=== PATIENT | male | born 1945 ===

== ENCOUNTER → 2020-07-05 13:24 | Outpatient (REF) | payer MEDICARE, SELFPAY ==
--- NOTE | 2020-07-05 13:37 | CA_ITS ---
Transthoracic Echocardiogram Patient (Last, First, Middle): Kelly Cheney, Gender: Male Date of : 1945 Age: 75 Procedure Date: 07/05/2020 Procedure Type: Transthoracic Echocardiogram Location: OP Height: 165.1 cm Weight: 64.41 kg BSA: 1.71 m2 Heart Rate: bpm BP: 130 / 66 mmHg Floor Cleaner: [facility] ([place], [place]) MD: Alonso Rajan MD Symptoms: s/p avr z95.2 mechanical Study Quality: Good ECG Rhythm: Sinus bradycardia Conclusions: - The left ventricular systolic function is normal. The visually estimated ejection fraction is between 55-60%. - Mildly increased right ventricular cavity size. - A mechanical prosthetic aortic valve is present. The prosthetic aortic valve appears to be functioning normally. - There is moderate tricuspid valve regurgitation. - Mild pulmonary hypertension is present. - There is mild dilatation of the ascending aorta measuring 4.30 cm. Findings Left Ventricle Normal left ventricular cavity size. There is moderately increased left ventricular wall thickness. The left ventricular systolic function is normal. The visually estimated ejection fraction is between 55-60%. There is no evidence of regional wall motion abnormalities. Diastolic function is indeterminate on the basis of available data. Right Ventricle Mildly increased right ventricular cavity size. There is normal right ventricular systolic function. Atria Moderate biatrial enlargement. Aortic Valve A mechanical prosthetic aortic valve is present. The prosthetic aortic valve appears to be functioning normally. The peak aortic velocity is 2.61 m/s with a calculated peak gradient of 27 mmHg. The mean gradient is 16 mmHg. The aortic valve area is 1.24 cm2. There is trace (trivial) aortic valve regurgitation. Trace para-valvular regurgitation. Mitral Valve There is moderate mitral annular calcification. There is trace mitral valve regurgitation. There is no mitral valve stenosis. Pulmonic Valve The pulmonic valve was not well visualized. There is trace pulmonic valve regurgitation. Tricuspid Valve Normal tricuspid valve structure. There is moderate tricuspid valve regurgitation. Mild pulmonary hypertension is present. Great Vessels There is mild dilatation of the ascending aorta measuring 4.30 cm. Venous The inferior vena cava is normal in size and collapses greater than 50% with inspiration. Pericardium/Pleural There is no evidence of pericardial effusion. Prior Study Comparison No significant change compared to prior study dated: 09/29/2019. Measurements 2D Linear Measurements RVIDd: 3.33 RVIDd Index: 1.95 IVSd: 1.34 0.6-0.9/0.6-1.0 cm LVIDd: 4.32 3.9-5.3/4.2-5.9 cm LVIDd Index: 2.53 2.4-3.2/2.2-3.1 cm/m2 LVIDs: 1.83 2.0-3.6 cm LVPWd: 1.37 0.7-1.1 cm Ao Root: 3.60 2.1-3.5 cm LA Diam: 4.60 2.7-3.8/3.0-4.0 cm LAIDs Index: 2.69 1.5-2.3 cm/m2 LV Mass: 277.48 67-162/88-224 g LV Mass Index: 162.27 43-95/49-115 g/m2 LVOT Diam: 1.90 3.0+(-)1.3 cm 2D Systolic Function EF 4C: 52.40 >55% EF 2C: 69.70 >55% EF BiP: 61.60 >55% Mitral Valve MV Pk E: 1.29 MV PK A: 1.24 MV Decel Time: 512.00 E/A: 1.00 E'Lateral: 6.00 E'Medial: 3.67 E/E' Med: 35.10 E/E' Lat: 21.50 PHT: 150.00 MVA PHT: 1.47 Decel Benton: 2.51 Aortic Valve AoV Pk Manny: 2.61 AoV Mn Manny: 1.81 AoV VTI: 0.53 AoV Pk Grad: 27.00 Aov Mn Grad: 16.00 THERESE Cont.VTI: 1.24 LVOT LVOT Pk Manny: 1.05 LVOT Mn Manny: 0.65 LVOT VTI: 0.23 LVOT Pk Grad: 4.00 LVOT Mn Grad: 2.00 LVOT Diam: 1.90 LVOT Area: 2.84 Diastolic Function MV Pk E: 1.29 MV Pk A: 1.24 E/A: 1.00 E'Medial: 3.67 E/E' Med: 35.10 E' Laterial: 6.00 E/E' Lat: 21.50 Tricuspid Valve TR Pk Manny: 3.03 TR Pk Grad: 37.00 RA Press: 8.00 RVSP: 45.00 Great Vessels Aorta Ao Root-2D: 3.60 2.0-3.7 cm Ao Asc: 4.30 2.1-3.4 cm Ao Arch: 3.40 Updated in Other Vendor System with Status of Final Alonso Rajan MD electronically signed on 07/06/2020 5:31:48 PM with status of Final
== END ==
LOC: HO.CARD 13:24
PROVIDERS: Visit Provider Internal Medicine
DX: I77.810 Thoracic aortic ectasia (principal); Z95.2 Presence of prosthetic heart valve
CPT/HCPCS: 93306

== ENCOUNTER → 2020-10-04 08:23 | Outpatient (BNVA) | payer MEDICARE, SELFPAY | PROVIDERS: Visit Provider Internal Medicine | DX: I07.1 Rheumatic tricuspid insufficiency (principal); I77.810 Thoracic aortic ectasia; R00.1 Bradycardia, unspecified; Z95.2 Presence of prosthetic heart valve | CPT/HCPCS: 93005; 99212 ==

== ENCOUNTER → 2021-04-13 12:51 | Outpatient (REF) | payer MEDICARE, SELFPAY ==
--- NOTE | 2021-04-13 12:54 | CA_ITS ---
Transthoracic Echocardiogram Patient (Last, First, Middle): Kelly Cheney, Gender: Male Date of : 1945 Age: 75 Procedure Date: 04/13/2021 Procedure Type: Transthoracic Echocardiogram Location: OP Height: 165.1 cm Weight: 64.41 kg BSA: 1.71 m2 Heart Rate: bpm BP: 160 / 66 mmHg Grinder Dresser: Shilpi MD: Alonso Rajan MD Front Desk Administrator: Jorge Carrillo MD Symptoms: Z95.2 - Presence of prosthetic heart valve Study Quality: Good ECG Rhythm: Sinus Conclusions: - 1. Normal LV systolic function with mild LVH with pseudonormal filling pattern 2. Mechanical aortic valve prosthesis appears to be function normally with mean gradient of 20 mm of mercury 3. Severe mitral calcification with possible mild mitral stenosis 4. Mildly dilated ascending aorta at 4.3 cm 5. Moderately elevated right ventricular systolic pressure 6. No gross pericardial effusion Findings Left Ventricle Normal left ventricular size and systolic function. There is mildly increased left ventricular wall thickness. The visually estimated ejection fraction is between 60-65%. Spectral Doppler is indicative of a pseudonormal filling pattern. Right Ventricle Moderately increased right ventricular cavity size. There is normal right ventricular systolic function. Atria The left atrium is mildly dilated. There is no evidence of interatrial shunt. The right atrium is moderately dilated. Aortic Valve A mechanical prosthetic aortic valve is present. The prosthetic aortic valve appears to be functioning normally. The mean gradient is 20 mmHg. There is trace (trivial) aortic valve regurgitation. Gradient across the mechanical process is slightly elevated at 20 mm of mercury with normal aortic ejection time with effective orifice area calculated at 1.51 centimeters sq. Mitral Valve There is mild anterior and severe posterior mitral leaflet thickening. There is severe mitral annular calcification. There is trace mitral valve regurgitation. There is mild mitral valve stenosis. Pulmonic Valve The pulmonic valve is likely normal. There is trace to mild pulmonic valve regurgitation. Tricuspid Valve Normal tricuspid valve structure. There is moderate tricuspid valve regurgitation. Mildly elevated right atrial pressure. Moderate pulmonary hypertension is present. Great Vessels The pulmonary artery was not well visualized. There is mild dilatation of the ascending aorta measuring 4.30 cm. Venous The inferior vena cava is mildly dilated and collapses greater than 50% with inspiration. Pericardium/Pleural There is no evidence of pericardial effusion. Prior Study Comparison Changes noted compared to prior study dated: 07/05/2020. RV systolic pressure is increased Measurements 2D Linear Measurements RVIDd: 3.24 RVIDd Index: 1.89 IVSd: 1.34 0.6-0.9/0.6-1.0 cm LVIDd: 4.94 3.9-5.3/4.2-5.9 cm LVIDd Index: 2.89 2.4-3.2/2.2-3.1 cm/m2 LVIDs: 2.75 2.0-3.6 cm LVPWd: 1.02 0.7-1.1 cm Ao Root: 3.70 2.1-3.5 cm LA Diam: 4.30 2.7-3.8/3.0-4.0 cm LAIDs Index: 2.51 1.5-2.3 cm/m2 LV Mass: 279.20 67-162/88-224 g LV Mass Index: 163.28 43-95/49-115 g/m2 LVOT Diam: 2.30 3.0+(-)1.3 cm 2D Systolic Function EF 4C: 67.40 >55% EF 2C: 63.30 >55% EF BiP: 63.50 >55% Mitral Valve MV VTI: 0.72 MV Pk Manny: 1.38 MV Mn Manny: 0.68 MV Pk Grad: 8.00 MV Mn Grad: 2.00 MV Pk E: 1.35 MV PK A: 1.26 MV Decel Time: 391.00 E/A: 1.10 E'Lateral: 5.55 E'Medial: 3.37 E/E' Med: 40.10 E/E' Lat: 24.30 PHT: 143.00 MVA PHT: 1.54 MVA Continuity: 1.67 Decel Powell: 2.62 Aortic Valve AoV Pk Manny: 3.04 AoV Mn Manny: 2.07 AoV VTI: 0.79 AoV Pk Grad: 37.00 Aov Mn Grad: 20.00 THERESE Cont.VTI: 1.51 LVOT LVOT Pk Manny: 1.08 LVOT Mn Manny: 0.70 LVOT VTI: 0.29 LVOT Pk Grad: 5.00 LVOT Mn Grad: 2.00 LVOT Diam: 2.30 LVOT Area: 4.15 Diastolic Function MV Pk E: 1.35 MV Pk A: 1.26 E/A: 1.10 E'Medial: 3.37 E/E' Med: 40.10 E' Laterial: 5.55 E/E' Lat: 24.30 Tricuspid Valve TR Pk Manny: 3.38 TR Pk Grad: 46.00 RA Press: 8.00 RVSP: 54.00 Great Vessels Aorta Ao Root-2D: 3.70 2.0-3.7 cm Ao Asc: 4.30 2.1-3.4 cm Updated in Other Vendor System with Status of Final Jorge Carrillo MD electronically signed on 04/14/2021 2:34:16 PM with status of Final
== END ==
LOC: HO.CARD 12:51
PROVIDERS: Visit Provider Internal Medicine
DX: Z95.2 Presence of prosthetic heart valve (principal)
CPT/HCPCS: 93306

== ENCOUNTER → 2021-04-20 13:59 | Outpatient (BNVA) | payer MEDICARE, SELFPAY | PROVIDERS: Visit Provider Internal Medicine | DX: Z95.2 Presence of prosthetic heart valve (principal); I07.1 Rheumatic tricuspid insufficiency; I77.810 Thoracic aortic ectasia; R00.1 Bradycardia, unspecified; R03.0 Elevated blood-pressure reading, without diagnosis of hypertension; Z87.891 Personal history of nicotine dependence; Z79.02 Long term (current) use of antithrombotics/antiplatelets | CPT/HCPCS: 99212 ==

== ENCOUNTER → 2021-08-03 14:51 | Outpatient (BNVA) | payer MEDICARE, SELFPAY | PROVIDERS: Visit Provider Internal Medicine | DX: I07.1 Rheumatic tricuspid insufficiency (principal); I77.810 Thoracic aortic ectasia; I10 Essential (primary) hypertension; R00.1 Bradycardia, unspecified; Z95.2 Presence of prosthetic heart valve | CPT/HCPCS: 99212 ==

== ENCOUNTER 2022-02-24 21:42 | Emergency (ER) | payer MEDICARE, SELFPAY ==
[2022-02-24 22:18] VITALS: BP 151/61; PULSE 40; RESP 20; TEMP 36.1; O2SAT 96; BMI 23.6
--- NOTE | 2022-02-24 23:42 | ED.WOUNDLAC ---
HPI - Wound/Laceration General Chief Complaint: Wound/Laceration Stated Complaint: lac on hand Time Seen by Provider: 02/24/22 23:42 Source: patient and family (Son) Mode of arrival: ambulatory Limitations: no limitations History of Present Illness HPI narrative: 76-year-old male came in for evaluation of left ring finger laceration. Patient had finger laceration while was cutting a potato with a kitchen knife, patient is now on Coumadin for aortic valve replacement, patient also has a history of sinus bradycardia. Related Data Home Medications Medication Instructions Recorded Confirmed warfarin 1 mg tablet See Rx Instructions PO .COMPLEX 10/04/20 08/03/21 warfarin 5 mg tablet 5 mg PO DAILY 10/04/20 08/03/21 Previous Rx's Medication Instructions Recorded amlodipine 2.5 mg tablet 5 mg PO DAILY 90 Days #180 tab 08/03/21 aspirin 81 mg tablet,delayed 81 mg PO DAILY #90 tab 10/20/21 release Allergies Allergy/AdvReac Type Severity Reaction Status Date / Time No Known Allergies Allergy Verified 04/20/21 14:06 Review of Systems Review of Systems: All other systems are reviewed and are negative Constitutional: Reports as per HPI and Reports no additional constitutional complaints Eyes: Reports as per HPI and Reports no additional eye complaints Reports system reviewed and no additional complaints, except as documented Cardiovascular: Reports as per HPI and Reports no additional cardiovascular complaints Respiratory: Reports as per HPI and Reports no additional respiratory complaints Gastrointestinal: Reports as per HPI and Reports no additional gastrointestinal complaints Genitourinary: Reports no additional female genitourinary complaints Musculoskeletal: Reports no additional musculoskeletal complaints Skin/Breast: Reports system reviewed and no additional complaints, except as docu Psychiatric: Reports no additional psychiatric complaints Endocrine: Reports no additional endocrine complaints Hematologic/Lymphatic: Reports no additional hematologic/lymphatic complaints Allergic/Immunologic: Reports no additional allergic/immunologic complaints Reports system reviewed and no additional complaints, except as documented and Reports Abnormal speech present [facility] Past Medical History Medical History Ascending aorta dilatation Rheumatic tricuspid regurgitation Sinus bradycardia Surgical History History of aortic valve replacement (~1990) History of photovaporization of prostate (~11/13/19) Status post mechanical aortic valve replacement Family History Family History Father No problems noted. Mother Cancer Social History Social History Patient Tobacco Use Status: Former Tobacco user Quit Date: 10 yrs Advance Directives: No Advance Directives Information Provided: No Physical Exam Vital Signs: Vital Signs: Last Vital Signs Temp 97 F 02/24/22 22:18 Pulse 36 L 02/25/22 00:01 Resp 18 02/25/22 00:01 BP 143/67 H 02/25/22 00:01 Pulse Ox 97 02/25/22 00:01 BMI result Body Mass Index 23.6 Vital signs have been reviewed as appeared to be correct. Blood pressure normal. Bradycardia (patient with history of sinus bradycardia patient is asymptomatic). Respiration rate normal. Temperature normal. Oxygen saturation normal. Appearance: Alert. Oriented X3. No acute distress. Head: Normal external exam. Normocephalic. Atraumatic. No [place] signs noted. No raccoon eyes noted Eyes: PERRLA. EOMI. Conjunctiva and sclera normal. Eyelids normal. ENT: TM's Normal. Pharynx normal. Uvula midline. Moist mucous membranes. No trismus noted. No drooling noted. No muffled voice noted. Neck: Normal inspection. Neck supple. FROM. No adenopathy. Thyroid Normal. No meningeal signs. No neck mass noted. CVS: Normal heart rate and rhythm. Heart sound normal. No murmurs noted. Pulses normal throughout. Respiratory: No respiratory distress. Painless inspiration. Breath sounds normal. No wheezes/rales/rhonchi noted. Chest nontender. No accessory muscle usage noted or decreased air movement noted. Abdomen: Soft and nontender. Bowel sounds normal in all 4 quadrants. No distention noted. No organomegaly noted. No visible injury noted. Back: No CVA tenderness. Full range of motion noted. Skin: Skin warm and dry. Normal skin color. Normal skin turgor. No rashes/lesions/lacerations noted. Extremities: Left hand exam: 1 cm laceration on the radial aspect of the distal phalanx, slow bleeding from the incision. Neuro: Oriented X 3. Cranial nerve exam: II-XII are grossly intact No motor deficit. No sensory deficit. Reflexes normal. Course Course Course Narrative: 1. patient found to be bradycardic with no symptoms, patient stated that he usually run low heart rate with no symptoms, stated that it runs in the whole family. 2. Patient was observed in the ED with small laceration on left 4th finger no active bleeding at discharge, needed no sutures, dressing was applied. Discharge Plan Discharge Clinical Impression: Finger laceration Patient Disposition: Home, Self-Care Instructions: Finger Laceration (ED) Additional Instructions: Return if any bleeding. Prescriptions: No Action aspirin 81 mg tablet,delayed release (DR/EC) 81 mg PO DAILY Qty: 90 3RF warfarin 1 mg tablet See Rx Instructions PO .COMPLEX 0RF Rx Instructions: as directed PO; warfarin 5 mg tablet 5 mg PO DAILY 0RF amlodipine 2.5 mg tablet 5 mg PO DAILY 90 Days Qty: 180 4RF Referrals: Physician,Darcie J [Primary Care Provider] -
[2022-02-25 00:01] VITALS: BP 143/67; PULSE 36; RESP 18; O2SAT 97
== END 2022-02-25 02:48 | disposition home or self-care (01) ==
PROVIDERS: Emergency Provider Emergency Medicine
DX: S61.215A Laceration without foreign body of left ring finger without damage to nail, initial encounter (principal); R00.1 Bradycardia, unspecified; W26.0XXA Contact with knife, initial encounter; Y93.G3 Activity, cooking and baking; Y92.000 Kitchen of unspecified non-institutional (private) residence as the place of occurrence of the external cause; Y99.9 Unspecified external cause status; Z79.899 Other long term (current) drug therapy; Z87.891 Personal history of nicotine dependence
CPT/HCPCS: 99281; 99283

== ENCOUNTER 2022-02-27 10:36 | Emergency (ER) | payer MEDICARE, SELFPAY ==
[2022-02-27 10:49] VITALS: BP 132/63; PULSE 53; RESP 18; TEMP 36.9; O2SAT 98; BMI 23.6
--- NOTE | 2022-02-27 11:23 | ED.WOUNDLAC ---
HPI - Wound/Laceration General Chief Complaint: Wound/Laceration Stated Complaint: laceration Time Seen by Provider: 02/27/22 11:05 Source: patient Mode of arrival: ambulatory Limitations: no limitations History of Present Illness HPI narrative: 76 y/o male with history of aortic valve replacement on Coumadin presenting back to the ER for wound evaluation. He initially presented on 02/24 with a laceration to his left 4th digit from a butter knife while cutting potatoes. Wound was closed with skin glue. Patient reports he was told to keep the dressing on for 3 days and when he took it down today there was some bleeding coming from one of the edges. He denies hitting it on anything or any new trauma. He denies numbness, weakness or tingling. His INR has been therapeutic. Onset (ago): day(s) (3) Extremity Location: left: hand (4th digit ) Place: home Patient tetanus UTD: Yes Context: accidental Associated symptoms: other (bleeding) Treatments prior to arrival: bandage Related Data Home Medications Medication Instructions Recorded Confirmed warfarin 1 mg tablet See Rx Instructions PO .COMPLEX 10/04/20 08/03/21 warfarin 5 mg tablet 5 mg PO DAILY 10/04/20 08/03/21 Previous Rx's Medication Instructions Recorded amlodipine 2.5 mg tablet 5 mg PO DAILY 90 Days #180 tab 08/03/21 aspirin 81 mg tablet,delayed 81 mg PO DAILY #90 tab 10/20/21 release Allergies Allergy/AdvReac Type Severity Reaction Status Date / Time No Known Allergies Allergy Verified 04/20/21 14:06 Review of Systems Review of Systems: Constitutional: No Fever, No Chills Gastrointestinal: No Nausea, No Vomiting Musculoskeletal: No joint pain, No Myalgias Skin: No Skin Lesions, No rash Neuro: No Weakness, No Numbness, No Dizziness, No Headache Psych: + Anxiety/Panic, No Depression Heme/Lymph: + Bruising, No Lymphadenopathy, +Easy bleeding PMFSH Past Medical History Medical History Ascending aorta dilatation Rheumatic tricuspid regurgitation Sinus bradycardia Surgical History History of aortic valve replacement (~1990) History of photovaporization of prostate (~11/13/19) Status post mechanical aortic valve replacement Family History Family History Father No problems noted. Mother Cancer Social History Social History Patient Tobacco Use Status: Former Tobacco user Quit Date: 10 yrs Advance Directives: Yes Advance Directives Information Provided: Yes Advance Directives on File: No Physical Exam Vital Signs: Vital Signs: Last Vital Signs Temp 98.4 F 02/27/22 10:49 Pulse 53 02/27/22 10:49 Resp 18 02/27/22 10:49 BP 132/63 02/27/22 10:49 Pulse Ox 98 02/27/22 10:49 BMI result Body Mass Index 23.6 Appearance: Alert. Oriented X3. No acute distress. HEENT: normal inspection CVS: Normal heart rate and rhythm. Pulses normal. Respiratory: No respiratory distress. Skin: Skin warm and dry. Normal skin color. Normal skin turgor. No rashes. Extremities: palmar aspect of the left 4th digit with dark dried blood and skin glue present over a prior linear wound, the lateral aspect of the wound with a small amount of red blood under the skin glue, no visible active bleeding. normal ROM. Neuro: Oriented X 3. No motor deficit. No sensory deficit. Course Course Course Narrative: 76-year-old male presents to the ER for evaluation of bleeding from a wound that was closed with skin glue 3 days ago. He is on Coumadin and concerned about the bleeding today. On exam here is no active bleeding but scant amount new red bleed under the glue. Steri streps were used to reinforce with good effect. Patient counseled on wound care and return precautions. Stable for d/c home. Discharge Plan Discharge Clinical Impression: Laceration Patient Disposition: Home, Self-Care Instructions: Laceration Without Closure (ED) Additional Instructions: Leave the Steri-Strips in place, do not peel them off. When they start to for a just trim the edges that have frayed. They will come off on their own in about 1 week. Keep wound clean and covered. Do not get wet. If you develop worsening or new bleeding present back to the ER for further evaluation. Prescriptions: No Action aspirin 81 mg tablet,delayed release (DR/EC) 81 mg PO DAILY Qty: 90 3RF warfarin 1 mg tablet See Rx Instructions PO .COMPLEX 0RF Rx Instructions: as directed PO; warfarin 5 mg tablet 5 mg PO DAILY 0RF amlodipine 2.5 mg tablet 5 mg PO DAILY 90 Days Qty: 180 4RF
--- NOTE | 2022-02-27 11:38 | PC.NURSE ---
PT UNHAPPY WITH CARE FROM THE LAST TIME HE WAS SEEN IN ED. PT ASKING TO FILE COMPLAINT. 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 PT VERY HAPPY WITH CARE HE RECEIVED TODAY.
== END 2022-02-27 11:43 | disposition home or self-care (01) ==
PROVIDERS: Emergency Provider Emergency Medicine; PCP Family Medicine
DX: S61.215D Laceration without foreign body of left ring finger without damage to nail, subsequent encounter (principal); W26.0XXD Contact with knife, subsequent encounter
CPT/HCPCS: 99283

== ENCOUNTER → 2023-02-25 10:22 | Outpatient (BNVA) | payer MEDICARE, SELFPAY | PROVIDERS: PCP Family Medicine; Referring Provider Family Medicine; Visit Provider Internal Medicine | DX: I07.1 Rheumatic tricuspid insufficiency (principal); I77.810 Thoracic aortic ectasia; I10 Essential (primary) hypertension; Z95.2 Presence of prosthetic heart valve | CPT/HCPCS: 93005; 99212 ==

== ENCOUNTER → 2023-12-23 15:19 | Outpatient (REF) | payer MEDICARE, SELFPAY ==
--- NOTE | 2023-12-23 15:22 | CA_ITS ---
Transthoracic Echocardiogram Patient (Last, First, Middle): Kelly Cheney, Gender: Male Date of : 1945 Age: 78 Procedure Date: 12/23/2023 Procedure Type: Transthoracic Echocardiogram Location: OP Height: 165.1 cm Weight: 63.5 kg BSA: 1.70 m2 Heart Rate: bpm BP: 16 / 74 mmHg Associate Professor Of Library Science: SB Referring MD: Alonso Rajan MD Parts Facilitator: Jorge Carrillo MD Symptoms: Z95.2 - Presence of prosthetic heart valve Study Quality: Adequate ECG Rhythm: Atrial Fibrillation Conclusions: - 1. Normal LV ejection fraction of 65-70% with mild LVH with elevated filling pressures 2. At least mildly dilated left atrium 3. Mechanical aortic valve with mean gradient of 11 mm Hg 4. Severe mitral calcification 5. Normal RV systolic pressure on this study 6. Moderately dilated ascending aorta at 4.6 cm 7. No gross pericardial effusion Findings Left Ventricle Normal left ventricular size and systolic function. There is mildly increased left ventricular wall thickness. The visually estimated ejection fraction is between 65-70%. Diastolic function is indeterminate on the basis of available data. Elevated left ventricular end diastolic pressure. There is moderate septal asymmetric hypertrophy. Right Ventricle Normal right ventricular cavity size and systolic function. Atria The left atrium is mildly dilated. There is no evidence of interatrial shunt. The right atrium is moderately dilated. Aortic Valve A mechanical prosthetic aortic valve is present. The prosthetic aortic valve appears to be functioning normally. The mean gradient is 11 mmHg. There is trace (trivial) aortic valve regurgitation. Mitral Valve There is mild anterior and severe posterior mitral leaflet thickening. There is moderate mitral annular calcification. There is mild mitral valve regurgitation. There is no mitral valve stenosis. Pulmonic Valve The pulmonic valve is likely normal. There is trace pulmonic valve regurgitation. Tricuspid Valve Normal tricuspid valve structure. There is moderate tricuspid valve regurgitation. The right ventricular systolic pressure is normal. The right ventricular systolic pressure is 17 mmHg. Normal right atrial pressure. There is no evidence of pulmonary hypertension. Great Vessels There is moderate dilatation of the ascending aorta measuring 4.60 cm. Venous The inferior vena cava is normal in size and collapses greater than 50% with inspiration. Pericardium/Pleural There is no evidence of pericardial effusion. Prior Study Comparison Changes noted compared to prior study dated: 04/13/2021. ascending aorta is moderately dilated at 4.6 cm. RV systolic pressure is measured to be within normal limits Measurements 2D Linear Measurements IVSd: 1.61 0.6-0.9/0.6-1.0 cm LVIDd: 3.37 3.9-5.3/4.2-5.9 cm LVIDd Index: 1.98 2.4-3.2/2.2-3.1 cm/m2 LVIDs: 2.29 2.0-3.6 cm LVPWd: 1.14 0.7-1.1 cm LA Diam: 4.10 2.7-3.8/3.0-4.0 cm LAIDs Index: 2.41 1.5-2.3 cm/m2 LV Mass: 198.59 67-162/88-224 g LV Mass Index: 116.82 43-95/49-115 g/m2 LVOT Diam: 2.20 3.0+(-)1.3 cm 2D Systolic Function EF 4C: 53.70 >55% EF 2C: 75.60 >55% EF BiP: 67.40 >55% Mitral Valve MV VTI: 0.35 MV Pk Manny: 1.55 MV Mn Manny: 0.76 MV Pk Grad: 10.00 MV Mn Grad: 3.00 MV Pk E: 1.39 MV Decel Time: 248.00 E'Lateral: 6.18 E'Medial: 4.28 E/E' Med: 32.50 E/E' Lat: 22.50 MVA Continuity: 1.67 Aortic Valve AoV Pk Manny: 2.08 AoV Mn Manny: 1.53 AoV VTI: 0.34 AoV Pk Grad: 17.00 Aov Mn Grad: 11.00 THERESE Cont.VTI: 1.69 LVOT LVOT Pk Manny: 0.86 LVOT Mn Manny: 0.57 LVOT VTI: 0.15 LVOT Pk Grad: 3.00 LVOT Mn Grad: 1.00 LVOT Diam: 2.20 LVOT Area: 3.80 Diastolic Function MV Pk E: 1.39 E'Medial: 4.28 E/E' Med: 32.50 E' Laterial: 6.18 E/E' Lat: 22.50 Right Ventricle TAPSE (mm): 12.20 TVS' Manny: 9.20 Tricuspid Valve TR Pk Manny: 1.89 TR Pk Grad: 14.00 RA Press: 3.00 RVSP: 17.00 Great Vessels Aorta Sinus of Valsalva: 3.90 2.0-3.5 cm Ao Asc: 4.60 2.1-3.4 cm Pulmonary Valve PV Pk Manny: 0.95 Peak PV Grad: 4.00 Updated in Other Vendor System with Status of Final Jorge Carrillo MD electronically signed on 12/24/2023 1:09:02 PM with status of Final
== END ==
LOC: HO.CARD 15:19
PROVIDERS: Visit Provider Internal Medicine
DX: I77.810 Thoracic aortic ectasia (principal); Z95.2 Presence of prosthetic heart valve
CPT/HCPCS: 93306

== ENCOUNTER → 2023-12-23 15:22 | Outpatient (BNV) | payer MEDICARE, SELFPAY | PROVIDERS: Visit Provider Internal Medicine Cardiovascular Disease | DX: I34.0 Nonrheumatic mitral (valve) insufficiency (principal); I34.81 Nonrheumatic mitral (valve) annulus calcification; Z95.2 Presence of prosthetic heart valve; I71.21 Aneurysm of the ascending aorta, without rupture | CPT/HCPCS: 93306 ==

== ENCOUNTER 2024-01-08 14:24 | Outpatient (AMB) | payer MEDICARE, SELFPAY ==
[2024-01-08 14:28] VITALS: BP 130/62; PULSE 91; BMI 23.0
--- NOTE | 2024-01-08 14:28 | MHC.OFFVIS ---
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 He used to be followed up at [facility] in the past. Per patient, rheumatic fever as a child. This led to aortic regurgitation and then eventually mechanical aortic valve replacement. This was performed in [facility] in 1990. In the EKG last year, he also had atrial fibrillation with controlled rate. Overall, he feels good. Absolutely no cardiac symptoms. He goes to [place] for a few months intermittently. [facility] Medical History (Updated 01/08/24 @ 15:00 by Alonso Rajan MD) Persistent atrial fibrillation Rheumatic tricuspid regurgitation Sinus bradycardia Ascending aorta dilatation Surgical History Status post mechanical aortic valve replacement History of photovaporization of prostate (~11/13/19) History of aortic valve replacement (~1990) Family History Father No problems noted. Mother Cancer Social History Patient Tobacco Use Status: Former Tobacco user Quit Date: 10 yrs Review of Systems Const Denies chills, Denies fatigue, Denies fever(s), Denies frequent falls, Denies weakness, Denies weight gain and Denies weight loss ENT Denies dizziness Card Denies chest pain, Denies leg edema, Denies lightheadedness, Denies palpitations, Denies dyspnea and Denies dyspnea on exertion Resp Denies cough, Denies dyspnea and Denies dyspnea on exertion GI Denies hematochezia Musc Denies abnormal gait, Denies muscle weakness, Denies numbness, Denies radiating pain into limb and Denies tingling Neuro Denies abnormal gait, Denies dizziness, Denies frequent falls, Denies numbness, Denies tingling and Denies weakness Endo Denies fatigue and Denies palpitations Physical Exam Vital Signs: Last Vital Signs Pulse 91 01/08/24 14:28 BP 130/62 01/08/24 14:28 BMI result Body Mass Index 23.0 Const General: cooperative, comfortable and no acute distress Orientation/consciousness: patient oriented x3 HEENT Other: Unremarkable Neck Neck: Yes normal visual inspection Chest Chest palpation & inspection: normal inspection of the chest Resp Auscultation: clear to auscultation bilaterally, no crackles and no wheezes Cardio Jugular venous distension: no JVD Palpation: normal PMI Heart sounds: Other heart sounds present (Normal prosthetic heart sound with 2/6 TEODORA aortic area) GI Palpation (GI): Soft to palpation Back/Spine/Pelvis Other: unremarkable Skin General skin exam: no rashes or lesions noted Neuro General: patient oriented x3 Extrem General: Yes no clubbing, cyanosis or edema Psych Mental Status: mental status grossly normal Office Procedures EKG Details: EKG with atrial fibrillation at a rate of 84/Min; right bundle-branch block with left anterior fascicular block. [id number], Complete Assessment & Plan Assessment & Plan (1) Status post mechanical aortic valve replacement: Code(s): Z95.2 - Presence of prosthetic heart valve Plan: In the most recent echocardiogram, normal function mechanical aortic valve. Mean gradient is 11 mm Hg. Continue aspirin/warfarin as currently on. (2) Rheumatic tricuspid regurgitation: Code(s): I07.1 - Rheumatic tricuspid insufficiency Plan: Moderate tricuspid regurgitation on the echocardiogram. No specific intervention at this time. (3) Persistent atrial fibrillation: Code(s): I48.19 - Other persistent atrial fibrillation Plan: Spontaneously well rate controlled. Already on anticoagulation. He does not really have any symptoms from this. (4) Ascending aorta dilatation: Code(s): I77.810 - Thoracic aortic ectasia Plan: In the most recent echo, ascending aortic size 4.6 cm. Prior to that, 4.3 cm. Will need to be rechecked in about 6 months' time. He is traveling to [place] and he can do this locally. He also has a local evaluation specialist in [place]. Avoid any strenuous physical exertion. We discussed about this today. (5) Essential hypertension: Code(s): I10 - Essential (primary) hypertension Plan: Continue amlodipine. Orders: Orders CA echo transthoracic complete 1 Year Z95.2 - Presence of prosthetic heart valve Coding Level of Care Code Est Pt Level 4 (14692) Diagnoses Status post mechanical aortic valve replacement Z95.2 Rheumatic tricuspid regurgitation I07.1 Persistent atrial fibrillation I48.19 Ascending aorta dilatation I77.810 Essential hypertension I10 CPT Codes EKG - CPT: 25077-[id number], Complete ([id number])
== END 2024-01-08 14:53 | disposition home or self-care (01) ==
PROVIDERS: PCP Family Medicine; Visit Provider Internal Medicine
DX: Z95.2 Presence of prosthetic heart valve (principal); I07.1 Rheumatic tricuspid insufficiency; I48.19 Other persistent atrial fibrillation; I77.810 Thoracic aortic ectasia; I10 Essential (primary) hypertension
CPT/HCPCS: 93010; 99214

== ENCOUNTER → 2024-01-08 14:24 | Outpatient (BNVA) | payer MEDICARE, SELFPAY | PROVIDERS: PCP Family Medicine; Visit Provider Internal Medicine | DX: I10 Essential (primary) hypertension (principal); I48.0 Paroxysmal atrial fibrillation; I07.1 Rheumatic tricuspid insufficiency; I77.810 Thoracic aortic ectasia; Z95.2 Presence of prosthetic heart valve; Z79.01 Long term (current) use of anticoagulants; Z51.81 Encounter for therapeutic drug level monitoring | CPT/HCPCS: 93005; 99212 ==

== ENCOUNTER 2024-06-04 09:02 | Outpatient (AMB) | payer MEDICARE, SELFPAY ==
[2024-06-04 09:16] VITALS: BP 120/70; PULSE 89; BMI 23.6
--- NOTE | 2024-06-04 09:16 | MHC.OFFVIS ---
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 He used to be followed up at [facility] in the past. Per patient, rheumatic fever as a child. This led to aortic regurgitation and then eventually mechanical aortic valve replacement. This was performed in [facility] in 1990. In the EKG last year, he also had atrial fibrillation with controlled rate. He recently went to [place]. At that time, he was not feeling too good. Sometimes he was feeling his heart racing. Other times, he was getting dizzy. He saw a image archivist there who apparently suggested a pacemaker. He did undergo a Holter in [place]-daughter had taken some photographs of the strips that she showed me. Essentially, atrial fibrillation with some rapid rates. No significant pauses based on the images I could review. [facility] Medical History (Updated 06/04/24 @ 09:34 by Alonso Rajan MD) ELBERT (obstructive sleep apnea) Persistent atrial fibrillation Rheumatic tricuspid regurgitation Sinus bradycardia Ascending aorta dilatation Surgical History Status post mechanical aortic valve replacement History of photovaporization of prostate (~11/13/19) History of aortic valve replacement (~1990) Family History Father No problems noted. Mother Cancer Social History Patient Tobacco Use Status: Former Tobacco user Review of Systems Const Denies chills, Denies fatigue, Denies fever(s), Denies frequent falls, Denies weakness, Denies weight gain and Denies weight loss ENT Denies dizziness Card Denies chest pain, Denies leg edema, Denies lightheadedness, Denies palpitations, Denies dyspnea and Denies dyspnea on exertion Resp Denies cough, Denies dyspnea and Denies dyspnea on exertion GI Denies hematochezia Musc Denies abnormal gait, Denies muscle weakness, Denies numbness, Denies radiating pain into limb and Denies tingling Neuro Denies abnormal gait, Denies dizziness, Denies frequent falls, Denies numbness, Denies tingling and Denies weakness Endo Denies fatigue and Denies palpitations Physical Exam Vital Signs: Last Vital Signs Pulse 89 06/04/24 09:16 BP 120/70 06/04/24 09:16 BMI result Body Mass Index 23.6 Const General: cooperative, comfortable and no acute distress Orientation/consciousness: patient oriented x3 HEENT Other: Unremarkable Neck Neck: Yes normal visual inspection Chest Chest palpation & inspection: normal inspection of the chest Resp Auscultation: clear to auscultation bilaterally, no crackles and no wheezes Cardio Jugular venous distension: no JVD Palpation: normal PMI Heart sounds: Other heart sounds present (Normal prosthetic heart sound with 2/6 TEODORA aortic area) GI Palpation (GI): Soft to palpation Back/Spine/Pelvis Other: unremarkable Skin General skin exam: no rashes or lesions noted Neuro General: patient oriented x3 Extrem General: Yes no clubbing, cyanosis or edema Psych Mental Status: mental status grossly normal Office Procedures EKG Details: EKG with atrial fibrillation; 86/Min; right bundle-branch block and left anterior fascicular block; voltage criteria for LVH. [id number], Complete Assessment & Plan Assessment & Plan (1) Status post mechanical aortic valve replacement: Code(s): Z95.2 - Presence of prosthetic heart valve Category: Surgical Plan: In the most recent echocardiogram, normal function mechanical aortic valve. Mean gradient is 11 mm Hg. Continue aspirin/warfarin as currently on. (2) Rheumatic tricuspid regurgitation: Code(s): I07.1 - Rheumatic tricuspid insufficiency Category: Medical Plan: Moderate tricuspid regurgitation on the echocardiogram. No specific intervention at this time. (3) Persistent atrial fibrillation: Code(s): I48.19 - Other persistent atrial fibrillation Category: Medical Plan: Already on anticoagulation. In the past, no symptoms, but currently having some palpitations. While he was in sinus rhythm, he had profound sinus bradycardia. Hence we will need to be cautious with cardioversion. May need to discuss with EP about indication for pacemaker. (4) Ascending aorta dilatation: Code(s): I77.810 - Thoracic aortic ectasia Category: Medical Plan: In the most recent echo, ascending aortic size 4.6 cm. Prior to that, 4.3 cm. Recheck. (5) Essential hypertension: Code(s): I10 - Essential (primary) hypertension Category: Medical Plan: Continue amlodipine. (6) ELBERT (obstructive sleep apnea): Code(s): G47.33 - Obstructive sleep apnea (adult) (pediatric) Category: Medical Plan: Per daughter, patient probably has obstructive sleep apnea but unclear when this was last checked. Can do home sleep study. This will have an impact on the treatment of atrial fibrillation. Additionally, he also has conduction system disease. Plan Discussed with daughter who came for appointment. Orders: Orders ECG 14 day holter monitor Today I48.19 - Other persistent atrial fibrillation RT home sleep study Today G47.33 - Obstructive sleep apnea (adult) (pediatric) Coding Level of Care Code Est Pt Level 4 (85132) Diagnoses Status post mechanical aortic valve replacement Z95.2 Rheumatic tricuspid regurgitation I07.1 Persistent atrial fibrillation I48.19 Ascending aorta dilatation I77.810 Essential hypertension I10 ELBERT (obstructive sleep apnea) G47.33 CPT Codes EKG - CPT: 18453-[id number], Complete ([id number])
== END 2024-06-04 09:57 | disposition home or self-care (01) ==
PROVIDERS: PCP Family Medicine; Visit Provider Internal Medicine
DX: Z95.2 Presence of prosthetic heart valve (principal); I07.1 Rheumatic tricuspid insufficiency; I48.19 Other persistent atrial fibrillation; I77.810 Thoracic aortic ectasia; I10 Essential (primary) hypertension; G47.33 Obstructive sleep apnea (adult) (pediatric)
CPT/HCPCS: 93010; 99214

== ENCOUNTER → 2024-06-04 09:02 | Outpatient (BNVA) | payer MEDICARE, SELFPAY | PROVIDERS: PCP Family Medicine; Visit Provider Internal Medicine | DX: R42 Dizziness and giddiness (principal); R00.2 Palpitations; I45.2 Bifascicular block; I48.19 Other persistent atrial fibrillation; I07.1 Rheumatic tricuspid insufficiency; I77.810 Thoracic aortic ectasia; I10 Essential (primary) hypertension; G47.33 Obstructive sleep apnea (adult) (pediatric); Z79.01 Long term (current) use of anticoagulants; Z95.2 Presence of prosthetic heart valve | CPT/HCPCS: 93005; 99212 ==

== ENCOUNTER → 2024-06-18 13:20 | Outpatient (REF) | payer MEDICARE, SELFPAY ==
--- NOTE | 2024-06-18 13:23 | HM_ITS ---
* Total monitoring time about 2 weeks. * Underlying rhythm is atrial fibrillation. Average ventricular rate 80/Min. * Only about 0.4% of the time, rate < 60/Min. Sleep time pauses noted but do not reach significance. About 10% of the time, rate > 100/Min, with a max of 171/Min. * Occasional ventricular ectopy with a burden of 0.5%. Longest run is 3 beats. * No patient markers or diary events. MTDD
== END ==
LOC: HO.CARD 13:20
PROVIDERS: PCP Family Medicine; Visit Provider Internal Medicine
DX: I48.19 Other persistent atrial fibrillation (principal)
CPT/HCPCS: 93246

== ENCOUNTER → 2024-06-18 13:23 | Outpatient (BNV) | payer MEDICARE, SELFPAY | PROVIDERS: PCP Family Medicine; Visit Provider Internal Medicine | DX: I49.3 Ventricular premature depolarization (principal); R00.0 Tachycardia, unspecified | CPT/HCPCS: 93248 ==

== ENCOUNTER → 2024-07-22 10:48 | Outpatient (REF) | payer MEDICARE, SELFPAY | LOC: HO.SL 10:48 | PROVIDERS: PCP Family Medicine; Visit Provider Internal Medicine | DX: G47.33 Obstructive sleep apnea (adult) (pediatric) (principal) | CPT/HCPCS: 95806 ==

== ENCOUNTER → 2024-07-22 11:00 | Outpatient (BNV) | payer MEDICARE, SELFPAY | PROVIDERS: PCP Family Medicine; Visit Provider Internal Medicine | DX: G47.33 Obstructive sleep apnea (adult) (pediatric) (principal) | CPT/HCPCS: 95806 ==

== ENCOUNTER 2024-07-24 10:52 | Outpatient (AMB) | payer MEDICARE, SELFPAY ==
--- NOTE | 2024-07-24 11:08 | A.OFFVIS_ITS ---
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 Per patient, rheumatic fever as a child. This led to aortic regurgitation and then eventually mechanical aortic valve replacement. This was performed in [facility] in 1990. In the last couple of years, he has also had atrial fibrillation. The last sinus EKGs from 2020 that showed significant sinus bradycardia. He recently went to [place]. At that time, he was not feeling too good. Sometimes he was feeling his heart racing. Other times, he was getting dizzy. He saw a media/instructional designer there who apparently suggested a pacemaker. He did undergo a Holter in [place]-daughter had taken some photographs of the strips that she showed me. Essentially, atrial fibrillation with some rapid rates. No significant pauses based on the images I could review. Any case, he underwent another Holter monitor here and that still shows some atrial fibrillation with rapid rates but no profound pauses. Patient still feels palpitations intermittently. No other concerns. [facility] Medical History (Updated 06/04/24 @ 09:34 by Alonso Rajan MD) ELBERT (obstructive sleep apnea) Persistent atrial fibrillation Rheumatic tricuspid regurgitation Sinus bradycardia Ascending aorta dilatation Surgical History Status post mechanical aortic valve replacement History of photovaporization of prostate (~11/13/19) History of aortic valve replacement (~1990) Family History Father No problems noted. Mother Cancer Social History (Updated 07/24/24 @ 11:10 by Pricness Juarez CMA) Alcohol intake: never Patient Tobacco Use Status: Former Tobacco user Review of Systems Const Denies chills, Denies fatigue, Denies fever(s), Denies weight gain and Denies weight loss ENT Denies dizziness Card Denies chest pain, Denies leg edema, Denies lightheadedness, Denies palpitations, Denies dyspnea on exertion, Denies orthopnea and Denies other Resp Denies cough and Denies dyspnea on exertion GI Denies hematochezia and Denies change in stool character Musc Denies abnormal gait, Denies muscle weakness, Denies numbness, Denies radiating pain into limb and Denies tingling Neuro Denies abnormal gait, Denies dizziness, Denies numbness and Denies tingling Endo Denies fatigue and Denies palpitations Physical Exam Vital Signs: Last Vital Signs Pulse 91 07/24/24 11:09 BP 122/64 07/24/24 11:09 BMI result Body Mass Index 23.3 Const General: cooperative, comfortable and no acute distress Orientation/consciousness: patient oriented x3 HEENT Other: Unremarkable Neck Neck: Yes normal visual inspection Chest Chest palpation & inspection: normal inspection of the chest Resp Auscultation: clear to auscultation bilaterally, no crackles and no wheezes Cardio Jugular venous distension: no JVD Palpation: normal PMI Heart sounds: Other heart sounds present (Normal prosthetic heart sound with 2/6 TEODORA aortic area) GI Palpation (GI): Soft to palpation Back/Spine/Pelvis Other: unremarkable Skin General skin exam: no rashes or lesions noted Neuro General: patient oriented x3 Extrem General: Yes no clubbing, cyanosis or edema Psych Mental Status: mental status grossly normal Assessment & Plan Assessment & Plan (1) Status post mechanical aortic valve replacement: Code(s): Z95.2 - Presence of prosthetic heart valve Category: Surgical Plan: In the most recent echocardiogram, normal function mechanical aortic valve. Mean gradient is 11 mm Hg. Continue aspirin/warfarin as currently on. (2) Rheumatic tricuspid regurgitation: Code(s): I07.1 - Rheumatic tricuspid insufficiency Category: Medical Plan: Moderate tricuspid regurgitation on the echocardiogram. No specific intervention at this time. (3) Persistent atrial fibrillation: Code(s): I48.19 - Other persistent atrial fibrillation Category: Medical Plan: Last EKG in sinus rhythm is from 2020. At that time, EKG showed sinus bradycardia at 38/Min. [place] interval was 240 milliseconds. Hence it is clearly there is sinus as well as AV node dysfunction-not on any rate slowing agents at that time. Currently, in the Holter monitor, there is evidence of atrial fibrillation with rapid rates, about 10% of the time, going up to as much as 171/Min. Probably while doing some physical activity. No profound bradycardia/pauses. Findings discussed with patient. Also discussed with EP. Overall, plan of either pacemaker placement/cardioversion versus ablation; will need to see EP and then decide. Continue warfarin but will need to plan the appropriate INR before any procedures. (4) Ascending aorta dilatation: Code(s): I77.810 - Thoracic aortic ectasia Category: Medical Plan: In the most recent echo, ascending aortic size 4.6 cm. Prior to that, 4.3 cm. To be rechecked. (5) Essential hypertension: Code(s): I10 - Essential (primary) hypertension Category: Medical Plan: Continue amlodipine. (6) ELBERT (obstructive sleep apnea): Code(s): G47.33 - Obstructive sleep apnea (adult) (pediatric) Category: Medical Plan: Sleep study completed. We will await results. Plan Called and discussed with daughter over the phone. She agrees with plan. Orders: Referrals Cardiac Electrophysiology Referral I48.19 - Other persistent atrial fibrillation Coding Level of Care Code Est Pt Level 4 (45346) Diagnoses Status post mechanical aortic valve replacement Z95.2 Rheumatic tricuspid regurgitation I07.1 Persistent atrial fibrillation I48.19 Ascending aorta dilatation I77.810 Essential hypertension I10 ELBERT (obstructive sleep apnea) G47.33
[2024-07-24 11:09] VITALS: BP 122/64; PULSE 91; BMI 23.3
== END 2024-07-24 11:26 | disposition home or self-care (01) ==
LOC: HO.HCS 10:53
PROVIDERS: PCP Family Medicine; Visit Provider Internal Medicine
DX: Z95.2 Presence of prosthetic heart valve (principal); I07.1 Rheumatic tricuspid insufficiency; I48.19 Other persistent atrial fibrillation; I77.810 Thoracic aortic ectasia; I10 Essential (primary) hypertension; G47.33 Obstructive sleep apnea (adult) (pediatric)
CPT/HCPCS: 99214

== ENCOUNTER → 2024-07-24 10:52 | Outpatient (BNVA) | payer MEDICARE, SELFPAY | PROVIDERS: PCP Family Medicine; Visit Provider Internal Medicine | DX: I07.1 Rheumatic tricuspid insufficiency (principal); I48.19 Other persistent atrial fibrillation; I77.810 Thoracic aortic ectasia; I10 Essential (primary) hypertension; G47.33 Obstructive sleep apnea (adult) (pediatric); Z95.2 Presence of prosthetic heart valve | CPT/HCPCS: 99212 ==

== ENCOUNTER → 2024-07-28 09:10 | Outpatient (REF) | payer MEDICARE, SELFPAY ==
--- NOTE | 2024-07-28 09:14 | CA_ITS ---
Transthoracic Echocardiogram Patient (Last, First, Middle): Kelly Cheney, Gender: Male Date of : 1945 Age: 79 Procedure Date: 07/28/2024 Procedure Type: Transthoracic Echocardiogram Location: OP Height: 167.64 cm Weight: 64.41 kg BSA: 1.73 m2 Heart Rate: bpm BP: 101 / 68 mmHg Painter Assistant: TIMOTHY Referring MD: Alonso Rajan MD Magnetizer: Jorge Carrillo MD Symptoms: Z95.2 - Presence of prosthetic heart valve Study Quality: Adequate ECG Rhythm: Sinus with extra beats Conclusions: - 1. Normal LV ejection fraction of 65-70% with grade 2 diastolic dysfunction with mild LVH 2. Moderately dilated left atrium 3. Normally functioning mechanical prosthetic aortic valve with mean gradient of 11 mm Hg 4. Fhzn-[id number] elevation right ventricular systolic pressure with significantly elevated right atrial pressures 5. Moderately dilated ascending aorta at 4.6 cm 6. No gross pericardial effusion Findings Left Ventricle Normal left ventricular size and systolic function. There is mildly increased left ventricular wall thickness. The visually estimated ejection fraction is between 65-70%. Spectral Doppler is indicative of a restrictive filling pattern. E/E prime ratio is >15, consistent with elevated filling pressures. Evidence suggests grade III (severe) diastolic dysfunction. There is moderate septal asymmetric hypertrophy. Right Ventricle Mildly increased right ventricular cavity size. There is mildly decreased right ventricular systolic function. Atria The left atrium is moderately dilated. Interatrial shunt cannot be excluded. The right atrium is normal in size. Aortic Valve A mechanical prosthetic aortic valve is present. The prosthetic aortic valve appears to be functioning normally. The mean gradient is 10 mmHg. Mitral Valve There is mild anterior and moderate posterior mitral leaflet thickening. There is mild mitral annular calcification. There is mild mitral valve regurgitation. There is no mitral valve stenosis. Pulmonic Valve The pulmonic valve was not well visualized. Tricuspid Valve Normal tricuspid valve structure. There is moderate tricuspid valve regurgitation. Significantly elevated right atrial pressure. Mild to moderate pulmonary hypertension is present. Great Vessels The pulmonary artery was not well visualized. There is moderate dilatation of the ascending aorta measuring 4.60 cm. Venous The inferior vena cava is severely dilated and collapses less than 50% with inspiration. Pericardium/Pleural There is no evidence of pericardial effusion. Prior Study Comparison Changes noted compared to prior study dated: 12/23/2023. RVSP and RA pressures are increased. Measurements 2D Linear Measurements IVSd: 1.60 0.6-0.9/0.6-1.0 cm LVIDd: 3.22 3.9-5.3/4.2-5.9 cm LVIDd Index: 1.86 2.4-3.2/2.2-3.1 cm/m2 LVIDs: 2.31 2.0-3.6 cm LVPWd: 1.32 0.7-1.1 cm LA Diam: 4.40 2.7-3.8/3.0-4.0 cm LAIDs Index: 2.54 1.5-2.3 cm/m2 LV Mass: 206.01 67-162/88-224 g LV Mass Index: 119.08 43-95/49-115 g/m2 LVOT Diam: 2.00 3.0+(-)1.3 cm 2D Systolic Function EF 4C: 59.10 >55% EF 2C: 74.80 >55% EF BiP: 67.70 >55% Mitral Valve MV VTI: 0.36 MV Pk Manny: 1.48 MV Mn Manny: 0.86 MV Pk Grad: 9.00 MV Mn Grad: 4.00 MV Pk E: 1.48 MV PK A: 0.63 MV Decel Time: 273.00 E/A: 2.30 E'Lateral: 7.59 E'Medial: 4.36 E/E' Med: 33.90 E/E' Lat: 19.50 PHT: 80.00 MVA PHT: 2.75 MVA Continuity: 1.32 Decel [place]: 5.53 Aortic Valve AoV Pk Manny: 2.05 AoV Mn Manny: 1.51 AoV VTI: 0.44 AoV Pk Grad: 17.00 Aov Mn Grad: 10.00 THERESE Cont.VTI: 1.08 LVOT LVOT Pk Manny: 0.72 LVOT Mn Manny: 0.53 LVOT VTI: 0.15 LVOT Pk Grad: 2.00 LVOT Mn Grad: 1.00 LVOT Diam: 2.00 LVOT Area: 3.14 Diastolic Function MV Pk E: 1.48 MV Pk A: 0.63 E/A: 2.30 E'Medial: 4.36 E/E' Med: 33.90 E' Laterial: 7.59 E/E' Lat: 19.50 Right Ventricle TAPSE (mm): 18.00 TVS' Manny: 8.56 Tricuspid Valve TR Pk Manny: 2.85 TR Pk Grad: 32.00 RA Press: 15.00 RVSP: 47.00 Great Vessels Aorta Ao Asc: 4.60 2.1-3.4 cm Updated in Other Vendor System with Status of Final Jorge Carrillo MD electronically signed on 07/29/2024 11:39:37 AM with status of Final
== END ==
LOC: HO.CARD 09:10
PROVIDERS: PCP Family Medicine; Visit Provider Internal Medicine
DX: Z95.2 Presence of prosthetic heart valve (principal)
CPT/HCPCS: 93306

== ENCOUNTER → 2024-07-28 09:14 | Outpatient (BNV) | payer MEDICARE, SELFPAY | PROVIDERS: PCP Family Medicine; Visit Provider Internal Medicine Cardiovascular Disease | DX: I34.0 Nonrheumatic mitral (valve) insufficiency (principal); I36.1 Nonrheumatic tricuspid (valve) insufficiency; Z95.2 Presence of prosthetic heart valve; I42.2 Other hypertrophic cardiomyopathy | CPT/HCPCS: 93306 ==

== ENCOUNTER → 2024-11-03 09:48 | Outpatient (BNVA) | payer MEDICARE, SELFPAY | PROVIDERS: PCP Family Medicine; Referring Provider Internal Medicine; Visit Provider Internal Medicine | DX: G47.33 Obstructive sleep apnea (adult) (pediatric) (principal); I48.19 Other persistent atrial fibrillation; Z95.2 Presence of prosthetic heart valve | CPT/HCPCS: 99212 ==

== ENCOUNTER → 2024-11-03 10:41 | Outpatient (AMB) | payer MEDICARE, SELFPAY ==
--- NOTE | 2024-11-03 09:51 | MHC.OFFVIS ---
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 AFTER HIS CUSTODIAL HE SPENDS MORE TIME IN [place], [place], BUT AT LEAST 6 MONTHS HERE IN [place]. HE HAS A LONGSTANDING HISTORY OF CARDIAC ISSUES. 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 HE HAD MECHANICAL AORTIC VALVE REPLACEMENT IN 1990 IN [facility]. FOR THE LAST FEW YEARS HE HAS HAD FREQUENT BOUTS OF SHORT-LIVED PALPITATIONS. HE IS DIAGNOSED TO HAVE PAROXYSMAL ATRIAL FIBRILLATION AND IS ON ANTICOAGULATION THERAPY, WITH ELIQUIS. HE IS ALSO ON AMLODIPINE 5 MG DAILY WHICH HE STATES THAT HE IS TAKING ONLY 2.5 MG A DAY. HIS DAUGHTER WHO IS A NURSE CAME WITH HIM, AND TOLD THAT FAMILY MEMBERS HAVE NOTICED THAT WHEN HE SLEEPS AT NIGHT HE IS MOSTLY SLEEPING IN SUPINE POSITION. HE SNORES VERY HEAVY AND HAS FREQUENT RESPIRATORY PAUSES TO THE EXTENT THAT THE FAMILY MEMBERS GET KIND OF WORRIED. HE HIMSELF IS NOT AWARE OF THIS BUT DOES WAKE UP ONCE OR TWICE DURING THE NIGHT TO GO TO THE BATHROOM. HE FEELS UN- REFRESHED WHEN HE WAKES UP IN THE MORNING, AND HAS TENDENCY TO DOZE OF WHENEVER HE IS JUST SITTING AND NOT DOING ANY PHYSICAL WORK( EXCESSIVE DAYTIME SLEEPINESS ) HE HAS NOT BEEN OVERWEIGHT, THROUGHOUT HIS ADULT LIFE. HE DOES NOT HAVE ANY CHRONIC RESPIRATORY PROBLEMS. [facility] Medical History ELBERT (obstructive sleep apnea) Persistent atrial fibrillation Rheumatic tricuspid regurgitation Sinus bradycardia Ascending aorta dilatation Surgical History Status post mechanical aortic valve replacement History of photovaporization of prostate (~11/13/19) History of aortic valve replacement (~1990) Family History Father No problems noted. Mother Cancer Social History Alcohol intake: never Patient Tobacco Use Status: Former Tobacco user Review of Systems Const All systems reviewed & are unremarkable except as noted in HPI and below Eyes Reports no additional complaints ENT Reports no additional complaints, Denies nasal congestion and Denies nasal discharge Card Denies chest pain at rest, Reports irregular heart rhythm, Denies leg ulcers and Denies leg edema Resp Reports as per HPI GI Reports no additional complaints Reports no additional complaints Musc Reports no additional complaints Skin/Breast Reports system reviewed and no additional complaints, except as documented Neuro Reports no additional complaints Psych Reports no additional complaints Endo Reports no additional complaints Isaias/Lymph Reports no additional complaints Physical Exam Const Other: He is of normal weight, healthy looking, had a good conversation. General: healthy appearing, comfortable, no acute distress, alert and awake Orientation/consciousness: patient oriented x3 HEENT Head: Yes normal to inspection General nose exam: No nasal polyps present and No nasal discharge present Face and sinus: Yes sinuses nontender Mouth: oropharynx normal Teeth and gingiva: other (He does have mild RETROGNATHIA of the lower jaw) Throat: Yes posterior oropharynx normal Eyes General: appearance normal, both eyes and all related structures Neck Neck: Yes normal visual inspection, Yes no lymphadenopathy, Yes trachea midline and Yes no JVD Thyroid: Thyroid normal Chest Chest palpation & inspection: abnormal inspection of the chest (There is a midline/mid sternal surgical scar well healed), normal palpation of entire chest wall and no tenderness Resp Effort & Inspection: normal respiratory effort and able to speak in complete sentences Auscultation: no crackles and no wheezes Cardio Palpation: normal PMI Rate: regular rate Rhythm: regular rhythm Heart sounds: no gallops and Murmur heart sound present (Metallic valve sounds at the aortic area radiating along lt. sternal border) Peripheral pulses: Peripheral pulses 2+ throughout GI Palpation (GI): Soft to palpation, nontender, No hepatosplenomegaly present and no masses Auscultation: normal bowel sounds Back/Spine/Pelvis Thoracic/Lumbar Spine: thoracic and lumbar spine normal to inspection Skin General skin exam: no rashes or lesions noted Neuro General: patient oriented x3 and no focal motor deficits Cranial nerves: Yes CN's II-XII intact bilaterally Extrem General: Yes normal to inspection, Yes no clubbing, cyanosis or edema and Yes no calf tenderness Psych Appearance: grossly normal and well kempt Speech and movement: Normal speech and movement present Results Reviewed Results Reviewed: Home-based sleep study on 07/23/2024 is reviewed. Total sleep time AHI 19.7 most of the sleep in supine position supine AHI 21 and lateral position AHI 2.2 Assessment & Plan Assessment & Plan (1) ELBERT (obstructive sleep apnea): Comment: The sleep apnea in his case is predominantly positional, mostly in supine position. He does have history of loud snoring and also excessive daytime sleepiness. Code(s): G47.33 - Obstructive sleep apnea (adult) (pediatric) Category: Medical Plan: Ordinarily we could try position therapy however, he may not be able to adapt to the position therapy, and also in view of his underlying cardiac disease with history of arrhythmias, it is best to treat him with CPAP therapy. I have discussed with the patient and his daughter who is a RN, and they both understand well. He is willing to start the CPAP therapy. I would ordered CPAP with auto Pap mode pressure setting 6-20 cm using fullface mask. All the needed instructions are given to the patient. Will recheck him in 6 weeks to go over compliance and benefits. (2) Status post mechanical aortic valve replacement: Comment: Patient had aortic valve replacement back in 1989 s . He has done very well except for the onset of atrial fibrillation recently. Code(s): Z95.2 - Presence of prosthetic heart valve Category: Surgical Plan: Continue regular follow-up with cardiology service. (3) Persistent atrial fibrillation: Comment: Patient has paroxysmal or persistent atrial fibrillation. It is relatively controlled at this time. Patient is scheduled for abolition procedure in the near future. Code(s): I48.19 - Other persistent atrial fibrillation Category: Medical Plan: Continue to follow-up with cardiology service, for close monitoring and treatment of atrial fibrillation Coding Level of Care Code New Pt Level 4 (70057) Diagnoses ELBERT (obstructive sleep apnea) G47.33 Status post mechanical aortic valve replacement Z95.2 Persistent atrial fibrillation I48.19
[2024-11-03 10:03] VITALS: BP 122/72; PULSE 77; O2SAT 97; BMI 22.9
== END | disposition home or self-care (01) ==
PROVIDERS: PCP Family Medicine; Referring Provider Internal Medicine; Visit Provider Internal Medicine
DX: G47.33 Obstructive sleep apnea (adult) (pediatric) (principal); I48.19 Other persistent atrial fibrillation; Z95.2 Presence of prosthetic heart valve
CPT/HCPCS: 99214

== ENCOUNTER 2024-12-04 15:02 | Emergency (ER) | payer MEDICARE, SELFPAY ==
--- NOTE | 2024-12-04 | ECG_ITS ---
Test Reason : cp Blood Pressure : */* mmHG Vent. Rate : 44 BPM Atrial Rate : 44 BPM P-R Int : 240 ms QRS Dur : 140 ms QT Int : 514 ms P-R-T Axes : 50 -47 -9 degrees QTcB Int : 439 ms Marked sinus bradycardia with marked sinus arrhythmia with 1st degree A-V block Right bundle branch block Left anterior fascicular block Bifascicular block Minimal voltage criteria for LVH, may be normal variant ( R in aVL ) Abnormal ECG No previous ECGs available Referred By: Generic ED Physician Electronically Signed By: PAWEL REDMOND
--- NOTE | 2024-12-04 08:08 | ECG_ITS ---
Test Reason : repeat Blood Pressure : */* mmHG Vent. Rate : 43 BPM Atrial Rate : 43 BPM P-R Int : 226 ms QRS Dur : 142 ms QT Int : 526 ms P-R-T Axes : 60 -43 -13 degrees QTcB Int : 444 ms Marked sinus bradycardia with 1st degree A-V block with Premature atrial complexes Left axis deviation Right bundle branch block Minimal voltage criteria for LVH, may be normal variant ( R in aVL ) Abnormal ECG When compared with ECG of 04-Dec-2024 15:15, Premature atrial complexes are now Present Referred By: Brittney Chiang Electronically Signed By: Floyd Vanegas
[2024-12-04 15:24] VITALS: BP 141/61; PULSE 40; RESP 18; TEMP 36.8; O2SAT 97; BMI 27.6
--- NOTE | 2024-12-04 15:25 | ED_ITS ---
HPI - General Adult General Chief complaint: Arrhythmia/Palpitations Stated complaint: cp Time Seen by Provider: 12/04/24 16:40 Source: patient Mode of arrival: ambulatory Limitations: no limitations History of Present Illness ED Provider: Brittney Chiang PA-C HPI narrative: Patient is an 79 year old assigned male at with a history of rheumatic fever as a child, aortic regurg s/p mechanical aortic valve replacement that was done in [place] 1990, atrial fib s/p ablation 11/17/2024, presenting to the emergency department today with lightheadedness, dizziness, and lip lesions. Patient states that he went to the urgent care today for lip lesions and was found to have a low pulse so they sent him here. Patient states that he has been having episodes of dizziness / lightheadedness. Patient denies any abdominal pain, nausea, vomiting, fever, chills, blurry vision, double vision, loss of vision, chest pain, difficulty breathing, shortness of breath, back pain, night sweats, pain with urination, increased urinary frequency, increased urinary urgency, blood in his urine or stool, syncope or a near syncopal episode, recent trauma or falls, bowel incontinence, bladder incontinence, or any other complaints at this time. Relieving factors: none Exacerbating factors: none Associated symptoms: denies other symptoms Treatments prior to arrival: none Related Data Home Medications ?Medication ?Instructions ?Recorded ?Confirmed warfarin 5 mg tablet 5 mg PO DAILY 10/04/20 11/03/24 Previous Rx's ?Medication ?Instructions ?Recorded amlodipine 5 mg tablet 5 mg PO DAILY #90 tabs 04/13/22 aspirin 81 mg tablet,delayed 81 mg PO DAILY #90 tabs 12/07/22 release Allergies Allergy/AdvReac Type Severity Reaction Status Date / Time No Known Allergies Allergy Verified 12/04/24 15:29 Review of Systems 2 Constitutional: Constitutional: Reports no additional constitutional complaints, Denies chills, Denies fever(s) and Denies night sweats Eyes: Eyes: Reports no additional eye complaints, Denies blurry vision, Denies change in vision, Denies diplopia, Denies eye discharge, Denies loss of vision and Denies eye pain ENT: Reports dizziness Cardiovascular: Cardiovascular: Reports no additional cardiovascular complaints, Denies chest pain, Reports lightheadedness, Denies Loss of Consciousness and Denies dyspnea Respiratory: Respiratory: Reports no additional respiratory complaints and Denies dyspnea Gastrointestinal: Gastrointestinal: Reports no additional gastrointestinal complaints, Denies abdominal pain, Denies melena, Denies hematochezia, Denies change in bowel habits and Denies change in stool character Genitourinary: Genitourinary: Reports no additional male genitourinary complaints, Denies hematuria, Denies oliguria, Denies difficulty urinating, Denies dysuria, Denies urinary frequency, Denies urinary hesitancy, Denies urinary incontinence and Denies urinary urgency Musculoskeletal: Musculoskeletal: Reports no additional musculoskeletal complaints, Denies numbness and Denies tingling Neurologic: Reports dizziness, Denies loss of vision, Denies numbness and Denies tingling Psychiatric: Psychiatric: Reports no additional psychiatric complaints Endocrine: Endocrine: Reports no additional endocrine complaints Hematologic/Lymphatic: Hematologic/Lymphatic: Reports no additional hematologic/lymphatic complaints Allergic/Immunologic: Allergic/Immunologic: Reports no additional allergic/immunologic complaints PMFSH Past Medical History Attestation statement: The following information was validated with the patient. Source: old records reviewed and nursing notes reviewed Medical History ELBERT (obstructive sleep apnea) Persistent atrial fibrillation Rheumatic tricuspid regurgitation Sinus bradycardia Ascending aorta dilatation Surgical History Status post mechanical aortic valve replacement History of photovaporization of prostate (~11/13/19) History of aortic valve replacement (~1990) Family History Family History Father No problems noted. Mother Cancer Social History Social History Alcohol intake: never Patient Tobacco Use Status: Former Tobacco user Smoked in Last 30 Days: No Use of substances other than those prescribed or required for medical reasons: No Advance Directives: No Advance Directives Information Provided: Yes Do you have a plan to hurt others: No Plan Physical Exam ED Vital Signs: Vital Signs - 24 hr 12/04/24 15:24 12/04/24 16:57 12/04/24 16:57 Temperature 98.3 F Pulse Rate 40 L 42 L Pulse Rate [Automated] 42 L Respiratory Rate 18 16 Blood Pressure 141/61 H 133/70 Pulse Oximetry 97 98 Oxygen Delivery Method Room Air Room Air BMI result Body Mass Index 27.6 Const General: cooperative, no acute distress, alert and awake Nutritional Appearance: well nourished Orientation/consciousness: patient oriented x3 Limitations: no limitations HENMT Head: Yes normal to inspection and Yes atraumatic Ears: hearing grossly normal bilaterally and external ears normal General nose exam: Normal external nose present, no nasal discharge noted and no epistaxis Face and sinus: Yes normal facial exam, No abrasion and No laceration Mouth: Normal oral and palatal mucosa present, no drooling and no muffled voice Eyes General: appearance normal, both eyes and all related structures Periorbital: periorbital findings normal Eyelids: Yes eyelids normal Conjunctivae: conjunctivae normal Pupils: Equal, round and reactive pupils present EOM: EOMs intact bilaterally Neck Neck: Yes normal visual inspection, Yes full ROM and Yes no lymphadenopathy Chest Chest palpation & inspection: normal inspection of the chest Resp Effort & Inspection: normal respiratory effort and able to speak in complete sentences Cardio Rate: bradycardic Rhythm: abnormal rhythm irregularly irregular GI Inspection: Yes normal to inspection Neuro General: patient oriented x3, moves all extremities and CN's II-XI intact bilaterally Cranial nerves: Yes Equal, round and reactive pupils present Cognition (Neuro): normal cognition Extrem General: Yes normal to inspection, Yes full ROM and Yes capillary refill normal Psych Appearance: grossly normal Mental Status: mental status grossly normal Affect: normal affect Attitude: cooperative Thought process: Normal thought process present Thought content: Normal thought content present Insight: Good insight present (Psych) Course Course Course Narrative: This is a rapid medical exam performed by Laith Ellington NP: Additional HPI, ROS, PE not included below will be deferred to primary provider. Patient is an 79-year-old male with history of afib on warfarin, HTN, rheumatic tricuspid regurgitation, sinus bradycardia, ascending aortic dilatation, s/p mechanical aortic valve replacement presenting from [facility] urgent care in [place] for low HR. Patient was there for soreness to inside of lower lip, HR was noted to be 37 so he was advised to come here. He denies chest pain, palpitations, dyspnea, dizziness. Reports known hx of bradycardia. States lip discomfort has improved. Plan: EKG, labs Medical Decision Making Medical Decision Making MDM Narrative: Patient is an 79 year old assigned male at with a history of rheumatic fever as a child, aortic regurg s/p mechanical aortic valve replacement that was done in [place] 1990, atrial fib s/p ablation 11/17/2024, presenting to the emergency department today with lightheadedness, dizziness, and lip lesions. Patient's physical exam showed bradycardia in the setting of atrial fib but was otherwise unremarkable. Patient's blood work showed a mildly supratherapeutic INR for which I recommend he follows up with the coagulation clinic. Patient's EKG showed maida atrial fib. I spoke to the patient's roll coating machine operator, Dr. Rajan, who stated this is consistent with the patient's baseline and he is OK for discharge. I explained my physical exam findings as well as all test results to the patient. I answered all questions asked by the patient. I stressed the importance of the patient taking his medication as directed (either prescribed or as the over the counter packaging recommends). I stressed the importance of the patient following up with his primary care provider and roll coating machine operator. I stressed the importance of the patient returning to the emergency department immediately if his symptoms were to worsen or if he were to develop any dizziness, shortness of breath, difficulty breathing, chest pain, blurry vision, loss of vision, nausea, vomiting, abdominal pain, fever, chills, back pain, or any other complaints. Patient verbalized agreement and understanding with this treatment plan and discharge. Differential Diagnosis Differential Diagnoses: The differential diagnosis associated with the presentation includes Bradycardia Bradycardic atrial fib Admission/Observation Consideration of admission/observation: Escalation of care including admission/observation considered Patient would have been admitted to the hospital had his work up had any findings where hospital admission was appropriate and his clinical presentation warranted hospital admission. Consult Healthcare Provider Management of the patient was discussed with: Lifestyle Consultant (spoke to Dr. Rajan as noted in the MDM Rationale portion of this note. ) Lab Data [facility] Lab Attestation statement: I reviewed the patient's lab results. My interpretation of these results are in the MDM Rationale portion of this note. 12/04/24 15:37 12/04/24 15:37 Labs: Lab Results 12/04/24 12/04/24 Range/Units 15:37 17:12 WBC 5.7 (4.8-10.8) X10*3/uL RBC 4.38 L (4.60-5.80) X10*6/uL Hgb 13.9 L (14.0-18.0) g/dl Hct 40.0 L (42.0-52.0) % MCV 91.3 (80.0-98.0) fL MCH 31.7 (27.0-33.0) pg MCHC 34.8 (31.0-36.0) g/dl RDW 13.6 (11.0-16.0) % Plt Count 195 (160-400) X10*3/uL MPV 11.2 (9.4-12.4) fL Immature Gran % (Auto) 0.2 (0.0-0.4) % Neut % (Auto) 57.1 (45-73) % Lymph % (Auto) 28.9 (20-40) % [place] % (Auto) 10.4 (2-11) % Eos % (Auto) 2.3 (0-4) % Baso % (Auto) 1.1 (0-2) % Lymph # (Auto) 1.6 (1.2-4.9) X10*3/uL [place] # (Auto) 0.6 (0.1-1.2) X10*3/uL Eos # (Auto) 0.1 (0.0-0.4) X10*3/uL Baso # (Auto) 0.1 (0.0-0.2) X10*3/uL Abs Immat Gran (auto) 0.01 (0.00-0.03) X10*3/uL Absolute Neuts (auto) 3.3 (2.0-8.3) x10*3/uL Absolute Nucleated RBC 0.000 (0.0-0.012) X10*3/uL Nucleated RBC % (auto) 0.0 (0.0-0.2) /100WBC PT 47.8 H (10.9-12.4) SEC INR 4.1 H (0.9-1.1) Sodium 142 (135-145) mmol/L Potassium 4.1 (3.3-5.1) mmol/L Chloride 110 H (96-108) mmol/L Carbon Dioxide 27 (22-29) mmol/L Anion Gap 9 L (12-20) BUN 8 L (9-16) mg/dL Creatinine 1.16 (0.5-1.4) mg/dL Estim Creat Clear Calc 39.9 Estimated GFR > 60 Random Glucose 79 (60-115) mg/dL Calcium 8.8 (8.4-10.2) mg/dL Magnesium 2.1 (1.6-2.6) mg/dL Total Bilirubin 1.6 H (0.0-1.0) mg/dL AST 53 H (5-37) U/L ALT 48 H (0-40) U/L Alkaline Phosphatase 71 (39-117) U/L Troponin I High Sens 17.1 15.6 (<3.5-35.0) ng/L Total Protein 7.1 (6.5-8.0) g/dL Albumin 3.8 (3.5-5.0) g/dL Independent Interpretation I performed an independent interpretation of an: EKG Interpretation: I independently interpreted this EKG and am in agreement with the below findings: Vent. Rate: 44 BPM Atrial Rate: 44 BPM P-R Int: 240 ms QRS Dur: 140 ms QT Int: 514 ms P-R-T Axes: 50 -47 -9 degrees QTcB Int: 439 ms Marked sinus bradycardia with marked sinus arrhythmia with 1st degree A-V block Right bundle branch block Left anterior fascicular block Bifascicular block Minimal voltage criteria for LVH, may be normal variant (R in aVL) No previous ECGs available DD/ 1515 Discharge Plan Discharge Clinical Impression: Bradycardia Patient Disposition: Home, Self-Care Instructions: Bradycardia (ED) Additional Instructions: Your INR today was slightly elevated at 4.1 - I would not suggest any medication adjustments at this time but you should follow up with the coagulation clinic about this. Your heart rate was low today however, this is chronic for you and your roll coating machine operator is comfortable with me discharging you home with this. Follow up with your primary care provider and your roll coating machine operator. Return to the emergency department immediately if your symptoms worsen or if you develop any numbness, tingling, dizziness, shortness of breath, difficulty breathing, chest pain, blurry vision, loss of vision, nausea, vomiting, abdominal pain, fever, chills, back pain, or any other complaints. Please see the information below about our Patient Portal. If you are not yet enrolled in the [facility] Patient Portal, you will receive an enrollment email invitation following your visit to any [facility] setting. You may also self-enroll in the Patient Portal by visiting our website: [email or web address] The following information is required to access the Patient Portal: - Your [facility] Medical Record Number - Your personal home email address (must match what is in your electronic medical record, Registration staff can assist with this) - Name - Date of Capabilities of the Patient Portal: - Message some providers - View upcoming appointments - Access your health summary, medical history, and visit history - View current conditions and allergies - View procedure and lab results - View your medications, including guidelines, side effects, and precautions - Complete pre-appointment questionnaires requested by your provider - Ready summary reports of your office visits and procedures To access the Patient Portal Mobile Puma, follow these directions: - Search [employer] in the Puma Store or [employer] Store - Download the Puma - Search for [facility] - Enter your login/password Prescriptions: No Action amlodipine 5 mg tablet 5 mg PO DAILY Qty: 90 3RF aspirin 81 mg tablet,delayed release (DR/EC) 81 mg PO DAILY Qty: 90 0RF warfarin 5 mg tablet 5 mg PO DAILY Referrals: [facility] [Provider Group] Francisca Juarez DO [Primary Care Provider] - Print Language: Arabic
[2024-12-04 15:41] LABS: MANUAL DIFF FLAG NO
[2024-12-04 15:46] LABS: Basophils Absolute Auto 0.1 X10*3/uL (0.0-0.2); Basophils Percent Auto 1.1 % (0-2); Eosinophils Absolute Auto 0.1 X10*3/uL (0.0-0.4); Eosinophils Percent Auto 2.3 % (0-4); Hemoglobin 13.9 g/dl (14.0-18.0); Imm Gran Abs Auto 0.01 X10*3/uL (0.00-0.03); Imm Gran Pct Auto 0.2 % (0.0-0.4); Lymphocytes Absolute Auto 1.6 X10*3/uL (1.2-4.9); Lymphocytes Percent Auto 28.9 % (20-40); Mean Corpuscular HGB Conc 34.8 g/dl (31.0-36.0); Mean Corpuscular Hemoglobin 31.7 pg (27.0-33.0); Mean Corpuscular Volume 91.3 fL (80.0-98.0); Mean Platelet Volume 11.2 fL (9.4-12.4); Monocytes Absolute Auto 0.6 X10*3/uL (0.1-1.2); Monocytes Percent Auto 10.4 % (2-11); Neutrophils Absolute Auto 3.3 x10*3/uL (2.0-8.3); Neutrophils Percent Auto 57.1 % (45-73); Platelet Count 195 X10*3/uL (160-400); Red Blood Count 4.38 X10*6/uL (4.60-5.80); Red Cell Distribution Width 13.6 % (11.0-16.0); White Blood Count 5.7 X10*3/uL (4.8-10.8)
[2024-12-04 16:07] LABS: Alanine Aminotransferase 48 U/L (0-40); Albumin Level 3.8 g/dL (3.5-5.0); Anion Gap 9 (12-20); Aspartate Amino Transferase 53 U/L (5-37); Bilirubin Total 1.6 mg/dL (0.0-1.0); Blood Urea Nitrogen 8 mg/dL (9-16); Calcium 8.8 mg/dL (8.4-10.2); Carbon Dioxide 27 mmol/L (22-29); Chloride 110 mmol/L (96-108); Creatinine Clr Calc Pharmacy 39.9; Estimated Glomerular Filt Rate > 60; Glucose Random 79 mg/dL (60-115); Magnesium 2.1 mg/dL (1.6-2.6); Potassium 4.1 mmol/L (3.3-5.1); Sodium 142 mmol/L (135-145); Total Protein 7.1 g/dL (6.5-8.0); Troponin-I High Sensitivity 17.1 ng/L (<3.5-35.0)
[2024-12-04 16:15] LABS: Alkaline Phosphatase 71 U/L (39-117)
--- NOTE | 2024-12-04 16:49 | PC.NURSE ---
PACER PADS IN PLACE, HR IN THE 30-40'S
[2024-12-04 16:57] VITALS: BP 133/70; PULSE 42; RESP 16; O2SAT 98
[2024-12-04 17:27] LABS: INTERNATIONAL NORM RATIO 4.1 (0.9-1.1); Prothrombin Time 47.8 SEC (10.9-12.4)
[2024-12-04 17:41] LABS: Troponin-I High Sensitivity 15.6 ng/L (<3.5-35.0)
[2024-12-04 18:14] VITALS: BP 131/57; PULSE 46; RESP 14; TEMP 36.8; O2SAT 96
[2024-12-04 18:34] VITALS: BP 131/57; PULSE 46; RESP 14; TEMP 36.8; O2SAT 96
== END 2024-12-04 19:14 | disposition home or self-care (01) ==
PROVIDERS: Physician Assistant Medical; Registered Nurse Emergency; Emergency Provider Emergency Medicine; PCP Family Medicine
DX: R07.89 Other chest pain (principal); I49.9 Cardiac arrhythmia, unspecified; R00.1 Bradycardia, unspecified; Z79.899 Other long term (current) drug therapy
CPT/HCPCS: 36415; 80053; 83735; 84484; 85025; 85610; 93005; 99284; 99285

== ENCOUNTER → 2024-12-04 15:15 | Outpatient (BNV) | payer MEDICARE, SELFPAY | PROVIDERS: Emergency Provider Emergency Medicine; PCP Family Medicine; Visit Provider Internal Medicine | DX: R00.1 Bradycardia, unspecified (principal); R94.31 Abnormal electrocardiogram [ECG] [EKG]; I45.10 Unspecified right bundle-branch block | CPT/HCPCS: 93010 ==

== ENCOUNTER 2025-07-26 09:45 | Outpatient (AMB) | payer MEDICARE, SELFPAY ==
[2025-07-26 09:54] VITALS: BP 160/68; PULSE 41; O2SAT 98; BMI 27.6
--- NOTE | 2025-07-26 09:54 | MHC.OFFVIS ---
Vital Signs 07/26/25 09:54 Height 5 ft Weight 141 lb 1.533 oz BMI 27.6 BP 160/68 H Blood Pressure Location Lt brachial Position Sitting Pulse 41 L Pulse Source Pulse Oximeter Pulse Oximetry (%) 98 Oxygen Delivery Method Room Air Intake Visit Reasons: elbert Intake Note: pt is here for follow up and states he is feeling good., not using cpap right now. Cleaner And Presser Required: No Cleaner And Presser Services: Cleaner And Presser Offered & Declined Allergies No Known Allergies Allergy (Verified 07/26/25 10:44) Medication List - Last Reconciled 07/26/25 by Lyric Silverio MD amlodipine 5 mg PO DAILY aspirin 81 mg PO DAILY warfarin 5 mg PO DAILY Do you need a note to return to daycare/school/sports/work: No HPI HPI elbert: Details: STEVEN EVERETT , 80 YEARS OLD GENTLEMAN, VERY PLEASANT, OF NORMAL WEIGHT, WAS DIAGNOSED TO HAVE OBSTRUCTIVE SLEEP APNEA BACK IN JULY 2024. HE HAD MODERATELY SEVERE OBSTRUCTIVE SLEEP APNEA, AND BECAUSE HE ALSO HAS PERSISTENT ATRIAL FIBRILLATION, HE WAS ORDERED IS CPAP DEVICE, WHICH HE TRIED FOR A FEW NIGHTS AND GAVE UP AND SAID HE JUST CAN NOT USE THE CPAP. HE WAS NOT ABLE TO SLEEP WITH THE CPAP AT ALL. SO HE REALLY DID NOT USE IT. HE WENT TO HIS [place], WHERE HE SPENT MOST OF THE TIME UP UNTIL RECENTLY THAT HE HAS RETURNED BACK. HE IS NOW LIVING INDEPENDENTLY IN HIS OWN APARTMENT., VISITED BY HIS FAMILY MEMBERS MAINLY BY HIS DAUGHTER WHO IS AN RN. HE CLAIMS THAT HE SLEEPS GOOD WITHOUT FREQUENT AWAKENINGS. BECAUSE HE SLEEPS BY HIMSELF HE IS NOT AWARE OF ANY SNORING. HE REMAINS AWAKE ALERT AND REFRESHED DURING THE DAYTIME. HE HAS NO CHRONIC PULMONARY ISSUES. NEED LESS TO SAY THAT HE IS SOMEWHAT FORGETFUL BUT VERY PLEASANT DURING CONVERSATION. HIS ATRIAL FIBRILLATION REMAINS WELL CONTROLLED AND HE IS ON ANTICOAGULATION WITH WARFARIN. [facility] Medical History ELBERT (obstructive sleep apnea) Persistent atrial fibrillation Rheumatic tricuspid regurgitation Sinus bradycardia Ascending aorta dilatation Surgical History Status post mechanical aortic valve replacement History of photovaporization of prostate (~11/13/19) History of aortic valve replacement (~1990) Family History Father No problems noted. Mother Cancer Social History Alcohol intake: never Patient Tobacco Use Status: Former Tobacco user Review of Systems Const All systems reviewed & are unremarkable except as noted in HPI and below Eyes Reports no additional complaints ENT Reports no additional complaints, Denies nasal congestion and Denies nasal discharge Card Denies chest pain at rest, Reports irregular heart rhythm, Denies leg ulcers and Denies leg edema Resp Reports as per HPI GI Reports no additional complaints Reports no additional complaints Musc Reports no additional complaints Skin/Breast Reports system reviewed and no additional complaints, except as documented Neuro Reports no additional complaints Psych Reports no additional complaints Endo Reports no additional complaints Isaias/Lymph Reports no additional complaints Physical Exam Vital Signs: Last Vital Signs Pulse 41 L 07/26/25 09:54 BP 160/68 H 07/26/25 09:54 Pulse Ox 98 07/26/25 09:54 Oxygen Delivery Method Room Air 07/26/25 09:54 BMI result Body Mass Index 27.6 Const Other: He is of normal weight, healthy looking, had a good conversation. General: healthy appearing, comfortable, no acute distress, alert and awake Orientation/consciousness: patient oriented x3 HEENT Head: Yes normal to inspection General nose exam: No nasal polyps present and No nasal discharge present Face and sinus: Yes sinuses nontender Mouth: oropharynx normal Teeth and gingiva: other (He does have mild RETROGNATHIA of the lower jaw) Throat: Yes posterior oropharynx normal Eyes General: appearance normal, both eyes and all related structures Neck Neck: Yes normal visual inspection, Yes no lymphadenopathy, Yes trachea midline and Yes no JVD Thyroid: Thyroid normal Chest Chest palpation & inspection: abnormal inspection of the chest (There is a midline/mid sternal surgical scar well healed), normal palpation of entire chest wall and no tenderness Resp Effort & Inspection: normal respiratory effort and able to speak in complete sentences Auscultation: no crackles and no wheezes Cardio Palpation: normal PMI Rate: regular rate Rhythm: regular rhythm Heart sounds: no gallops and Murmur heart sound present (Metallic valve sounds at the aortic area radiating along lt. sternal border) Peripheral pulses: Peripheral pulses 2+ throughout GI Palpation (GI): Soft to palpation, nontender, No hepatosplenomegaly present and no masses Auscultation: normal bowel sounds Back/Spine/Pelvis Thoracic/Lumbar Spine: thoracic and lumbar spine normal to inspection Skin General skin exam: no rashes or lesions noted Neuro General: patient oriented x3 and no focal motor deficits Cranial nerves: Yes CN's II-XII intact bilaterally Extrem General: Yes normal to inspection, Yes no clubbing, cyanosis or edema and Yes no calf tenderness Psych Appearance: grossly normal and well kempt Speech and movement: Normal speech and movement present Assessment & Plan Assessment & Plan (1) ELBERT (obstructive sleep apnea): Comment: The sleep apnea in his case is predominantly positional, mostly in supine position. He does have history of loud snoring and also excessive daytime sleepiness. * HE WAS PRESCRIBED CPAP THERAPY BUT HE JUST COULD NOT TOLERATE, HE GAVE UP ON USING IT AND THE MACHINE WAS RETURNED. He say is he sleeps well, he gets about 6-7 hours of sleep every night .He tries to sleep in lateral position. Again he categorically say is that he is not going to use CPAP. His weight is fine, BMI 27.6. Code(s): G47.33 - Obstructive sleep apnea (adult) (pediatric) Category: Medical Plan: I stressed that he should make sure to sleep in lateral position, and avoid sleeping in supine position. In his case I do not think any other alternative mode of treatment is going to be practical. (2) Status post mechanical aortic valve replacement: Comment: Patient had aortic valve replacement back in 1989 s . He has done very well except for the onset of atrial fibrillation recently. Code(s): Z95.2 - Presence of prosthetic heart valve Category: Surgical Plan: He is being followed by cardiology service. (3) Persistent atrial fibrillation: Comment: Patient has paroxysmal or persistent atrial fibrillation. It is relatively controlled at this time. He remains on warfarin for anticoagulation Code(s): I48.19 - Other persistent atrial fibrillation Category: Medical Plan: Continue to follow-up with cardiology service . Coding Level of Care Code Est Pt Level 3 (27418) Diagnoses ELBERT (obstructive sleep apnea) G47.33 Status post mechanical aortic valve replacement Z95.2 Persistent atrial fibrillation I48.19
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
== END 2025-07-26 10:27 | disposition home or self-care (01) ==
LOC: HO.HPS 09:45
PROVIDERS: PCP Family Medicine; Visit Provider Internal Medicine
DX: G47.33 Obstructive sleep apnea (adult) (pediatric) (principal); Z95.2 Presence of prosthetic heart valve; I48.19 Other persistent atrial fibrillation
CPT/HCPCS: 99213

== ENCOUNTER → 2025-07-26 09:45 | Outpatient (BNVA) | payer MEDICARE, SELFPAY | PROVIDERS: PCP Family Medicine; Visit Provider Internal Medicine | DX: G47.33 Obstructive sleep apnea (adult) (pediatric) (principal); I48.91 Unspecified atrial fibrillation; Z95.2 Presence of prosthetic heart valve; Z78.9 Other specified health status | CPT/HCPCS: 99212 ==

== ENCOUNTER 2025-09-08 14:15 | Outpatient (AMB) | payer MEDICARE, SELFPAY ==
[2025-09-08 14:26] VITALS: BP 130/60; PULSE 47; O2SAT 97; BMI 26.7
--- NOTE | 2025-09-08 14:26 | MHC.OFFVIS ---
Vital Signs 09/08/25 14:26 Height 5 ft Weight 136 lb 10.986 oz BMI 26.7 BP 130/60 Blood Pressure Location Lt brachial Position Sitting Pulse 47 L Pulse Source Pulse Oximeter Pulse Oximetry (%) 97 Oxygen Delivery Method Room Air Intake Visit Reasons: Obstructive sleep apnea Intake Note: pt is here for follow up to discuss elbert [employer] Analysis Director Required: No Director Dental Services: Director Dental Services offered & declined Allergies No Known Allergies Allergy (Verified 09/08/25 15:57) Medication List - Last Reconciled 09/08/25 by Lyric Silverio MD amlodipine 5 mg PO DAILY aspirin 81 mg PO DAILY warfarin 5 mg PO DAILY Do you need a note to return to daycare/school/sports/work: No HPI HPI Obstructive sleep apnea: Details: THIS 80 YEARS OLD VERY PLEASANT GENTLEMAN, FROM [place], WHO HAS LIVED IN [facility] FOR MANY YEARS. AFTER HIS SNF HE SPENDS MORE TIME IN [place], BUT AT LEAST 6 MONTHS HERE IN [place]. HE HAS A LONGSTANDING HISTORY OF CARDIAC ISSUES. 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 HE HAD MECHANICAL AORTIC VALVE REPLACEMENT IN 1990 IN [facility]. FOR THE LAST FEW YEARS HE HAS HAD FREQUENT BOUTS OF SHORT-LIVED PALPITATIONS. HE IS DIAGNOSED TO HAVE PAROXYSMAL ATRIAL FIBRILLATION AND IS ON ANTICOAGULATION THERAPY, WITH ELIQUIS. HE IS ALSO ON AMLODIPINE 5 MG DAILY . HE DID HAVE HOME-BASED SLEEP STUDY ON 07/23/2024, SHOWING MODERATELY SEVERE OBSTRUCTIVE SLEEP APNEA. 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 HE WAS PROVIDED WITH A CPAP, BUT HE REMAINED TOTALLY NONCOMPLIANT. HE TRY TO USE THE CPAP DEVICE BUT SAT THE MASK WAS SUFFOCATING HIM. [place]CAUSE OF HIS NONCOMPLIANCE [place] [facility] [place] DEVICE. HE GOES FOR A FEW MONTHS AT A TIME TO [place] THE FAMILY MEMBERS OVER THERE HAVE NOTIFIED HIS FAMILY MEMBERS HERE IN [place] STATES THAT HE DOES SNORE A LOT AT NIGHT. HIS BROTHER AND HIS SON WHO HAVE LIVED WITH HIM OFF AND ON ALSO NOTE THAT HE DOES SNORE A LOT. THE PROBLEM IS THAT HE SLEEPS MOSTLY IN SUPINE POSITION AT NIGHT. HE ALSO CLAIMS THAT HIS CPAP MACHINE WAS TOO BULKY AND HE WANTS TO HAVE A SMALL COMPACT TYPE OF MACHINE. IT IS HARD TO UNDERSTAND WHAT HE MEANS BY THAT. I THINK HE JUST DOES NOT UNDERSTAND THE PROPER USE OF CPAP. HE COMES TODAY TO DISCUSS ABOUT THE NEXT UP. I TOLD HIM THAT IF HE CONTINUES TO HAVE THE SYMPTOMS THEN HE WILL HAVE TO GO BACK TO USING CPAP, BUT PER INSURANCE GUIDANCE HE NEED TO HAVE IN-LAB SLEEP STUDY BEFORE HE CAN GET A NEW CPAP DEVICE. HIS DAUGHTER IS AN RN AND UNDERSTAND ABOUT THIS ISSUE VERY WELL . [facility] Medical History (Updated 09/08/25 @ 16:49 by Lyric Silverio MD) Retrognathia ELBERT (obstructive sleep apnea) Persistent atrial fibrillation Rheumatic tricuspid regurgitation Sinus bradycardia Ascending aorta dilatation Surgical History Status post mechanical aortic valve replacement History of photovaporization of prostate (~11/13/19) History of aortic valve replacement (~1990) Family History Father No problems noted. Mother Cancer Social History Alcohol intake: never Patient Tobacco Use Status: Former Tobacco user Review of Systems Const All systems reviewed & are unremarkable except as noted in HPI and below Eyes Reports no additional complaints ENT Reports no additional complaints, Denies nasal congestion and Denies nasal discharge Card Denies chest pain at rest, Reports irregular heart rhythm, Denies leg ulcers and Denies leg edema Resp Reports as per HPI GI Reports no additional complaints Reports no additional complaints Musc Reports no additional complaints Skin/Breast Reports system reviewed and no additional complaints, except as documented Neuro Reports no additional complaints Psych Reports no additional complaints Endo Reports no additional complaints Isaias/Lymph Reports no additional complaints Physical Exam Vital Signs: Last Vital Signs Pulse 47 L 09/08/25 14:26 BP 130/60 09/08/25 14:26 Pulse Ox 97 09/08/25 14:26 Oxygen Delivery Method Room Air 09/08/25 14:26 BMI result Body Mass Index 26.7 Const Other: He is of normal weight, healthy looking, had a good conversation. General: healthy appearing, comfortable, no acute distress, alert and awake Orientation/consciousness: patient oriented x3 HEENT Head: Yes normal to inspection General nose exam: No nasal polyps present and No nasal discharge present Face and sinus: Yes sinuses nontender Mouth: oropharynx normal Teeth and gingiva: other (He does have mild RETROGNATHIA of the lower jaw) Throat: Yes posterior oropharynx normal Eyes General: appearance normal, both eyes and all related structures Neck Neck: Yes normal visual inspection, Yes no lymphadenopathy, Yes trachea midline and Yes no JVD Thyroid: Thyroid normal Chest Chest palpation & inspection: abnormal inspection of the chest (There is a midline/mid sternal surgical scar well healed), normal palpation of entire chest wall and no tenderness Resp Effort & Inspection: normal respiratory effort and able to speak in complete sentences Auscultation: no crackles and no wheezes Cardio Palpation: normal PMI Rate: regular rate Rhythm: regular rhythm Heart sounds: no gallops and Murmur heart sound present (Metallic valve sounds at the aortic area radiating along lt. sternal border) Peripheral pulses: Peripheral pulses 2+ throughout GI Palpation (GI): Soft to palpation, nontender, No hepatosplenomegaly present and no masses Auscultation: normal bowel sounds Back/Spine/Pelvis Thoracic/Lumbar Spine: thoracic and lumbar spine normal to inspection Skin General skin exam: no rashes or lesions noted Neuro General: patient oriented x3 and no focal motor deficits Cranial nerves: Yes CN's II-XII intact bilaterally Extrem General: Yes normal to inspection, Yes no clubbing, cyanosis or edema and Yes no calf tenderness Psych Appearance: grossly normal and well kempt Speech and movement: Normal speech and movement present Assessment & Plan Assessment & Plan (1) ELBERT (obstructive sleep apnea): Comment: The sleep apnea in his case is predominantly positional, mostly in supine position and also contributed by mild retrognathia of the lower jaw. He does have history of loud snoring and also excessive daytime sleepiness. * HE WAS PRESCRIBED CPAP THERAPY BUT HE JUST COULD NOT TOLERATE, HE GAVE UP USING IT AND THE MACHINE WAS FINALLY RETURNED. Today he comes back and say is that he does need to use the CPAP, has without using CPAP he does not sleep good. The family members do report that he has heavy snoring. He also tends to sleep in supine position. Code(s): G47.33 - Obstructive sleep apnea (adult) (pediatric) Category: Medical Plan: To request a new CPAP device for him, we need to repeat sleep study. And because of history of noncompliance this time we have to do polysomnogram study in the sleep lab, for possible SPLIT NIGHT STUDY. Patient is agreeable to have the sleep study in the sleep lab. I have requested for the study. He say is that he plans to go to [place] in mid September, and hopefully we can get this study done before that. (2) Retrognathia: Comment: He is of a thin build and the reason he has obstructive sleep apnea is partly due to retrognathia of the lower jaw and partly because he sleeps in supine position. Code(s): M26.19 - Other specified anomalies of jaw-cranial base relationship Category: Medical Plan: I talked to him about avoiding sleeping in supine position but he say is he just can not help . (3) Persistent atrial fibrillation: Comment: Patient has paroxysmal or persistent atrial fibrillation. It is relatively controlled at this time. He remains on warfarin for anticoagulation Code(s): I48.19 - Other persistent atrial fibrillation Category: Medical Plan: This is the main reason why he should be on CPAP therapy to overcome the sleep apnea. (4) Status post mechanical aortic valve replacement: Comment: Patient had aortic valve replacement back in 1989 s . He has done very well except for the onset of atrial fibrillation recently. Code(s): Z95.2 - Presence of prosthetic heart valve Category: Surgical Plan: I explained to him that this is another reason that he should be on CPAP therapy Orders: Orders RT PSG in-lab sleep study Today G47.33 - Obstructive sleep apnea (adult) (pediatric), I48.19 - Other persistent atrial fibrillation, Z95.2 - Presence of prosthetic heart valve Coding Level of Care Code Est Pt Level 3 (34828) Diagnoses ELBERT (obstructive sleep apnea) G47.33 Retrognathia M26.19 Persistent atrial fibrillation I48.19 Status post mechanical aortic valve replacement Z95.2
--- OUTSIDE RECORDS SUMMARY | 2025-09-08 19:05 | XMS_ITS | Data Portability ---
Author Organization [facility] Address [address] [place] [address] Care Team Providers Care Staff Veterinarian Name Role Phone HERB WALLACE Referring Provider HERB WALLACE Referring Provider HERB WALLACE Primary Care Provider Assessment Encounter Date Assessment Date Assessment LastModified [...] future. He would like to move toward group home, an assisted living facility with experience with individuals with cognitive dysfunction. He has only in the last few days began investigating that direction by using [facility]. I suggest that the Elder [facility] in his community [facility] will have information about places that provide [...] classification on that testing of cognitive impairment. Palestinian is his second language so results on [...] help for people with memory problems. The [facility] has a senior center, funded by [employer], where there are experienced people that will be able to give you the names of places in the area that have these services. Then, you can go and investigate those organizations to see if they are right for you. Here is address and phone number of the [facility]. If this is the central phone number, just ask to speak to someone at the senior center. [facility] Address: [address] [place] [id number] Hours: Open Closes 5PM Follow-up in 2 [...] record ed. [email or web address] [facility] [address], [place], [address], 05/09/2021 12:13:51 Result Notes None recorded. Procedures Surgical History Date Name Laterality Status Provider Name and Address Organization Details Recorded Time 05/15/2021 DATA REVIEW completed Jose Daniel Garber MD [address] [place] [address], [id number], Formerly [facility] 05/15/2021 12:55:35 Imaging Results None recorded. [...] Code Diagnosis IMO Codes Diagnosis Note [id number] Jose Daniel Garber MD [facility] [address] [place] [address] [place] [phone] 05/15/2021 12:39:38 05/15/2021 14:01:44 Alzheimer's disease [id number] G30.1 Mild neuro cognitive disorder [id number] G31.84 Health Concerns Section Related Observation LastModified by Organization Detai ls LastModified Time None Recorded Concern Status LastModified by Organization Details LastModified Time None Recorded Advance Directives Directive None Recorded Payers Insurance Date Sequence Insurance Name Policy Number Policy Hurd Covered Member ID Hurd Member ID Guarantor Name 05/23/2021 2 [place] [id number] Kelly Carter [id number] Kelly Cheney 05/08/2021 1 [place] [employer] Kelly Carter [id number] Kelly Cheney Notes Date Note Type [...] lost m ostly. 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 In addition, in the context of his [...] not never when he talks in his [place] language, colloquial Syrian Romanian. 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 He sometimes [...] daughter has mentioned. Jose Daniel Garber MD [address] [place] [address] [place], [phone], [facility] 05/15/2021 13:30:51
== END 2025-09-08 14:54 | disposition home or self-care (01) ==
PROVIDERS: PCP Family Medicine; Visit Provider Internal Medicine
DX: G47.33 Obstructive sleep apnea (adult) (pediatric) (principal); M26.19 Other specified anomalies of jaw-cranial base relationship; I48.19 Other persistent atrial fibrillation; Z95.2 Presence of prosthetic heart valve
CPT/HCPCS: 99213

== ENCOUNTER → 2025-09-08 14:15 | Outpatient (BNVA) | payer MEDICARE, SELFPAY | PROVIDERS: PCP Family Medicine; Visit Provider Internal Medicine | DX: G47.33 Obstructive sleep apnea (adult) (pediatric) (principal); M26.19 Other specified anomalies of jaw-cranial base relationship; I48.19 Other persistent atrial fibrillation; Z95.2 Presence of prosthetic heart valve | CPT/HCPCS: 99212 ==

== ENCOUNTER 2025-09-15 10:09 | Outpatient (AMB) | payer MEDICARE, SELFPAY ==
--- OUTSIDE RECORDS SUMMARY | 2025-09-11 18:36 | XMS_ITS | Encounter Summary ---
Author Organization [facility] Address [address] [place] [phone] Phone Care Team Providers Care Lead Instructor/Flight Attendant Name Role Phone Nehemias Ordoñez MD Unavailable [phone] Francisca Juarez DO Primary Care Provider Reason for Visit * Reason Comments Dizziness Fatigue Encounter Details Date Type Department Care Team (Late st Contact Info) Description 09/11/2025 6:36 PM EST - 09/11/2025 10:29 PM EST Emergency [facility] [address] [place] [address] Rigoberto Craft MD [address] [place] [address] [email or web address] Discharge Disposition: Home or Self Care Social History Tobacco Use Types Packs/Day Years Used Date Smoking Tobacco: Former Cigarettes 1 9 0 11/13/1971 - 11/13/1979 Smokeless Tobacco: Never Alcohol Use Standard Drinks/Week Comments Yes 1 (1 standard drink = 0.6 oz pur e alcohol) Education Answer Date Recorded Are you interested in more education? Not on nelson e 01/18/2023 Are you concerned about learning? Not on file 01/18/2023 No 01/18/2023 No 01/18/2023 Digital Access Answer Date Recorded No 02/18/2023 No 02/18/2023 Reliable internet access at home? Not on file 02/18/2023 Device with a working camera? Not on file Intimate Partner Violence Answer Date R ecorded Are you denied basic needs s uch as food, clothing, or medical care? No 09/11/2025 In the past 12 months have y ou been in a relationship with a person who hurts, threatens, or tries to control you? No 09/11/2025 Are you denied basic needs s uch as food, clothing, or medical care? No 09/11/2025 In the past 12 months have y ou been in a relationship with a person who hurts, threatens, or tries to control you? No 09/11/2025 Sex and Gender Information Value Date Recorded Sex Assigned at Male 07/16/2020 2:17 AM EDT Legal Sex Male 10:09 PM EDT Gender Identity Male 07/16/2020 2:17 AM EDT Sexual Orientation Not on file documented as of this encounter Last Filed Vital Signs Vital Sign Reading Time Taken Comments Blood Pressure 157/61 09/11/2025 10:00 PM EST Pulse 41 09/11/2025 10:00 PM EST Temperature 36.7 C (98.1 F) 09/11/2025 10:00 PM EST Respiratory Rate 15 09/11/2025 10:00 PM EST Oxygen Saturation 100% 09/11/2025 10:00 PM EST Inhaled Oxygen Concentration - - Weight 59.9 kg (132 lb) 09/11/2025 5:48 PM EST Height 165.1 cm (5' 5 ) 09/11/2025 5:48 PM EST Body Mass Index 21.97 09/11/2025 5:48 PM EST documented in this encounter Functional Status * Mendoza Fall Risk Score Descriptions Question Answer Date of Assessment Author Select based on above score Moderate risk: 25 - 45 09/11/2025 5:50 PM EST Jignesh Reyes RN * Mendoza Fall Risk Question Answer Date of Assessment Author History of Falling 0 09/11/2025 5:50 PM EST Jignesh Reyes RN Secondary Diagnosis 15 09/11/2025 5:50 PM ES T Jignesh Reyes RN Ambulatory Aids 0 09/11/2025 5:50 PM EST We Jignesh akins RN Intravenous Therapy/Heparin/ Saline Lock 0 09/11/2025 5:50 PM Jignesh Rodgers RN Gait/Transferring 10 09/11/2025 5:50 PM Jignesh Rodgers RN Mental Status 0 09/11/2025 5:50 PM Jignesh Alaniz RN Mendoza Fall Risk Score 25 09/11/2025 5:50 PM Jignesh Rodgers RN * Calculated C-SSRS Risk Score (Lifetime/Recent) Answer Date of Assessment Author No Risk Indicated 09/11/2025 5:49 PM Jignesh Rodgers RN * [place] Suicide Severity Rating Scale (Screener/Recent Self-Report) Question Answer Date of Assessment Author 1. Wish to be (Past 1 Month) No 025 5:49 PM Jignesh Rodgers RN 2. Non-Specific Active Suici mignon Thoughts (Past 1 Month) No 09/11/2025 5:49 PM Jignesh Rodgers RN 6. Suicidal Behavior (Lifetime) No 5:49 PM Jignesh Rodgers RN documented as of this encounter Discharge Instructions * Attachments The following attachments cannot be sent through Care Everywhere. * Lightheadedness or Faintness (Macanese) documented in this encounter Medications at Time of Discharge acetaminophen (TYLENOL) 325 mg tablet Take 2 tablets (650 mg total) by mouth every 6 (six) hours as needed for mild pain or fever. 0 11/14/2019 amLODIPine (NORVASC) 2.5 MG tablet amlodipine 2.5 mg tablet TAKE 1 TABLET BY MOUTH EVERY DAY amLODIPine (NORVASC) 5 MG tablet amlodipine 5 mg tablet TAKE 1 TABLET BY MOUTH EVERY DAY aspirin 81 MG EC tablet aspirin 81 mg tablet,delayed release TAKE 1 TABLET BY MOUTH EVERY DAY blood sugar diagnostic (FREESTYLE LITE) Strp strips FreeStyle Lite Strips USE 1 STRIP ONCE A DAY (E11.9, KS) blood-glucose meter (FREESTYLE LITE METER) kit FreeStyle Lite Meter kit USE DIRECTED TO CHECK BLOOD SUGARS ONCE A DAY (E11.9) docusate sodium (COLACE) 100 MG capsule Take 1 capsule (100 mg total) by mouth 2 (two) times a day. 11/14/2019 escitalopram oxalate (LEXAPRO) 5 MG tablet escitalopram 5 mg tablet gabapentin (NEURONTIN) 300 MG capsule gabapentin 300 mg capsule TAKE 1 CAPSULE BY MOUTH THREE TIMES A DAY FOR 28 DAYS hydrocortisone 2.5 % cream hydrocortisone 2.5 % topical cream with perineal applicator APPLY THIN COAT TO AFFECTED AREA TWICE A DAY ketorolac (ACULAR) 0.5 % ophthalmic solution ketorolac 0.5 % eye drops INSTILL 1 DROP INTO BOTH EYES 4 TIMES A DAY FOR 2 WEEKS THEN STOP oxybutynin (DITROPAN XL) 10 MG 24 hr tablet Take 1 tablet (10 mg total) by mouth daily. 30 tablet 3 12/21/2019 oxyCODONE 5 MG immediate release tablet Take 1 tablet (5 mg total) by mouth every 4 (four) hours as needed for moderate pain. Can partial fill 16 tablet 07/16/2020 polyethylene glycol (MIRALAX) 17 gram packet Take 17 g by mouth daily. Take daily as needed if you have not had a bowel movement 11/14/2019 prednisoLONE acetate (PRED FORTE) 1 % ophthalmic suspension prednisolone acetate 1 % eye drops,suspension PUT 1 DROP TO BOTH EYES 4 TIMES DAILY FOR 2 WEEKS senna (SENOKOT) 8.6 mg tablet Take 2 tablets by mouth nightly at bedtime. 11/14/2019 sildenafil (VIAGRA) 100 mg tablet Take 100 mg by mouth daily as needed for erectile dysfunction. tadalafiL (CIALIS) 5 MG tablet Take 1 tablet (5 mg total) by mouth daily. 30 tablet 11 06/30/2020 tamsulosin (FLOMAX) 0.4 mg Cap Take 0.4 mg by mouth daily. tobramycin-dexa methasone (TOBRADEX) ophthalmic suspension tobramycin 0.3 %-dexamethasone 0.1 % eye drops,suspension INSTILL ONE DROP INTO BOTH EYES FOUR TIMES DAILY FOR ONE WEEK valACYclovir (VALTREX) 1000 MG tablet valacyclovir 1 gram tablet TAKE 1 TABLET BY MOUTH 3 TIMES A DAY FOR 7 DAYS warfarin (COUMADIN) 5 MG tablet Take 5 mg by mouth daily. warfarin (JANTOVEN) 1 MG tablet Jantoven 1 mg tablet documented as of this encounter Procedure Notes * Rigoberto Craft MD - 09/11/2025 10:12 PM ESTAssociated Order(s): Show. Procedure Show. Date/Time: 09/11/2025 10:12 PM Performed by: Rigoberto Craft MD Authorized by: Rigoberto Craft MD Exam Type: Cardiac Transthoracic Echocardiogram and Thoracic Cardiac Transthoracic Echocardiogram Exam Findings & Impression: Indications: patient with syncope Views: parasternal long and parasternal short Pericardial Effusion: the pericardial space was visualized and was negative for a pericardial effusion LV Function: the LV was not well visualized RV Size: the heart was visualized with a normal R ventricle size Other findings: No pericardial effusion, possibly mildly depressed EF Overall Impression: indeterminate Thoracic Exam Findings & Impression: Other Indications: Lightheadedness Right Lung B-Lines: the R chest was visualized and no or few B lines were seen Left Lung B-Lines: the L chest was visualized and no or few B lines were seen Overall Impression: negative Images: Images Saved: Yes Accession Number: [id number] documented in this encounter ED Notes * Jignesh Reyes RN - 09/11/2025 5:47 PM EST Patient reports over last week has had multiple episodes of acute dizziness and near syncope. Patient also reports feeling unusually weak today. * Rigoberto Craft MD - 09/11/2025 5:31 PM EST Images from the original note were not included. History of Present Illness The patient, Kelly Cheney,is a 80 y.o. male with past medical history signficant for A fib, AAA, status post metal aortic valve on Coumadin with target 2.5-3.5 who presents to the emergency department for episodes of lightheadedness over the past couple months. Reports that all the episodes have occurred while he is standing. Episodes never happen at rest or while sitting. No change in shortness of breath, chest pain. No leg swelling. Today he was talking with his daughter who is a nurse and describing his episodes of lightheadedness and near syncope. She reported that his voice sounded weak and she took his blood pressure which was high. She was concerned about his perfusion and encouraged him to go to the hospital for evaluation. History is provided by the patient. ROS Pertinent ROS documented in HPI. Past Medical History Past Medical History: Diagnosis Date A-fib Abdominal aortic aneurysm Acid reflux food triggered Anticoagulated on Coumadin Arthritis BPH (benign prostatic hyperplasia) H/O urinary retention 1984 after general anesthesia [place] (hard of hearing) Impotence Mitral valve disorder Goal INR 2.5-3.5 Past Surgical History Past Surgical History: Procedure Laterality Date ACHILLES TENDON REPAIR Left 2003 AORTIC VALVE REPLACEMENT [address] [facility] CATARACT EXTRACTION Left 2019 COLONOSCOPY COLONOSCOPY N/A 06/15/2019 Performed by Davis Ny MD at [facility] ENDOSCOPY EAR SURGERY x4; bilateral tympanic membrane and ossicle repair ESOPHAGOGASTRODUODENOSCOPY N/A 11/19/2019 Performed by Christian Louie MD at [facility] INDIO 4 ENDOSCOPY EXTENSOR TENDON OF FOREARM / WRIST REPAIR Left PHOTO SELECTIVE VAPORIZATION PROSTATE WITH MORCELLATOR N/A 11/13/2019 Performed by Kalpesh Licona MD at [facility] OR Home Medications Prior to Admission medications Medication Sig acetaminophen (TYLENOL) 325 mg tablet 650 mg, Oral, Every 6 hours PRN amLODIPine (NORVASC) 2.5 MG tablet amlodipine 2.5 mg tablet TAKE 1 TABLET BY MOUTH EVERY DAY amLODIPine (NORVASC) 5 MG tablet amlodipine 5 mg tablet TAKE 1 TABLET BY MOUTH EVERY DAY aspirin 81 MG EC tablet aspirin 81 mg tablet,delayed release TAKE 1 TABLET BY MOUTH EVERY DAY blood sugar diagnostic (FREESTYLE LITE) Strp strips FreeStyle Lite Strips USE 1 STRIP ONCE A DAY (E11.9, [place]) blood-glucose meter (FREESTYLE LITE METER) kit FreeStyle Lite Meter kit USE DIRECTED TO CHECK BLOOD SUGARS ONCE A DAY (E11.9) docusate sodium (COLACE) 100 MG capsule 100 mg, Oral, 2 times daily Patient not taking: Reported on 07/26/2021 escitalopram oxalate (LEXAPRO) 5 MG tablet escitalopram 5 mg tablet gabapentin (NEURONTIN) 300 MG capsule gabapentin 300 mg capsule TAKE 1 CAPSULE BY MOUTH THREE TIMES A DAY FOR 28 DAYS hydrocortisone 2.5 % cream hydrocortisone 2.5 % topical cream with perineal applicator APPLY THIN COAT TO AFFECTED AREA TWICE A DAY ketorolac (ACULAR) 0.5 % ophthalmic solution ketorolac 0.5 % eye drops INSTILL 1 DROP INTO BOTH EYES 4 TIMES A DAY FOR 2 WEEKS THEN STOP oxybutynin (DITROPAN XL) 10 MG 24 hr tablet 10 mg, Oral, Daily Patient not taking: Reported on 07/26/2021 oxyCODONE 5 MG immediate release tablet 5 mg, Oral, Every 4 hours PRN, Can partial fill Patient not taking: Reported on 07/26/2021 polyethylene glycol (MIRALAX) 17 gram packet 17 g, Oral, Daily, Take daily as needed if you have not had a bowel movement Patient not taking: Reported on 07/26/2021 prednisoLONE acetate (PRED FORTE) 1 % ophthalmic suspension prednisolone acetate 1 % eye drops,suspension PUT 1 DROP TO BOTH EYES 4 TIMES DAILY FOR 2 WEEKS senna (SENOKOT) 8.6 mg tablet 2 tablets, Oral, Nightly Patient not taking: Reported on 07/26/2021 sildenafil (VIAGRA) 100 mg tablet 100 mg, Daily as needed Patient not taking: Reported on 07/26/2021 tadalafiL (CIALIS) 5 MG tablet 5 mg, Oral, Daily Patient not taking: Reported on 07/26/2021 tamsulosin (FLOMAX) 0.4 mg Cap 0.4 mg, Oral, Daily tobramycin-dexamethasone (TOBRADEX) ophthalmic suspension tobramycin 0.3 %- dexamethasone 0.1 % eye drops,suspension INSTILL ONE DROP INTO BOTH EYES FOUR TIMES DAILY FOR ONE WEEK valACYclovir (VALTREX) 1000 MG tablet valacyclovir 1 gram tablet TAKE 1 TABLET BY MOUTH 3 TIMES A DAY FOR 7 DAYS warfarin (COUMADIN) 5 MG tablet 5 mg, Oral, Daily warfarin (JANTOVEN) 1 MG tablet Jantoven 1 mg tablet Allergies No Known Allergies Social and Family History Social History Tobacco Use Smoking status: Former Current packs/day: 0.00 Average packs/day: 1 pack/day for 9.0 years (9.0 ttl pk-yrs) Types: Cigarettes Start date: 11/13/1971 Quit date: 11/13/1979 Years since quittin.8 Smokeless tobacco: Never Substance Use Topics Alcohol use: Yes Alcohol/week: 1.0 standard drink of alcohol Types: 1 Cans of beer per week Social History Substance and Sexual Activity Drug Use Never No family history on file. Physical Exam Vital Signs: BP (!) 158/67 Pulse (!) 40 Temp 36.5 ??C (97.7 ??F) (Temporal) Resp 17 Ht 165.1 cm (5' 5 ) Wt 59.9 kg (132 lb) SpO2 100% BMI 21.97 kg/m?? Physical Exam CONSTITUTIONAL: vitals reviewed, well-nourished & well developed, no acute distress EYES: normal lids, no conjunctival injection, no conjunctival pallor HEENT: atraumatic nose, mucosa moist, no exudates or erythema PULMONARY: normal effort, Speaking in full sentences, clear to auscultation bilaterally CARDIOVASCULAR: Regular bradycardia, symmetrical peripheral pulses in upper and lower extremities, no lower extremity edema, no calf asymmetry ABDOMEN: soft, nondistended, nontender MUSCULOSKELETAL: deferred NEUROLOGIC: Alert and oriented; fluent speech; normal concentration and comprehension, Pupils symmetrical and reactive to light; extra ocular movements intact; facial sensation intact; symmetrical facial movements; symmetrical hearing to finger rub; palate elevates symmetrical; normal phonation; normal shoulder shrug; tongue is midline, Normal sensation to light touch throughout, Full symmetricalstrength to proximal and distal muscle groups in upper and lower extremities, No pronator drift, Noataxia observed on [id number] and heel- yu/toe touch maneuvers SKIN: warm , dry PSYCHIATRIC: alert and oriented, normal mood and affect MDM & ED Course Briefly, 80 y.o. male who presents with a few episodes of lightheadedness and near syncope over thepast couple of months, always while standing. No recent medication changes. He has a standing knownsinus bradycardia in the range of 30s to 40s. [facility]. EKG @ 1754: Sinus rhythm at a rate of 37, left axis, wide TN and QRS interval(s), no ST elevations or depressions Impression: No acute ischemic changes noted; first degree av block, RBBB; similar to prior EKG 04/22/21 ASSESSMENT & PLAN Probable and/or high risk diagnostic considerations based on initial impression from the patient's history and exam: Lightheadedness; unlikely be related to his sinus bradycardia which is a chronic condition, no evidence of decompensated heart failure. He appears euvolemic without evidence of volume contraction. All the symptoms are triggered with orthostatic challenge but are intermittent. Orthostatic vital signs here are reassuring. External record review performed and is summarized as follows: Prior EKG I independently interpreted the labs -- Unremarkable CBC, chemistry, TSH. Serial troponins are flat. INR is below his target range of 2.5-3.5. I performed bedside ultrasound which showed no evidence of pericardial effusion, no B-lines to suggest volume overload, adequate EF. 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 No clear source for symptoms was found on detailed evaluation. I reviewed his medication list which has multiple medications he is not taking. Specifically, he is not taking tamsulosin or sildenafil. We discussed his INR level being subtherapeutic and he has a plan to increase his Coumadin dose from next couple of days. He has a INR machine at home to check his progress and will follow-up with his Coumadin clinic. 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 The patient was instructed to follow up primary care provider/cardiology . All questions were answered. CRITICAL CARE TIME: 0 (exclusive of procedures) Clinical Impressions as of 09/11/252200 Lightheadedness Disposition: Home Rigoberto Craft MD Portions of this note were dictated utilizing speech recognition software. Rigoberto Craft MD 09/11/252204 documented in this encounter Plan of Treatment Upcoming Encounters Date Type Department Care Team (Late st Contact Info) Description 02/07/2026 1:00 PM EDT Office Visit [facility] [address] [place] [address] Yadira Alegre, SHARON [address] [place] [phone] [email or web address] documented as of this encounter Procedures Procedure Name Priority Date/Time Associated Diagnosis Comments US BEDSIDE Routine 09/11/2025 8:56 PM EST TROPONIN STAT 09/11/2025 8:23 PM EST TSH WITH REFLEX STAT 09/11/2025 7:11 PM EST LFTS (HEPATIC PANEL) STAT 09/11/2025 7:11 PM EST PT-INR STAT 09/11/2025 7:11 PM EST MAGNESIUM STAT 09/11/2025 7:11 PM EST CBC AND DIFFERENTIAL STAT 09/11/2025 7:06 PM EST CBC AND DIFFERENTIAL STAT 09/11/2025 7:06 PM EST TROPONIN STAT 09/11/2025 7:06 PM EST BASIC METABOLIC PANEL (BMP) STAT 09/11/2025 7:06 PM EST ECG 12-LEAD STAT 09/11/2025 5:54 PM EST documented in this encounter Results * US BEDSIDE (09/11/2025 8:56 PM EST) Anatomical Region Laterality Modality Ultrasound Narrative 09/11/2025 8:56 PM EST Rigoberto Craft MD 09/11/2025 10:14 PM Show. Date/Time: 09/11/2025 10:12 PM Performed by: Rigoberto Craft MD Authorized by: Rigoberto Craft MD Exam Type: Cardiac Transthoracic Echocardiogram and Thoracic Cardiac Transthoracic Echocardiogram Exam Findings & Impression: Indications: patient with syncope Views: parasternal long and parasternal short Pericardial Effusion: the pericardial space was visualized and was negative for a pericardial effusion LV Function: the LV was not well visualized RV Size: the heart was visualized with a normal R ventricle size Other findings: No pericardial effusion, possibly mildly depressed EF Overall Impression: indeterminate Thoracic Exam Findings & Impression: Other Indications: Lightheadedness Right Lung B-Lines: the R chest was visualized and no or few B lines were seen Left Lung B-Lines: the L chest was visualized and no or few B lines were seen Overall Impression: negative Images: Images Saved: Yes Accession Number: [id number] Rigoberto Craft MD IMG POINT OF CARE EXAMS Edited Result - Final * (ABNORMAL) Troponin (09/11/2025 8:23 PM EST) Pathologist [facility] Troponin-T HS Gen5 23(H) 0 - 14 ng/L 09/11/2025 8:45 PM EST [facility] Blood (Blood) Venipuncture / Unknown 09/11/2025 8:23 PM EST 09/11/2025 8:26 PM EST Rigoberto Craft MD LAB BLOOD BKR ORDERABLES Final Result Performing Organization Address City/[facility]/ZIP Co de Phone Number [address] [address] * Thyroid Stimulating Hormone (TSH), with Reflex (09/11/2025 7:11 PM EST) Pathologist [facility] TSH 3.40 0.40 - 7.50 uIU/mL 09/11/2025 7:51 PM EST [facility] Blood (Blood) Venipuncture / Unknown 09/11/2025 7:11 PM EST 09/11/2025 7:18 PM EST us Rigoberto Craft MD LAB BLOOD BKR ORDERABLES Final Result [address] [address] * (ABNORMAL) Hepatic Panel (LFTs) (09/11/2025 7:11 PM EST) Pathologist [facility] AST 25 <40 U/L 09/11/2025 7:51 PM EST [facility] ALT 17 <50 U/L 09/11/2025 7:51 PM [facility] Alkaline Phosphatase 76 40 - 130 U/L 09/11/2025 7:51 PM [facility] Bilirubin, Total 1.3(H) 0.0 - 1.2 mg/dL 09/11/2025 7:51 PM [facility] Bilirubin, Direct 0.3 0.0 - 0.3 mg/dL 09/11/2025 7:51 PM EST [facility] Total Protein 7.4 6.4 - 8.3 g/dL 09/11/2025 7:51 PM [facility] Albumin 4.3 3.5 - 5.2 g/dL 09/11/2025 7:51 PM [facility] Globulin 3.1 1.9 - 4.1 g/dL 09/11/2025 7:51 PM [facility] Blood (Blood) Venipuncture / Unknown 09/11/2025 7:11 PM EST 09/11/2025 7:18 PM EST us Rigoberto Craft MD LAB BLOOD BKR ORDERABLES Final Result Performing Organization Address City/[facility]/ZIP Co de Phone Number [address] [address] * Magnesium (09/11/2025 7:11 PM EST) Magnesium 2.2 1.7 - 2.6 mg/dL 09/11/2025 7:51 PM [facility] Blood (Blood) Venipuncture / Unknown 09/11/2025 7:11 PM EST 09/11/2025 7:18 PM EST us Rigoberto Craft MD LAB BLOOD BKR ORDERABLES Final Result Performing Organization Address City/[facility]/ZIP Co de Phone Number [address] [address] * (ABNORMAL) PT-INR (09/11/2025 7:11 PM EST) PT 23.0(H) 10.0 - 13.0 sec 09/11/2025 7:27 PM [facility] INR 1.8(H) 0.9 - 1.1 09/11/2025 7:27 PM [facility] Comment:Therapeutic Range 2. 0 - 3.5 Blood (Blood) Venipuncture / Unknown 09/11/2025 7:11 PM EST 09/11/2025 7:18 PM EST us Rigoberto Craft MD LAB BLOOD BKR ORDERABLES Final Result [address] [address] * (ABNORMAL) CBC and Differential (09/11/2025 7:06 PM EST) WBC 6.90 4.00 - 11.00 K/uL 09/11/2025 8:00 PM [facility] RBC 4.46(L) 4.50 - 5.90 M/uL 09/11/2025 8:00 PM [facility] Hemoglobin 14.1 13.5 - 17.5 g/dL 09/11/2025 8:00 PM [facility] Hematocrit 40.8(L) 41.0 - 53.0 % 09/11/2025 8:00 PM [facility] MCV 91.5 80.0 - 100.0 fL 09/11/2025 8:00 PM [facility] MCH 31.6(H) 27.0 - 31.0 pg 09/11/2025 8:00 PM [facility] MCHC 34.6 32.0 - 36.0 g/dL 09/11/2025 8:00 PM [facility] MPV 10.9 8.4 - 12.0 fL 09/11/2025 8:00 PM [facility] RDW-CV 12.4 11.5 - 14.5 % 09/11/2025 8:00 PM [facility] PLT 181 150 - 450 K/uL 09/11/2025 8:00 PM [facility] Neutrophils 51.2 % 09/11/2025 8:00 PM [facility] Lymphocytes 33.3 % 09/11/2025 8:00 PM [facility] Monocytes 9.7 % 09/11/2025 8:00 PM [facility] Eosinophils 4.8 % 09/11/2025 8:00 PM [facility] Basophils 0.9 % 09/11/2025 8:00 PM [facility] Imm Grans 0.1 % 09/11/2025 8:00 PM [facility] NRBC 0.0 <=0.0 /100 WBCs 09/11/2025 8:00 PM [facility] Absolute Neutrophils 3.53 1.92 - 7.60 K/uL 09/11/2025 8:00 PM [facility] Absolute Lymphocytes 2.30 0.72 - 4.10 K/uL 09/11/2025 8:00 PM [facility] Absolute Monocytes 0.67 0.16 - 1.10 K/uL 09/11/2025 8:00 PM [facility] Absolute Eosinophils 0.33 0.00 - 0.50 K/uL 09/11/2025 8:00 PM [facility] Absolute Basophils 0.06 0.00 - 0.15 K/uL 09/11/2025 8:00 PM [facility] Absolute Imm Grans 0.01 0.00 - 0.09 K/uL 09/11/2025 8:00 PM [facility] Absolute NRBC 0.00 <=0.00 K cells/uL 09/11/2025 8:00 PM [facility] Absolute Neutrophils 3.53 1.92 - 7.60 K/uL 09/11/2025 8:00 PM [facility] Comment:Automated cell count . Manual ANC may differ if performed. Diff Type Auto 09/11/2025 8:00 PM [facility] Blood (Blood) Venipuncture / Unknown 09/11/2025 7:06 PM EST 09/11/2025 7:18 PM EST us Mendoza Aguilar MD LAB BLOOD BKR ORDERABLES Final Result [facility] [address], [place] [id number] * (ABNORMAL) Troponin (09/11/2025 7:06 PM EST) Troponin-T HS Gen5 26(H) 0 - 14 ng/L 09/11/2025 7:37 PM [facility] Blood (Blood) Venipuncture / Unknown 09/11/2025 7:06 PM EST 09/11/2025 7:18 PM EST us Mendoza Aguilar MD LAB BLOOD BKR ORDERABLES Final Result [address] [address] * Basic Metabolic Panel (BMP) (09/11/2025 7:06 PM EST) Sodium 139 136 - 145 mmol/L 09/11/2025 7:41 PM [facility] Potassium 3.7 3.4 - 5.1 mmol/L 09/11/2025 7:41 PM [facility] Chloride 105 98 - 107 mmol/L 09/11/2025 7:41 PM [facility] CO2 23 20 - 31 mmol/L 09/11/2025 7:41 PM [facility] BUN 20 6 - 23 mg/dL 09/11/2025 7:41 PM [facility] Creatinine 1.00 0.60 - 1.30 mg/dL 09/11/2025 7:41 PM [facility] Glucose 95 70 - 99 mg/dL 09/11/2025 7:41 PM [facility] Calcium 9.4 8.5 - 10.5 mg/dL 09/11/2025 7:41 PM [facility] eGFR 76 >59 mL/min/1.7 3m2 09/11/2025 7:41 PM [facility] Comment:Estimated glomerular filtration rate calculated using the CKD-EPI refit equation. Anion Gap 11 3 - 17 mmol/L 09/11/2025 7:41 PM [facility] Blood (Blood) Venipuncture / Unknown 09/11/2025 7:06 PM EST 09/11/2025 7:18 PM EST us Mendoza Aguilar MD LAB BLOOD BKR ORDERABLES Final Result Performing Organization Address City/[facility]/ZIP Co de Phone Number [address] [address] * ECG 12-LEAD (09/11/2025 5:54 PM EST) Ventricular Rate EKG/MIN 37 BPM [facility] Atrial Rate 37 BPM [facility] TN Interval 256 ms [facility] QRS Duration 164 ms [facility] QT Interval 500 ms [facility] QTC Interval 392 ms [facility] P [place] 55 degrees [facility] R Wave [place] -44 degrees [facility] T Wave [place] 16 degrees [facility] 09/11/2025 5:54 PM EST 09/12/2025 11:48 AM EST Narrative [facility] - 09/12/2025 11:48 AM EST Critical Test Result: Low HR Marked sinus bradycardia with 1st degree A-V block Left axis deviation Right bundle branch block Voltage criteria for left ventricular hypertrophy Abnormal ECG When compared with ECG of 22-Apr-2021 15:49, No significant change was found Confirmed by Devin PRICE ([id number]) on 09/12/2025 11:48:51 AM us Mendoza Aguilar MD ECG ORDERABLES Final Re sult [facility] documented in this encounter Visit Diagnoses Diagnosis Lightheadedness- Primary Dizziness and giddiness documented in this encounter Administered Medications Inactive Administered Medications - up to 3 most recent administrations Medication Order MAR Action Action Date Dose Rate Site sodium chloride (NS) 0.9 % syringe flush 3 mL 3 mL, Intravenous, As needed, line care, Starting on 09/11/25 at 1757, Per Institutional IV Line Care Policy. warfarin (COUMADIN) tablet 5 mg 5 mg, Oral, Once, On 09/11/25 at 2130, For 1 dose, Warfarin dosing based on daily lab results. If INR above 4 contact RC before administering. THIS IS A LOW RISK HAZARDOUS AGENT. Must use appropriate precautions when handling and disposing of this agent., INR Goal: 2.5-3.5 Given 09/11/2025 9:42 PM EST 5 mg documented in this encounter Active and Recently Administered Medications Times are shown in EST. Scheduled Medication Order 09/09/2025 09/10/2025 09/11/2025 warfarin (COUMADIN) tablet 5 mg (COMPLETED) 5 mg, Oral, Once, On 09/11/25 at 2130, For 1 dose, Warfarin dosing based on daily lab results. If INR above 4 contact RC before administering. THIS IS A LOW RISK HAZARDOUS AGENT. Must use appropriate precautions when handling and disposing of this agent., INR Goal: 2.5-3.5 6282 (Given - Provid er: Jose Daniel Sutherland RN) PRN Medication Order 09/09/2025 09/10/2025 09/11/2025 sodium chloride (NS) 0.9 % syringe flush 3 mL 3 mL, Intravenous, As needed, line care, Starting on 09/11/25 at 1757, Per Institutional IV Line Care Policy. documented in this encounter Care Teams Lead Instructor/Flight Attendant Relationship Specialty Start Date End Date Francisca Juarez DO [address] [place] [address] [place] [address] PCP - General Family Medicine 09/11/25 Nehemias Ordoñez MD [address] [place] [address] [email or web address] Cad Designer Drafter Cardiology 10/20/19 documented as of this encounter Additional Source Comments The information contained in this document represents components of the legal health record. It is not the complete legal health record.[facility]
--- OUTSIDE RECORDS SUMMARY | 2025-09-11 21:00 | XMS_ITS | Encounter Summary ---
Author Organization [facility] Address [address] [place] [address] Phone Care Team Providers Care Contract Post Office Clerk Name Role Phone Nehemias Ordoñez MD Unavailable [phone] Francisca Juarez DO Primary Care Provider [phone] Encounter Details Date Type Department Care Team (Late st Contact Info) Description 09/11/2025 9:00 PM EST Ancillary Procedure [address] [address] Rigoberto Craft MD [address] [place] [address] [email or web address] Arrived Social History Tobacco Use Types Packs/Day Years [...] on file documented as of this encounter Plan of Treatment Upcoming Encounters Date Type Department Care Team (Late st Contact Info) Description 02/07/2026 1:00 PM EDT Office Visit [facility] [address] [place] [address] Yadira Alegre, SHARON [address] [address] [email or web address] documented as of this encounter Procedures Procedure Name Priority Date/Time Associated Diagnosis Comments US BEDSIDE Routine 09/11/2025 8:56 PM EST documented in this encounter Results [...] negative Images: Images Saved: Yes Accession Number: [id number] Rigoberto Craft MD IMG POINT OF CARE EXAMS Edited Result - Final documented in this encounter Visit Diagnoses Not on filedocumented in this encounter Care Teams Contract Post Office Clerk Relationship Specialty Start Date End Date Francisca Juarez DO [address] [place] [address] [place] [address] PCP - General Family Medicine 09/11/25 Nehemias Ordoñez MD [address] [place] [phone] [email or web address] Collateral Specialist Cardiology 10/20/19 documented as of this encounter Additional Source Comments The information contained in this document represents components of the legal health record. It is not the complete legal health record.[facility]
[2025-09-15 10:12] VITALS: BP 120/60; PULSE 52; BMI 26.3
--- NOTE | 2025-09-15 10:12 | MHC.OFFVIS ---
Vital Signs 09/15/25 10:12 Height 5 ft Weight 134 lb 7.712 oz BMI 26.3 BP 120/60 Blood Pressure Location Lt brachial Position Sitting Pulse 52 Intake Visit Reasons: f/up dr arriaza Allergies No Known Allergies Allergy (Verified 09/08/25 15:57) Medication List - Last Reconciled 09/15/25 by Alonso Rajan MD amlodipine 5 mg PO DAILY aspirin 81 mg PO DAILY warfarin 5 mg PO DAILY HPI Comments Details: Kelly returns for follow-up regarding aortic valve replacement, atrial fibrillation and hypertension. Per patient, rheumatic fever as a child. This led to aortic regurgitation and then eventually mechanical aortic valve replacement. This was performed in [facility] in 1990. In the last couple of years, he has also had atrial fibrillation. The last sinus EKGs from 2020 that showed significant sinus bradycardia. He was referred to EP and has undergone atrial fibrillation ablation. Overall, he states he is feeling good. Still travels back and forth [place] and [facility] and he states he feels well. One ER visit at [facility] but unclear reason. We need to get that report. [facility] Medical History (Updated 09/15/25 @ 12:34 by Alonso Rajan MD) Retrognathia ELBERT (obstructive sleep apnea) Persistent atrial fibrillation Rheumatic tricuspid regurgitation Sinus bradycardia Ascending aorta dilatation Surgical History (Updated 09/15/25 @ 12:31 by Alonso Rajan MD) Status post mechanical aortic valve replacement History of photovaporization of prostate (~11/13/19) History of aortic valve replacement (~1990) Family History Father No problems noted. Mother Cancer Social History Alcohol intake: never Patient Tobacco Use Status: Former Tobacco user Review of Systems Const Denies weakness ENT Denies dizziness Card Denies chest pain, Denies chest pain with activity, Denies syncope, Denies rapid heart rate, Denies pedal edema, Denies edema, Denies leg edema, Denies lightheadedness, Denies palpitations, Denies dyspnea, Denies dyspnea on exertion and Denies orthopnea Resp Denies cough, Denies dyspnea and Denies dyspnea on exertion GI Denies hematochezia and Denies change in stool character Musc Denies abnormal gait, Denies muscle cramps, Denies muscle weakness, Denies numbness, Denies radiating pain into limb and Denies tingling Neuro Denies abnormal gait, Denies dizziness, Denies syncope, Denies numbness, Denies tingling and Denies weakness Endo Denies palpitations Physical Exam Vital Signs: Last Vital Signs Pulse 52 09/15/25 10:12 BP 120/60 09/15/25 10:12 BMI result Body Mass Index 26.3 Const General: cooperative, comfortable and no acute distress Orientation/consciousness: patient oriented x3 HEENT Other: Unremarkable Neck Neck: Yes normal visual inspection Chest Chest palpation & inspection: normal inspection of the chest Resp Auscultation: clear to auscultation bilaterally, no crackles and no wheezes Cardio Jugular venous distension: no JVD Palpation: normal PMI Heart sounds: Other heart sounds present (Normal prosthetic heart sound with 2/6 TEODORA aortic area) GI Palpation (GI): Soft to palpation Back/Spine/Pelvis Other: unremarkable Skin General skin exam: no rashes or lesions noted Neuro General: patient oriented x3 Extrem General: Yes no clubbing, cyanosis or edema Psych Mental Status: mental status grossly normal Assessment & Plan Assessment & Plan (1) Status post mechanical aortic valve replacement: Code(s): Z95.2 - Presence of prosthetic heart valve Category: Surgical Plan: In the last echocardiogram, normal function mechanical aortic valve. Mean gradient is 11 mm Hg. Continue aspirin/warfarin as currently on. (2) Rheumatic tricuspid regurgitation: Code(s): I07.1 - Rheumatic tricuspid insufficiency Category: Medical Plan: Moderate tricuspid regurgitation on the echocardiogram. No specific intervention at this time. (3) Persistent atrial fibrillation: Code(s): I48.19 - Other persistent atrial fibrillation Category: Medical Plan: Status post atrial fibrillation ablation. Remains in sinus rhythm. Continue anticoagulation. (4) Ascending aorta dilatation: Code(s): I77.810 - Thoracic aortic ectasia Category: Medical Plan: In the last echo, ascending aortic size 4.6 cm. Prior to that, 4.3 cm. In the CTA chest from 10/2024, ascending aortic size 4.4 cm. We will follow up on the repeat echocardiogram. (5) Essential hypertension: Code(s): I10 - Essential (primary) hypertension Category: Medical Plan: Continue amlodipine. (6) ELBERT (obstructive sleep apnea): Code(s): G47.33 - Obstructive sleep apnea (adult) (pediatric) Category: Medical Plan: Follow up with sleep medicine. Orders: Orders CA echo transthoracic complete 6 Months I77.810 - Thoracic aortic ectasia, Z95.2 - Presence of prosthetic heart valve ECG 3 day holter monitor 6 Months I48.19 - Other persistent atrial fibrillation Medications: Refilled amlodipine 5 mg PO DAILY 90 tabs 3RF amlodipine 5 mg PO DAILY 90 tabs 3RF Coding Level of Care Code Est Pt Level 4 (19239) Add On Problem Visit Only Diagnoses Status post mechanical aortic valve replacement Z95.2 Rheumatic tricuspid regurgitation I07.1 Persistent atrial fibrillation I48.19 Ascending aorta dilatation I77.810 Essential hypertension I10 ELBERT (obstructive sleep apnea) G47.33
--- OUTSIDE RECORDS SUMMARY | 2025-09-15 10:17 | XMS_ITS | Encounter Summary ---
Author Organization [facility] Address [address] [place] [address] [place] [address] Phone Care Team Providers Care Faceter Name Role Phone Francisca Juarez DO Primary Care Provider Nehemias Ordoñez MD Unavailable [phone] Francisca Juarez DO Primary Care Provider Encounter Details Date Type Department Care Team (Latest Contact Info) Description 04/15/2020 Transcribe Orders [facility] Phleb Main 30 [place] [address] Luis Horan MD [address] [place] [address], [address] [address] [email or web address] Enlarged prostate with urinary obstruction (Primary Dx) Social History Tobacco Use Types Packs/Day Years Used Date Smoking Tobacco: Former Cigarettes 1 9 0 11/13/1971 - 11/13/1979 Smokeless Tobacco: Never Alcohol Use Standard Drinks/Week Comments Yes 1 (1 standard drink = 0.6 oz pur e alcohol) Sex and Gender Information Value Date Recorded Sex Assigned at Male 07/16/2020 2:17 AM EDT Legal Sex Male 10:09 PM EDT Gender Identity Male 07/16/2020 2:17 AM EDT Sexual Orientation Not on file documented as of this encounter Plan of Treatment Upcoming Encounters Date Type Department Care Team (Late st Contact Info) Description 02/07/2026 1:00 PM EDT Office Visit [facility] G[facility] [address] [place] [address] Yadira Alegre, SHARON 10 [facility] 2 [place] [address] [email or web address] documented as of this encounter Results * PSA (screening) (04/15/2020 4:00 PM EDT) PSA 0.47 0 - 4.00 ng/mL [facility] Blood 04/15/2020 4:00 PM EDT 04/15/2020 4:02 PM EDT us Luis Horan MD LAB BLOOD BKR ORDERABLES Final Result [facility] [address] [place] [address] documented in this encounter Visit Diagnoses Diagnosis Enlarged prostate with urinary obstruction- Primary Hypertrophy of prostate with urinary obstruction and other lower urinary tract symptoms (LUTS) documented in this encounter Additional Health Concerns Infection Onset Date Last Indicated Resolved Time CoV-Exposed Comment:Recent close contact 08/31/2020 08/31/2020 09/14/2020 1:25 AM EST documented as of this encounter Care Teams Faceter Relationship Specialty Start Date End Date Francisca Juarez DO PCP - General Family Medicine 10/06/19 09/10/25 Francisca Juarez DO [address] [place] [address] PCP - General Family Medicine 09/11/25 Nehemias Ordoñez MD [address] [address] [email or web address] Office Support Clerk Cardiology 10/20/19 documented as of this encounter Additional Source Comments The information contained in this document represents components of the legal health record. It is not the complete legal health record.[facility]
--- OUTSIDE RECORDS SUMMARY | 2025-09-15 10:17 | XMS_ITS | Encounter Summary ---
Author Organization [facility] Address [address] [employer] [facility] [address] [place] [address] Phone Care Team Providers Care Dust Brush Assembler Name Role Phone Francisca Juarez DO Primary Care Provider Nehemias Ordoñez MD Unavailable [phone] Francisca Juarez DO Primary Care Provider Encounter Details Date Type Department Care Team (Late st Contact Info) Description 12/04/2019 Transcribe Orders [facility] Specimen Processing 30 [place] [address] Mckenzie Car, RADIO DIVISION OFFICER 38 [facility] [address] [place] [address] [email or web address] Atrial fibrillation, unspecified type (Primary Dx) Social History Tobacco Use Types [...] Description 02/07/2026 1:00 PM EDT Office Visit [facility] 10 [place] [address] Yadira Alegre, SHARON [address] [address] [email or web address] documented as of this encounter Results * (ABNORMAL) PT-INR (12/04/2019 4:10 AM EDT) PT 30.6(H) 10.2 - 12.9 sec [facility] INR 2.7(H) 0.9 - 1.1 [facility] Comment:Therapeutic range fo r oral Vitamin K antagonists: 2.0-3.5 Blood 12/04/2019 4:10 AM EDT 12/04/2019 8:13 AM EDT us Mckenzie Car RADIO DIVISION OFFICER LAB BLOOD BKR ORDERABLES Final Result [facility] 30 [place] [address] documented in this encounter Visit Diagnoses Diagnosis Atrial fibrillation, unspecified type- Primary documented in this encounter Additional Health Concerns Infection Onset Date Last Indicated Resolved Time CoV-Risk 01/31/2020 01/31/2020 02/14/2020 1:23 AM EDT CoV-Exposed Comment:Recent close contact 08/31/2020 08/31/2020 09/14/2020 1:25 AM EST documented as of this encounter Care Teams Dust Brush Assembler Relationship Specialty Start Date End Date Francisca Juarez DO PCP - General Family Medicine 10/06/19 09/10/25 [place] [address] PCP - General Family Medicine 09/11/25 Nehemias Ordoñez MD [address] [place] [address] [email or web address] Oliver Filter Operator Cardiology 10/20/19 documented as of this encounter Additional Source Comments The information contained in this document represents components of the legal health record. It is not the complete legal health record.[facility]
--- OUTSIDE RECORDS SUMMARY | 2025-09-15 10:17 | XMS_ITS | Encounter Summary ---
Author Organization [facility] Address [address] [employer] [facility] [address] [place] [address] Phone Care Team Providers Care Outreach Clinician Name Role Phone Francisca Juarez DO Primary Care Provider [phone] Nehemias Ordoñez MD Unavailable [phone] Francisca Juarez DO Primary Care Provider Encounter Details Date Type Department Care Team (Late st Contact Info) Description 03/20/2024 Procedure Pass [facility] Endoscopy Admitting Dept Virtual Department 30 [place] [address] Social History Tobacco Use Types Packs/Day Years [...] with a working camera? Not on file Sex and Gender Information Value Date Recorded Sex Assigned at Male 07/16/2020 2:17 AM EDT Legal Sex Male 10:09 PM EDT Gender Identity Male 07/16/2020 2:17 AM EDT Sexual Orientation Not on file documented as of this encounter Plan of Treatment Upcoming Encounters Date Type Department Care Team (Late st Contact Info) Description 02/07/2026 1:00 PM EDT Office Visit [facility] Gastroenterology Clinic 10 [place] [address] Yadira Alegre, SHARON [address] [address] [email or web address] documented as of this encounter Visit Diagnoses Not on filedocumented in this encounter Care Teams Outreach Clinician Relationship Specialty Start Date End Date Francisca Juarez DO PCP - General Family Medicine 10/06/19 09/10/25 Francisca Juarez DO [address] [place] [address] [place] [address] PCP - General Family Medicine 09/11/25 Nehemias Ordoñez MD [address] [place] [address] [email or web address] Vamp Maker Cardiology 10/20/19 documented as of this encounter Additional Source Comments The information contained in this document represents components of the legal health record. It is not the complete legal health record.[facility]
--- OUTSIDE RECORDS SUMMARY | 2025-09-15 10:17 | XMS_ITS | Encounter Summary ---
Author Organization [facility] Address [address] [employer] [facility] [address] [place] [address] Phone Care Team Providers Care Teller Supervisor Name Role Phone Francisca Juarze DO Primary Care Provider [phone] Nehemias Ordoñez MD Unavailable [phone] Francisca Juarez DO Primary Care Provider [phone] Reason for Referral * MRI/CAT Scan - Closed Specialty Diagnoses / Procedures Referred By Isela vela Referred To Contact Radiology Diagnoses Dementia without behavioral disturbance, unspecified dementia type Procedures CT Head Jose Daniel Garber MD, PhD Phone: tel: fax: [email or web address] Referral ID Status Reason Start Date Expiration Date Visits Re quested Visits Authorized [id number] Closed 07/06/2020 07/06/2021 1 1 Encounter Details Date Type Department Care Team (Latest Contact Info) Description 07/06/2020 Transcribe Orders Virtual Department 30 [place] [address] Jose Daniel Garber MD, PhD [address] [facility] [place] [address] Dementia without behavioral disturbance, unspecified dementia type (Primary Dx) Social History Tobacco Use [...] Description 02/07/2026 1:00 PM EDT Office Visit [facility]astro[facility] 10 [place] [address] Yadira Alegre, MILK PICKUP DRIVER [address] [address] [email or web address] documented as of this encounter Results * CT HEAD WITHOUT CONTRAST (07/07/2020 2:09 PM EDT) Anatomical Region Laterality Modality Head Computed Tomogra phy 07/07/2020 4:18 PM EDT Impressions 07/07/2020 4:23 PM EDT 1. Mild progression of moderate generalized atrophy since 2006. 2. No acute intracranial pathology or mass. 3. Postop changes in the left middle ear and mastoids. POS - [id number] Narrative 07/07/2020 4:23 PM EDT Nonenhanced exam. Compare 04/15/2007. FINDINGS: Moderate generalized atrophy minimally progressed since 2006. Commensurate ventricular dilatation. No intracranial hemorrhage. No infarct, mass or mass effect. Basilar cisterns widely patent. No signs of elevated intracranial pressure. No inflammatory changes in the upper paranasal sinuses. Left ossicle chain is absent and there appears to been a large mastoidectomy. Right ossicle chain is grossly intact. There are coalescent mastoid air cells on the right consistent with chronic mastoiditis but no soft tissue within them at this time. No evidence of calvarial trauma or metastatic disease Procedure Note Devin Ashley MD - 07/07/2020 Nonenhanced exam. Compare 04/15/2007. FINDINGS: Moderate generalized atrophy minimally progressed since 2006. Commensurateventricular dilatation. No intracranial hemorrhage. No infarct, mass or mass effect. Basilar cisterns widely patent. No signs of elevated intracranialpressure. No inflammatory changes in the upper paranasal sinuses. Left ossicle chain is absent and there appears to been a largemastoidectomy. Right ossicle chain is grossly intact. There are coalescent mastoid aircells on the right consistent with chronic mastoiditis but no soft tissuewithin them at this time. No evidence of calvarial trauma or metastatic disease IMPRESSION: 1. Mild progression of moderate generalized atrophy since 2006. 2. No acute intracranial pathology or mass. 3. Postop changes in the left middle ear and mastoids. POS - [id number] Jose Daniel Garber MD, PhD IMG CT HEAD/NECK Final Result documented in this encounter Visit Diagnoses Diagnosis Dementia without behavioral disturbance, unspecified dementia type- Primary Dementia without behavioral disturbance, unspecified dementia type documented in this encounter Additional Health Concerns Infection Onset Date Last Indicated Resolved Time CoV-Exposed Comment:Recent close contact 08/31/2020 08/31/2020 09/14/2020 1:25 AM EST documented as of this encounter Care Teams Teller Supervisor Relationship Specialty Start Date End Date Francisca Juarez DO PCP - General Family Medicine 10/06/19 09/10/25 Francisca Juarez DO [address] [place] [address] [place] [address] PCP - General Family Medicine 09/11/25 Nehemias Ordoñez MD [address] [place] [address] [email or web address] Tester Cardiology 10/20/19 documented as of this encounter Additional Source Comments The information contained in this document represents components of the legal health record. It is not the complete legal health record.[facility]
--- OUTSIDE RECORDS SUMMARY | 2025-09-15 10:17 | XMS_ITS | Data Portability ---
Author Organization [facility] [employer] Address [address] [place] [address] Care Team Providers Care Software Reliability Engineer Name Role Phone HERB WALLACE Referring Provider [phone] HERB WALLACE Referring Provider HERB WALLACE Primary Care Provider [phone] Assessment Encounter Date Assessment Date Assessment LastModified [...] future. He would like to move toward custodial, an assisted living facility with experience with individuals with cognitive dysfunction. He has only in the last few days began investigating that direction by using [employer]. I suggest that the [facility] in his community [facility] will have information about places that provide [...] classification on that testing of cognitive impairment. Norwegian is his second language so results on [...] help for people with memory problems. The [facility] has a senior center, funded by [employer], where there are experienced people that will be able to give you the names of places in the area that have these services. Then, you can go and investigate those organizations to see if they are right for you. Here is address and phone number of the [facility]. If this is the central phone number, just ask to speak to someone at the senior center. [facility] Address: [address] [place] [address] Hours: Open Closes 5PM Follow-up in 2 [...] record ed. [email or web address] [facility] [address], [place], [address], 05/09/2021 12:13:51 Result Notes None recorded. Procedures Surgical History Date Name Laterality Status Provider Name and Address Organization Details Recorded Time 05/15/2021 DATA REVIEW completed Jose Daniel Garber MD [address] [place] [address], [phone], [facility] Neurology [facility] 05/15/2021 12:55:35 Imaging Results None recorded. Procedure [...] Diagnosis Note 1623 Jose Daniel Garber MD [facility] [address] [place] [address] [place] [address] 05/15/2021 12:39:38 05/15/2021 14:01:44 Alzheimer's disease 43850883 G30.1 Mild neuro cognitive disorder [id number] G31.84 Health Concerns Section Related Observation LastModified by Organization Detai ls LastModified Time None Recorded Concern Status LastModified by Organization Details LastModified Time None Recorded Advance Directives Directive None Recorded Payers Insurance Date Sequence Insurance Name Policy Number Policy Hurd Covered Member ID Hurd Member ID Guarantor Name 05/23/2021 2 [place] [id number] Kelly Carter [id number] Kelly Cheney 05/08/2021 1 [place]MENT [place] Kelly Carter [id number] Kelly Cheney Notes Date Note Type [...] lost m ostly. Occasionally he has to char puller to the side of the road [...] not have such problems but lives in [place]. In addition, in the context of his [...] not never when he talks in his quileute language, colloquial Icelandic Armenian. 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 He [...] daughter has mentioned. Jose Daniel Garber MD [address] [place] [address] [place], [address], [facility] Neurology [facility] 05/15/2021 13:30:51
--- OUTSIDE RECORDS SUMMARY | 2025-09-15 10:17 | XMS_ITS | Encounter Summary ---
Author Organization [facility] Address [address] [facility] [address] [place] [address] Phone Care Team Providers Care Production Assistant Name Role Phone Francisca Juarez DO Primary Care Provider Nehemias Ordoñez MD Unavailable [phone] Francisca Juarez DO Primary Care Provider Encounter Details Date Type Department Care Team (Late st Contact Info) Description 12/02/2019 Transcribe Orders [facility] Specimen Processing 30 [place] [address] Jay Harkins MD 38 [facility] [address], [address] [place] [address] [email or web address] Atrial fibrillation, unspecified type (Primary Dx) Social [...] Description 02/07/2026 1:00 PM EDT Office Visit [facility]ology [facility] [address] [place] [address] Yadira Alegre, SHARON 10 [facility] 2 [place] [address] [email or web address] documented as of this encounter Results * (ABNORMAL) PT-INR (12/02/2019 5:15 AM EDT) PT 20.5(H) 10.2 - 12.9 sec [facility] INR 1.8(H) 0.9 - 1.1 [facility] Comment:Therapeutic range fo r oral Vitamin K antagonists: 2.0-3.5 Blood 12/02/2019 5:15 AM EDT 12/02/2019 8:32 AM EDT us Jay Harkins MD LAB BLOOD BKR ORDERABLES Final R esult [address] [address] * (ABNORMAL) CBC (12/02/2019 5:15 AM EDT) WBC 7.03 4.00 - 11.00 K/uL [facility] Comment:Note Reference Range updates to all CBC and Differential results. RBC 2.55(L) 3.90 - 5.69 M/uL [facility] HGB 8.0(L) 12.4 - 17.3 g/dL [facility] Comment:Note updated Referen ce Ranges for all CBC and Differential results. HCT 25.5(L) 37.0 - 51.0 % [facility] PLT 399 140 - 430 K/uL [facility] MCV 100.0(H) 78.0 - 97.0 fL [facility] MCH 31.4 25.0 - 33.0 pg [facility] MCHC 31.4(L) 32.0 - 36.0 g/dL [facility] RDW 17.7(H) 11.0 - 15.0 % [facility] MPV 10.4 8.4 - 12.8 fl [facility] NRBC 0.00 0 /100 WBCs [facility] ABSOLUTE NRBC 0.00 0 K/uL [facility] Blood 12/02/2019 5:15 AM EDT 12/02/2019 8:32 AM EDT us Jay Harkins MD LAB BLOOD BKR ORDERABLES Final R esult [facility] [address] [place] [address] documented in this encounter Visit Diagnoses Diagnosis Atrial fibrillation, unspecified type- Primary documented in this encounter Additional Health Concerns Infection Onset Date Last Indicated Resolved Time CoV-Risk 01/31/2020 01/31/2020 02/14/2020 1:23 AM EDT CoV-Exposed Comment:Recent close contact 08/31/2020 08/31/2020 09/14/2020 1:25 AM EST documented as of this encounter Care Teams Production Assistant Relationship Specialty Start Date End Date Francisca Juarez DO [email or web address] PCP - General Family Medicine 10/06/19 09/10/25 Francisca Juarez DO [address] [place] [address] [place] [address] PCP - General Family Medicine 09/11/25 Nehemias Ordoñez MD [address] [place] [address] [email or web address] Silver Wrapper Cardiology 10/20/19 documented as of this encounter Additional Source Comments The information contained in this document represents components of the legal health record. It is not the complete legal health record.[facility]
--- OUTSIDE RECORDS SUMMARY | 2025-09-15 10:18 | XMS_ITS | Encounter Summary ---
Author Organization [facility] Address [address] [place] [address] Phone Care Team Providers Care Claims Adjuster Name Role Phone Francisca Juarez DO Primary Care Provider Nehemias Ordoñez MD Unavailable [phone] Francisca Juarez DO Primary Care Provider Encounter Details Date Type Department Care Team (Late st Contact Info) Description 11/19/2019 Procedure Pass [facility] 4 ENDO DEPT 55 [facility], 4th [place] [address] Social History Tobacco Use Types Packs/Day Years [...] Description 02/07/2026 1:00 PM EDT Office Visit [facility] Gastroenterology Clinic 10 [place] [address] Yadira Alegre LABEL PINKER [address] [address] [email or web address] documented as of this encounter Visit Diagnoses Not on filedocumented in this encounter Additional Health Concerns Infection Onset Date Last Indicated Resolved Time CoV-Risk 01/31/2020 01/31/2020 02/14/2020 1:23 AM EDT CoV-Exposed Comment:Recent close contact 08/31/2020 08/31/2020 09/14/2020 1:25 AM EST documented as of this encounter Care Teams Claims Adjuster Relationship Specialty Start Date End Date Francisca Juarez DO PCP - General Family Medicine 10/06/19 09/10/25 Francisca Juarez DO [address] [place] [address] [place] [address] PCP - General Family Medicine 09/11/25 Nehemias Ordoñez MD [address] [place] [address] [email or web address] Neuropsychology Service Director Cardiology 10/20/19 documented as of this encounter Additional Source Comments The information contained in this document represents components of the legal health record. It is not the complete legal health record.[facility]
--- OUTSIDE RECORDS SUMMARY | 2025-09-15 10:18 | XMS_ITS | Encounter Summary ---
Author Organization [facility] Address [address] [place] [address] Phone Care Team Providers Care Monitoring Analyst Name Role Phone Francisca Juarez DO Primary Care Provider [phone] Nehemias Ordoñez MD Unavailable [phone] Francisca Juarez DO Primary Care Provider Encounter Details Date Type Department Care Team (Late st Contact Info) Description 07/06/2020 Procedure Pass [facility] Ct Scan - [address] [address] Social History Tobacco Use Types Packs/Day Years [...] Description 02/07/2026 1:00 PM EDT Office Visit [facility] Gastroenterology Clinic [address] [place] [address] Yadira Alegre, LAN MANAGER [address] [address] [email or web address] documented as of this encounter Visit Diagnoses Not on filedocumented in this encounter Additional Health Concerns Infection Onset Date Last Indicated Resolved Time CoV-Exposed Comment:Recent close contact 08/31/2020 08/31/2020 09/14/2020 1:25 AM EST documented as of this encounter Care Teams Monitoring Analyst Relationship Specialty Start Date End Date Francisca Juarez DO PCP - General Family Medicine 10/06/19 09/10/25 Francisca Juarez DO [address] [place] [address] [place] [address] PCP - General Family Medicine 09/11/25 Nehemias Ordoñez MD [address] [place] [address] [email or web address] Sander And Polisher Cardiology 10/20/19 documented as of this encounter Additional Source Comments The information contained in this document represents components of the legal health record. It is not the complete legal health record.[facility]
--- OUTSIDE RECORDS SUMMARY | 2025-09-15 10:18 | XMS_ITS | Encounter Summary ---
Author Organization [facility] Address [address] [place] [address] Phone Care Team Providers Care Pole Setter Name Role Phone Francisca Juarez DO Primary Care Provider Nehemias Ordoñez MD Unavailable [phone] Francisca Juarez DO Primary Care Provider Encounter Details Date Type Department Care Team (Late Contact Info) Description 11/13/2019 Procedure Pass [facility] PERI[facility]IVE DEPT [address] [place] [id number] Social History Tobacco Use Types Packs/Day Years [...] Encounters Date Type Department Care Team (Late Contact Info) Description 02/07/2026 1:00 PM EDT Office Visit [facility] Gastroenterology Clinic 10 [place] [address] Yadira Alegre, TACK MAKER [address] [address] [email or web address] documented as of this encounter Visit Diagnoses Not on filedocumented in this encounter Additional Health Concerns Infection Onset Date Last Indicated Resolved Time CoV-Risk 01/31/2020 01/31/2020 02/14/2020 1:23 AM EDT CoV-Exposed Comment:Recent close contact 08/31/2020 08/31/2020 09/14/2020 1:25 AM EST documented as of this encounter Care Teams Pole Setter Relationship Specialty Start Date End Date Francisca Juarez DO PCP - General Family Medicine 10/06/19 09/10/25 Francisca Juarez DO [address] [place] [address] [place] [address] PCP - General Family Medicine 09/11/25 Nehemias Ordoñez MD [address] [place] [address] [email or web address] Driver Medic Cardiology 10/20/19 documented as of this encounter Additional Source Comments The information contained in this document represents components of the legal health record. It is not the complete legal health record.[facility]
--- OUTSIDE RECORDS SUMMARY | 2025-09-15 10:18 | XMS_ITS | Encounter Summary ---
Author Organization [facility] Address [address] [facility] [address] [place] [address] Phone Care Team Providers Care Research Attorney Name Role Phone Francisca Juarez DO Primary Care Provider Nehemias Ordoñez MD Unavailable Francisca Juarez DO Primary Care Provider Encounter Details Date Type Department Care Team (Late st Contact Info) Description 11/27/2019 Transcribe Orders [facility] Specimen Processing 30 [place] [address] Jay Harkins MD [address] [facility] [address], [address] [place] [address] [email or web address] Atrial fibrillation, unspecified type (Primary Dx) Social [...] Description 02/07/2026 1:00 PM EDT Office Visit [facility] Gastroenterology Clinic [address] [facility] [address] Yadira Alegre, ELECTRICIAN UNDERGROUND [address] [facility] 2 [place] [address] [email or web address] documented as of this encounter Results * (ABNORMAL) PT-INR (11/27/2019 4:10 AM EST) PT 29.4(H) 10.2 - 12.9 sec [facility] INR 2.6(H) 0.9 - 1.1 [facility] Comment:Therapeutic range fo r oral Vitamin K antagonists: 2.0-3.5 Blood 11/27/2019 4:10 AM EST 11/27/2019 7:56 AM EST us Jay Harkins MD LAB BLOOD BKR ORDERABLES Final R esult [facility] 30 [place] [address] documented in this encounter Visit Diagnoses Diagnosis Atrial fibrillation, unspecified type- Primary documented in this encounter Additional Health Concerns Infection Onset Date Last Indicated Resolved Time CoV-Risk 01/31/2020 01/31/2020 02/14/2020 1:23 AM EDT CoV-Exposed Comment:Recent close contact 08/31/2020 08/31/2020 09/14/2020 1:25 AM EST documented as of this encounter Care Teams Research Attorney Relationship Specialty Start Date End Date Francisca Juarez DO PCP - General Family Medicine 10/06/19 09/10/25 Francisca Juarez DO [address] [place] [address] [place] [address] PCP - General Family Medicine 09/11/25 Nehemias Ordoñez MD [address] [place] [address] [email or web address] Magnetic Prospector Cardiology 10/20/19 documented as of this encounter Additional Source Comments The information contained in this document represents components of the legal health record. It is not the complete legal health record.[facility]
--- OUTSIDE RECORDS SUMMARY | 2025-09-15 10:18 | XMS_ITS | Encounter Summary ---
Author Organization [facility] Address [address] [place] [address] Phone Care Team Providers Care Pathology Lab Technician Name Role Phone Trent Dailey MD Primary Care Provider Francisca Juarez DO Primary Care Provider Nehemias Ordoñez MD Unavailable [phone] Francisca Juarez DO Primary Care Provider [phone] Encounter Details Date Type Department Care Team (Late st Contact Info) Description 07/14/2019 Procedure Pass [facility], [address] [address] Social History Tobacco Use Types Packs/Day Years Used Date Smoking Tobacco: Former Alcohol Use Standard Drinks/Week Comments Yes 1 [...] Description 02/07/2026 1:00 PM EDT Office Visit [facility] 10 [place] [address] Yadira Alegre, WEB SITE MANAGER [address] [address] [email or web address] documented as of this encounter Visit Diagnoses Not on filedocumented in this encounter Additional Health Concerns Infection Onset Date Last Indicated Resolved Time CoV-Risk 01/31/2020 01/31/2020 02/14/2020 1:23 AM EDT CoV-Exposed Comment:Recent close contact 08/31/2020 08/31/2020 09/14/2020 1:25 AM EST documented as of this encounter Care Teams Pathology Lab Technician Relationship Specialty Start Date End Date Trent Dailey MD [email or web address] PCP - General Internal Medicine 04/09/18 10/05/19 Francisca Juarez DO [email or web address] PCP - General Family Medicine 10/06/19 09/10/25 Francisca Juarez DO [address] [place] [address] [place] [address] PCP - General Family Medicine 09/11/25 Nehemias Ordoñez MD [address] [place] [address] [email or web address] Photographic Press Screwmaker Cardiology 10/20/19 documented as of this encounter Additional Source Comments The information contained in this document represents components of the legal health record. It is not the complete legal health record.[facility]
--- OUTSIDE RECORDS SUMMARY | 2025-09-15 10:18 | XMS_ITS | Encounter Summary ---
Author Organization [facility] Address [address] [place] [address] Phone Care Team Providers Care Machine Welt Butter Name Role Phone Trent Dailey MD Primary Care Provider [phone] Francisca Juarez DO Primary Care Provider Nehemias Ordoñez MD Unavailable [phone] Francisca Juarez DO Primary Care Provider Encounter Details Date Type Department Care Team (Late st Contact Info) Description 06/15/2019 Procedure Pass [facility] Endoscopy Admitting Dept Virtual Department 30 [place] [address] Social History Tobacco Use Types Packs/Day Years [...] Description 02/07/2026 1:00 PM EDT Office Visit [facility] Gastroenterology Clinic 10 [place] [address] Yadira Alegre, DIRECTOR CHILD ABUSE THERAPY [address] [address] [email or web address] documented as of this encounter Visit Diagnoses Not on filedocumented in this encounter Additional Health Concerns Infection Onset Date Last Indicated Resolved Time CoV-Risk 01/31/2020 01/31/2020 02/14/2020 1:23 AM EDT CoV-Exposed Comment:Recent close contact 08/31/2020 08/31/2020 09/14/2020 1:25 AM EST documented as of this encounter Care Teams Machine Welt Butter Relationship Specialty Start Date End Date Trent Dailey MD [email or web address] PCP - General Internal Medicine 04/09/18 10/05/19 Francisca Juarez DO [email or web address] PCP - General Family Medicine 10/06/19 09/10/25 Francisca Juarez DO [address] [place] [address] [place] [address] PCP - General Family Medicine 09/11/25 Nehemias Ordoñez MD [address] [place] [address] [email or web address] Medical Billing And Coding Specialist Cardiology 10/20/19 documented as of this encounter Additional Source Comments The information contained in this document represents components of the legal health record. It is not the complete legal health record.[facility]
--- OUTSIDE RECORDS SUMMARY | 2025-09-15 10:18 | XMS_ITS | Clinical Summary ---
Author Organization [facility] Address [address] [employer] [facility] [address] [place] [address] Phone Care Team Providers Care Manager Managed Care Name Role Phone Nehemias Ordoñez MD Unavailable [phone] Francisca Juarez DO Primary Care Provider [phone] Allergies No known active allergies Medications warfarin (COUMADIN) 5 MG tablet Take 5 mg by mouth daily. Active sildenafil (VIAGRA) 100 mg tablet Take 100 mg by mouth daily as needed for erectile dysfunction. Active polyethylene glycol (MIRALAX) 17 gram packet Take 17 g by mouth daily. Take daily as needed if you have not had a bowel movement 0 Active Additional Information Patient not taking.Reported on 07/26/2021 acetaminophen (TYLENOL) 325 mg tablet Take 2 tablets (650 mg total) by mouth every 6 (six) hours as needed for mild pain or fever. 0 0 Active senna (SENOKOT) 8.6 mg tablet Take 2 tablets by mouth nightly at bedtime. 0 Active Additional Information Patient not taking.Reported on 07/26/2021 docusate sodium (COLACE) 100 MG capsule Take 1 capsule (100 mg total) by mouth 2 (two) times a day. 0 Active Additional Information Patient not taking.Reported on 07/26/2021 oxybutynin (DITROPAN XL) 10 MG 24 hr tablet Take 1 tablet (10 mg total) by mouth daily. 30 tablet 3 0 Active Additional Information Patient not taking.Reported on 07/26/2021 tadalafiL (CIALIS) 5 MG tablet Take 1 tablet (5 mg total) by mouth daily. 30 tablet 11 0 Active Additional Information Patient not taking.Reported on 07/26/2021 oxyCODONE 5 MG immediate release tablet Take 1 tablet (5 mg total) by mouth every 4 (four) hours as needed for moderate pain. Can partial fill 16 tablet 0 Active Additional Information Patient not taking.Reported on 07/26/2021 blood-glucose meter (FREESTYLE LITE METER) kit FreeStyle Lite Meter kit USE DIRECTED TO CHECK BLOOD SUGARS ONCE A DAY (E11.9) Active amLODIPine (NORVASC) 2.5 MG tablet amlodipine 2.5 mg tablet TAKE 1 TABLET BY MOUTH EVERY DAY Active blood sugar diagnostic (FREESTYLE LITE) Strp strips FreeStyle Lite Strips USE 1 STRIP ONCE A DAY (E11.9, KS) Active warfarin (JANTOVEN) 1 MG tablet Jantoven 1 mg tablet Active valACYclovir (VALTREX) 1000 MG tablet valacyclovir 1 gram tablet TAKE 1 TABLET BY MOUTH 3 TIMES A DAY FOR 7 DAYS Active tobramycin-dex amethasone (TOBRADEX) ophthalmic suspension tobramycin 0.3 %-dexamethasone 0.1 % eye drops,suspension INSTILL ONE DROP INTO BOTH EYES FOUR TIMES DAILY FOR ONE WEEK Active tamsulosin (FLOMAX) 0.4 mg Cap Take 0.4 mg by mouth daily. Active prednisoLONE acetate (PRED FORTE) 1 % ophthalmic suspension prednisolone acetate 1 % eye drops,suspension PUT 1 DROP TO BOTH EYES 4 TIMES DAILY FOR 2 WEEKS Active ketorolac (ACULAR) 0.5 % ophthalmic solution ketorolac 0.5 % eye drops INSTILL 1 DROP INTO BOTH EYES 4 TIMES A DAY FOR 2 WEEKS THEN STOP Active hydrocortisone 2.5 % cream hydrocortisone 2.5 % topical cream with perineal applicator APPLY THIN COAT TO AFFECTED AREA TWICE A DAY Active gabapentin (NEURONTIN) 300 MG capsule gabapentin 300 mg capsule TAKE 1 CAPSULE BY MOUTH THREE TIMES A DAY FOR 28 DAYS Active escitalopram oxalate (LEXAPRO) 5 MG tablet escitalopram 5 mg tablet Active aspirin 81 MG EC tablet aspirin 81 mg tablet,delayed release TAKE 1 TABLET BY MOUTH EVERY DAY Active amLODIPine (NORVASC) 5 MG tablet amlodipine 5 mg tablet TAKE 1 TABLET BY MOUTH EVERY DAY Active Active Problems Problem Noted Date Diagnosed Date 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 LYLE (acute kidney injury) 12/13/2016 History of prosthetic aortic valve 12/13/2016 RBBB 12/13/2016 Sinus bradycardia 12/13/2016 Acute cystitis 12/12/2016 Bacteremia due to Gram-negative bacteria 017 Encounters Date Type Department Care Team Description 09/11/2025 9:00 PM EST Ancillary Procedure [facility], Ultrasound - [facility] [address] [place] [address] Rigoberto Craft MD Arrived 09/11/2025 6:36 PM EST - 09/11/2025 10:29 PM EST Emergency [facility] [address] [place] [address] Rigoberto Craft MD Discharge Disposition: Home or Self Care 07/14/2025 Transcribe Orders [facility] [address] [place] [address] Francisca Juarez DO from Last 3 Months Immunizations Immunization Administration Dates Next Due INFLUENZA, SPLIT VIRUS, TRIVALENT PF 10/30/2013, 05/20/2009 INFLUENZA, SPLIT VIRUS, TRIV ALENT W/ PRESERVATIVE IM 07/09/2011,09/11/2010 Influenza High-Dose Quadriva lent Preservative Free IM 08/09/2020 Influenza High-Dose Trivalen t Preservative Free IM 08/27/2019,06/17/2015 Influenza, Unspecified Formulation 07/02/2008,,07/02/2005 Pneumococcal conjugate PCV13 06/17/2015 Pneumococcal polysaccharide PPSV23 12/27/2008, Td (adult),2 Lf Tetanus Toxo id, PF, Adsorbed 05/19/2015 Tdap 10/12/2008 Zoster live 02/26/2013 Social History Tobacco Use Types Packs/Day Years [...] AM EDT Sexual Orientation Not on file Last Filed Vital Signs Vital Sign Reading [...] Mass Index 21.97 09/11/2025 5:48 PM EST Plan of Treatment Upcoming Encounters Date Type Department Care Team (Late st Contact Info) Description 02/07/2026 1:00 PM EDT Office Visit [facility] [address] [place] [address] Yadira Alegre, TEMPLATE CHECKER [address] [address] [email or web address] Health Maintenance Due Date Last Done Comments DEPRESSION SCREENING 1957 RSV VACCINE (1 - 1-dose 75+ series) 2019 PNEUMOCOCCAL VACCINES (50+ years) (3 of 3 - PCV20 or PCV21) 06/17/2020 06/17/2015, 12/27/2008, 07/02/2005 INFLUENZA VACCINE (#1) 2025 , 08/09/2020, 08/27/2019, Additional history exists Adult Td,Tdap Booster 05/19/2025 05/19/2015, 009 COVID-19 VACCINE ( season) 2025 07/14/2021, 12/23/2020, 11/21/2020 ZOSTER VACCINES Completed 02/14/2021, 09/2019, 02/26/2013 HEPATITIS A VACCINES Aged Out No long er eligible based on patient's age to complete this topic HIB VACCINES Aged Out No longer eligi ble based on patient's age to complete this topic MENINGOCOCCAL VACCINES (ACWY) Aged Out No longer eligible based on patient's age to complete this topic MENINGOCOCCAL VACCINES (B) Aged Out N o longer eligible based on patient's age to complete this topic Medical Devices Implanted Type Area Reverberatory Furnace Operator Device Identifier Shelf Expiration Date Model / Serial / Lot Heart Valve Replacement Clip Hemostasis Resolution 360 Lf Nonsterile 2.8mm Channel 360deg 235cm Bx/20ea - [id number] Implanted:Qty: 3 on 11/19/2019 by Christian Louie MD at [facility] User Replay 08/24/2022 [id number] / [id number] / [id number] Description:esophagus Procedures Procedure Name Priority Date/Time Associated Diagnosis Comments US BEDSIDE Routine 09/11/2025 8:56 PM EST TROPONIN STAT 09/11/2025 8:23 PM EST TSH WITH REFLEX STAT 09/11/2025 7:11 PM EST LFTS (HEPATIC PANEL) STAT 09/11/2025 7:11 PM EST MAGNESIUM STAT 09/11/2025 7:11 PM EST PT-INR STAT 09/11/2025 7:11 PM EST CBC AND DIFFERENTIAL STAT 09/11/2025 7:06 PM EST TROPONIN STAT 09/11/2025 7:06 PM EST BASIC METABOLIC PANEL (BMP) STAT 09/11/2025 7:06 PM EST CBC AND DIFFERENTIAL STAT 09/11/2025 7:06 PM EST ECG 12-LEAD STAT 09/11/2025 5:54 PM EST from Last 3 Months Results * US BEDSIDE (09/11/2025 8:56 PM [...] negative Images: Images Saved: Yes Accession Number: [id number] us Rigoberto Craft MD IMG POINT OF CARE EXAMS Edited Result - Final * (ABNORMAL) Troponin (09/11/2025 8:23 PM EST) Only the most recent of2 resultswithin the time period is included. [facility] Troponin-T HS Gen5 23(H) 0 - 14 ng/L 09/11/2025 8:45 PM EST [facility] Blood (Blood) Venipuncture / Unknown 09/11/2025 8:23 PM EST 09/11/2025 8:26 PM EST Rigoberto Craft MD LAB BLOOD BKR ORDERABLES Final Result [address] [address] * Thyroid Stimulating Hormone (TSH), with Reflex (09/11/2025 7:11 PM EST) [facility] TSH 3.40 0.40 - 7.50 uIU/mL 09/11/2025 7:51 PM EST [facility] Blood (Blood) Venipuncture / Unknown 09/11/2025 7:11 PM EST 09/11/2025 7:18 PM EST Rigoberto Craft MD LAB BLOOD BKR ORDERABLES Final Result [address] [address] * (ABNORMAL) Hepatic Panel (LFTs) (09/11/2025 7:11 PM EST) [facility] AST 25 <40 U/L 09/11/2025 7:51 PM EST [facility] ALT 17 <50 U/L 09/11/2025 7:51 PM EST [facility] Alkaline Phosphatase 76 40 - 130 U/L 09/11/2025 7:51 PM EST [facility] Bilirubin, Total 1.3(H) 0.0 - 1.2 mg/dL 09/11/2025 7:51 PM [facility] Bilirubin, Direct 0.3 0.0 - 0.3 mg/dL 09/11/2025 7:51 PM [facility] Total Protein 7.4 6.4 - 8.3 g/dL 09/11/2025 7:51 PM [facility] Albumin 4.3 3.5 - 5.2 g/dL 09/11/2025 7:51 PM [facility] Globulin 3.1 1.9 - 4.1 g/dL 09/11/2025 7:51 PM [facility] Blood (Blood) Venipuncture / Unknown 09/11/2025 7:11 PM EST 09/11/2025 7:18 PM EST us Rigoberto Craft MD LAB BLOOD BKR ORDERABLES Final Result Performing Organization Address [facility] Co de Phone Number [address] [address] * (ABNORMAL) PT-INR (09/11/2025 7:11 PM EST) PT 23.0(H) 10.0 - 13.0 sec 09/11/2025 7:27 PM [facility] INR 1.8(H) 0.9 - 1.1 09/11/2025 7:27 PM [facility] Comment:Therapeutic Range 2. 0 - 3.5 Blood (Blood) Venipuncture / Unknown 09/11/2025 7:11 PM EST 09/11/2025 7:18 PM EST us Rigoberto Craft MD LAB BLOOD BKR ORDERABLES Final Result Performing Organization Address [facility]/ZIP Co de Phone Number [address] [address] * Magnesium (09/11/2025 7:11 PM EST) Magnesium 2.2 1.7 - 2.6 mg/dL 09/11/2025 7:51 PM [facility] Blood (Blood) Venipuncture / Unknown 09/11/2025 7:11 PM EST 09/11/2025 7:18 PM EST us Rigoberto Craft MD LAB BLOOD BKR ORDERABLES Final Result [facility] [address] [place] [address] * (ABNORMAL) CBC and Differential (09/11/2025 7:06 PM EST) WBC 6.90 4.00 - 11.00 K/uL 09/11/2025 8:00 PM [facility] RBC 4.46(L) 4.50 - 5.90 M/uL 09/11/2025 8:00 PM [facility] Hemoglobin 14.1 13.5 - 17.5 g/dL 09/11/2025 8:00 PM [facility] Hematocrit 40.8(L) 41.0 - 53.0 % 09/11/2025 8:00 PM [facility] MCV 91.5 80.0 - 100.0 fL 09/11/2025 8:00 PM [facility] MCH 31.6(H) 27.0 - 31.0 pg 09/11/2025 8:00 PM [facility] MCHC 34.6 32.0 - 36.0 g/dL 09/11/2025 8:00 PM [facility] MPV 10.9 8.4 - 12.0 fL 09/11/2025 8:00 PM [facility] RDW-CV 12.4 11.5 - 14.5 % 09/11/2025 8:00 PM [facility] PLT 181 150 - 450 K/uL 09/11/2025 8:00 PM [facility] Neutrophils 51.2 % 09/11/2025 8:00 PM [facility] Lymphocytes 33.3 % 09/11/2025 8:00 PM [facility] Monocytes 9.7 % 09/11/2025 8:00 PM [facility] Eosinophils 4.8 % 09/11/2025 8:00 PM [facility] Basophils 0.9 % 09/11/2025 8:00 PM [facility] Imm Grans 0.1 % 09/11/2025 8:00 PM [facility] NRBC 0.0 <=0.0 /100 WBCs 09/11/2025 8:00 PM [facility] Absolute Neutrophils 3.53 1.92 - 7.60 K/uL 09/11/2025 8:00 PM [facility] Absolute Lymphocytes 2.30 0.72 - 4.10 K/uL 09/11/2025 8:00 PM [facility] Absolute Monocytes 0.67 0.16 - 1.10 K/uL 09/11/2025 8:00 PM [facility] Absolute Eosinophils 0.33 0.00 - 0.50 K/uL 09/11/2025 8:00 PM [facility] Absolute Basophils 0.06 0.00 - 0.15 K/uL 09/11/2025 8:00 PM [facility] Absolute Imm Grans 0.01 0.00 - 0.09 K/uL 09/11/2025 8:00 PM [facility] Absolute NRBC 0.00 <=0.00 K cells/uL 09/11/2025 8:00 PM [facility] Absolute Neutrophils 3.53 1.92 - 7.60 K/uL 09/11/2025 8:00 PM [facility] Comment:Automated cell count . Manual ANC may differ if performed. Diff Type Auto 09/11/2025 8:00 PM [facility] Blood (Blood) Venipuncture / Unknown 09/11/2025 7:06 PM EST 09/11/2025 7:18 PM EST us Mendoza Aguilar MD LAB BLOOD BKR ORDERABLES Final Result [address] [address] * Basic Metabolic Panel (BMP) (09/11/2025 7:06 PM EST) Sodium 139 136 - 145 mmol/L 09/11/2025 7:41 PM [facility] Potassium 3.7 3.4 - 5.1 mmol/L 09/11/2025 7:41 PM [facility] Chloride 105 98 - 107 mmol/L 09/11/2025 7:41 PM [facility] CO2 23 20 - 31 mmol/L 09/11/2025 7:41 PM [facility] BUN 20 6 - 23 mg/dL 09/11/2025 7:41 PM [facility] Creatinine 1.00 0.60 - 1.30 mg/dL 09/11/2025 7:41 PM [facility] Glucose 95 70 - 99 mg/dL 09/11/2025 7:41 PM [facility] Calcium 9.4 8.5 - 10.5 mg/dL 09/11/2025 7:41 PM [facility] eGFR 76 >59 mL/min/1.7 3m2 09/11/2025 7:41 PM [facility] Comment:Estimated glomerular filtration rate calculated using the CKD-EPI refit equation. Anion Gap 11 3 - 17 mmol/L 09/11/2025 7:41 PM [facility] Blood (Blood) Venipuncture / Unknown 09/11/2025 7:06 PM EST 09/11/2025 7:18 PM EST us Mendoza Aguilar MD LAB BLOOD BKR ORDERABLES Final Result [address] [id number] * ECG 12-LEAD (09/11/2025 5:54 PM EST) Ventricular Rate EKG/MIN 37 BPM [facility] Atrial Rate 37 BPM [facility] ND Interval 256 ms [facility] QRS Duration 164 ms [facility] QT Interval 500 ms [facility] QTC Interval 392 ms [facility] P [place] 55 degrees [facility] R Wave [place] -44 degrees [facility] T Wave [place] 16 degrees [facility] 09/11/2025 5:54 PM EST [...] Aguilar MD ECG ORDERABLES Final Re sult [facility] from Last 3 Months Insurance [employer] SUPPLEMENT MEDICARE PART A & B [employer] SUPPLEMENT MEDICARE PART A & B [facility] MEDEX SUPPLEMENT MEDICARE PART A & B Clerts! MEDEX SUPPLEMENT MEDICARE PART A & B Clerts! MEDEX SUPPLEMENT MEDICARE PART A & B Clerts! MEDEX SUPPLEMENT MEDICARE PART A & B Clerts! MEDEX SUPPLEMENT MEDICARE PART A & B [facility] MEDEX SUPPLEMENT MEDICARE PART A & B [employer] SUPPLEMENT MEDICARE PART A & [place] [address] [place] [address] Advance Directives For more information, please contact: [phone] (9AM - 5PM [facility], Saturday-Saturday) * Full Code (Presumed) (Latest Code Status on File) Date Activated Date Inactivated Comments 11/13/2019 10:22 AM 11/25/2019 2:28 PM Care Teams Manager Managed Care Relationship Specialty Start Date End Date Francisca Juarez DO [address] [place] [address] [place] [address] PCP - General Family Medicine 09/11/25 Nehemias Ordoñez MD [address] [place] [address] [email or web address] Corner Trimmer Operator Cardiology 10/20/19 Additional Source Comments The information contained in this document represents components of the legal health record. It is not the complete legal health record.[facility]
--- OUTSIDE RECORDS SUMMARY | 2025-09-15 10:18 | XMS_ITS | Encounter Summary ---
Author Organization [facility] Address [address] [place] [address] [place] [address] Phone Care Team Providers Care Commuter Train Operator Name Role Phone Trent Dailey MD Primary Care Provider Francisca Juarez DO Primary Care Provider Nehemias Ordoñez MD Unavailable [phone] Francisca Juarez DO Primary Care Provider [phone] Reason for Referral * MRI/CAT Scan - Closed Specialty Diagnoses / Procedures Referred By Contmarilu t Referred To Contact Radiology Diagnoses Winged scapula Other specified acquired deformities of unspecified limb Procedures MRI Cervical Spine System, Provider Not In, PhD [address] [address] Referral ID Status Reason Start Date Expiration Date Visits Re quested Visits Authorized [id number] Closed 07/14/2019 07/13/2020 1 1 Encounter Details Date Type Department Care Team (Latest Contact Info) Description 07/14/2019 Transcribe Orders Virtual Department [address] [place] [address] Francisca Juarez, DO [address] [place] [address] [email or web address] Winged scapula (Primary Dx); Other specified acquired deformities of unspecified limb Social History Tobacco Use Types Packs/Day Years [...] PM EDT Office Visit [facility] [address] [place] [address] Yadira Alegre, ITALIAN TEACHER [address] [address] [email or web address] documented as of this encounter Results * MRI CERVICAL SPINE (NEURO) FOCUS WITHOUT CONTRAST (08/21/2019 3:46 PM EST) Anatomical Region Laterality Modality C-spine Magnetic Resonan ce 08/21/2019 3:53 PM EST Impressions 08/21/2019 3:58 PM EST Mild degenerative changes without consequence to the major neural structures. POS - [facility] Narrative 08/21/2019 3:58 PM EST HISTORY: Right shoulder pain for 6 months. No trauma. TECHNIQUE: Exam performed on a 1.5 Jo high-field MRI scanner. Sagittal T1, T2 and STIR, axial T2* gradient echo and 3-D bright fluid sequences were obtained. COMPARISON: None. FINDINGS: Vertebral body morphology and alignment are within normal limits. C2-3: There is no spinal canal or neural foraminal stenosis. C3-4: There is disc space narrowing and mild osteophytic spurring. There is no spinal canal or neural foraminal stenosis. C4-5: There is mild osteophytic spurring that indents the ventral margin of the thecal sac. There is no significant spinal canal or neural foraminal stenosis. C5-6: There is disc space narrowing and broad osteophytic spurring. This indents the ventral margin of the thecal sac. There is no significant spinal canal or neural foraminal stenosis. C6-7: There is degenerative endplate change. There is no spinal canal or neural foraminal stenosis. C7-T1: There is no spinal canal or neural foraminal stenosis. T1-2: There is no spinal canal or neural foraminal stenosis. Procedure Note Tejas Patel MD - 08/21/2019 HISTORY: Right shoulder pain for 6 months. No trauma. TECHNIQUE: Exam performed on a 1.5 Jo high-field MRI scanner. SagittalT1, T2 and STIR, axial T2* gradient echo and 3-D bright fluid sequenceswere obtained. COMPARISON: None. FINDINGS: Vertebral body morphology and alignment are within normal limits. C2-3: There is no spinal canal or neural foraminal stenosis. C3-4: There is disc space narrowing and mild osteophytic spurring. Thereis no spinal canal or neural foraminal stenosis. C4-5: There is mild osteophytic spurring that indents the ventral marginof the thecal sac. There is no significant spinal canal or neuralforaminal stenosis. C5-6: There is disc space narrowing and broad osteophytic spurring. Thisindents the ventral margin of the thecal sac. There is no significantspinal canal or neural foraminal stenosis. C6-7: There is degenerative endplate change. There is no spinal canal orneural foraminal stenosis. C7-T1: There is no spinal canal or neural foraminal stenosis. T1-2: There is no spinal canal or neural foraminal stenosis. IMPRESSION: Mild degenerative changes without consequence to the major neuralstructures. POS - [facility]-RW us Provider Not In System PhD IMLuis Manuel Kolb al Result documented in this encounter Visit Diagnoses Diagnosis Winged scapula- Primary Other acquired deformity of other parts of limb Other specified acquired deformities of unspecified limb Winged scapula Other acquired deformity of other parts of limb Other specified acquired deformities of unspecified limb documented in this encounter Additional Health Concerns Infection Onset Date Last Indicated Resolved Time CoV-Risk 01/31/2020 01/31/2020 02/14/2020 1:23 AM EDT CoV-Exposed Comment:Recent close contact 08/31/2020 08/31/2020 09/14/2020 1:25 AM EST documented as of this encounter Care Teams Commuter Train Operator Relationship Specialty Start Date End Date Trent Dailey MD PCP - General Internal Medicine 04/09/18 10/05/19 Francisca Juarez DO PCP - General Family Medicine 10/06/19 09/10/25 Francisca Juarez DO [address] [place] [address] [place] [address] PCP - General Family Medicine 09/11/25 Nehemias Ordoñez MD [address] [place] [address] [email or web address] Buckle Wire Inserter Cardiology 10/20/19 documented as of this encounter Additional Source Comments The information contained in this document represents components of the legal health record. It is not the complete legal health record.[facility]
--- OUTSIDE RECORDS SUMMARY | 2025-09-15 10:18 | XMS_ITS | Encounter Summary ---
Author Organization [facility] Address [address] [place] [address] [place] [address] Phone Care Team Providers Care Press Feeder Broomcorn Name Role Phone Peewee Srivastava MD Primary Care Provider [phone] Trent Dailey MD Primary Care Provider [phone] Francisca Juarez DO Primary Care Provider [phone] Nehemias Ordoñez MD Unavailable [phone] Francisca Juarez DO Primary Care Provider [phone] Reason for Referral * Consultation (Elective) - Closed Specialty Diagnoses / Procedures Referred By Contac t Referred To Contact Urology Diagnoses 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) Trent Dailey MD Phone: tel: fax: mailto:[email or web address] Kalpesh Licona MD Phone: tel: mailto:[email or web address] Referral ID Status Reason Start Date Expiration Date Visits Re quested Visits Authorized [id number] Closed 06/18/2018 06/18/2019 6 6 Encounter Details Date Type Department Care Team (Late st Contact Info) Description 04/08/2018 Transcribe Orders [facility] Referral Management [address] [place] [address] Trent Dailey MD [address] [place] [address] 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) (Primary Dx) Social History Tobacco Use Types Packs/Day Years Used Date Smoking Tobacco: Never Assessed Sex and Gender Information Value Date Recorded Sex Assigned at Male 07/16/2020 2:17 AM EDT Legal Sex Male 10:09 PM EDT Gender Identity Male 07/16/2020 2:17 AM EDT Sexual Orientation Not on file documented as of this encounter Plan of Treatment Upcoming Encounters Date Type Department Care Team ([facility] Contact Info) Description 02/07/2026 1:00 PM EDT Office Visit [facility] [address] [place] [address] Yadira Alegre, SHARON [address] [address] [email or web address] Scheduled Referrals Name Type Priority Associated Diagnoses Order Schedule Ambulatory referral to [facility] Urology Outpatient Referral Routine 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) Ordered: 04/08/2018 documented as of this encounter Visit Diagnoses Diagnosis 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)- Primary Unspecified hyperplasia of prostate without urinary obstruction and other lower urinary tract symptoms (LUTS) documented in this encounter Additional Health Concerns Infection Onset Date Last Indicated Resolved Time CoV-Risk 01/31/2020 01/31/2020 02/14/2020 1:23 AM EDT CoV-Exposed Comment:Recent close contact 08/31/2020 08/31/2020 09/14/2020 1:25 AM EST documented as of this encounter Care Teams Press Feeder Broomcorn Relationship Specialty Start Date End Date Peewee Srivastava MD [address] [place] [address] PCP - General 07/09/17 04/08/18 Trent Dailey MD [address] [place] [address] [email or web address] PCP - General Internal Medicine 04/09/18 10/05/19 Francisca Juarez DO [address] [place] [address] PCP - General Family Medicine 10/06/19 09/10/25 Francisca Juarez DO [address] [place], [place] [address] [address] PCP - General Family Medicine 09/11/25 Nehemias Ordoñez MD [address] [place] [address] [email or web address] Labor Relations Representative Cardiology 10/20/19 documented as of this encounter Additional Source Comments The information contained in this document represents components of the legal health record. It is not the complete legal health record.[facility]
--- OUTSIDE RECORDS SUMMARY | 2025-09-15 10:18 | XMS_ITS | Encounter Summary ---
Author Organization [facility] Address [address] [place] [phone] Phone Care Team Providers Care Bowling Alley Refinisher Name Role Phone Trent Dailey MD Primary Care Provider Francisca Juarez DO Primary Care Provider Nehemias Ordoñez MD Unavailable Francisca Juarez DO Primary Care Provider Encounter Details Date Type Department Care Team (Late st Contact Info) Description 05/04/2019 Procedure [facility] Imaging [address] [place] [address] Social History Tobacco Use Types Packs/Day Years [...] Description 02/07/2026 1:00 PM EDT Office Visit [facility] [address] [place] [address] Yadira Alegre, TAPEMAN [address] [address] [email or web address] documented as of this encounter Visit Diagnoses Not on filedocumented in this encounter Additional Health Concerns Infection Onset Date Last Indicated Resolved Time CoV-Risk 01/31/2020 01/31/2020 02/14/2020 1:23 AM EDT CoV-Exposed Comment:Recent close contact 08/31/2020 08/31/2020 09/14/2020 1:25 AM EST documented as of this encounter Care Teams Bowling Alley Refinisher Relationship Specialty Start Date End Date Trent Dailey MD [email or web address] PCP - General Internal Medicine 04/09/18 10/05/19 Francisca Juarez DO [email or web address] PCP - General Family Medicine 10/06/19 09/10/25 Francisca Juarez DO [address] [place] [address] [place] [id number] PCP - General Family Medicine 09/11/25 Nehemias Ordoñez MD [address] [place] [id number] [email or web address] Architect Cardiology 10/20/19 documented as of this encounter Additional Source Comments The information contained in this document represents components of the legal health record. It is not the complete legal health record.[facility]
--- OUTSIDE RECORDS SUMMARY | 2025-09-15 10:18 | XMS_ITS | Encounter Summary ---
Author Organization [facility] Address [address] [facility] [address] [place] [phone] Phone Care Team Providers Care Receiver Name Role Phone Francisca Juraez DO Primary Care Provider Nehemias Ordoñez MD Unavailable [phone] Francisca Juarez DO Primary Care Provider Encounter Details Date Type Department Care Team (Late st Contact Info) Description 11/26/2019 Transcribe Orders [facility] Specimen Processing [address] [place] [address] Jay Harkins MD [address] [facility] [address], [address] [place] [address] [email or web address] Anemia, unspecified type (Primary Dx); Syncope, unspecified syncope type; Atrial fibrillation, unspecified type Social History Tobacco Use Types Packs/Day Years [...] Description 02/07/2026 1:00 PM EDT Office Visit [facility] [address] [place] [address] Yadira Alegre, HOOP PUNCHER [address] [address] [email or web address] documented as of this encounter Results * (ABNORMAL) PT-INR (11/26/2019 4:10 AM EST) PT 37.5(H) 10.2 - 12.9 sec [facility] INR 3.3(H) 0.9 - 1.1 [facility] Comment:Therapeutic range fo r oral Vitamin K antagonists: 2.0-3.5 Blood 11/26/2019 4:10 AM EST 11/26/2019 6:51 AM EST us Jay Harkins MD LAB BLOOD BKR ORDERABLES Final R esult [address] [address] * (ABNORMAL) CBC (11/26/2019 4:10 AM EST) WBC 12.55(H) 4.00 - 11.00 K/uL [facility] Comment:Note Reference Range updates to all CBC and Differential results. RBC 2.30(L) 3.90 - 5.69 M/uL [facility] HGB 7.3(L) 12.4 - 17.3 g/dL [facility] Comment:Note updated Referen ce Ranges for all CBC and Differential results. HCT 22.2(L) 37.0 - 51.0 % [facility] PLT 296 140 - 430 K/uL [facility] MCV 96.5 78.0 - 97.0 fL [facility] MCH 31.7 25.0 - 33.0 pg [facility] MCHC 32.9 32.0 - 36.0 g/dL [facility] RDW 18.9(H) 11.0 - 15.0 % [facility] MPV 10.6 8.4 - 12.8 fl [facility] NRBC 0.00 0 /100 WBCs [facility] ABSOLUTE NRBC 0.00 0 K/uL [facility] Blood 11/26/2019 4:10 AM EST 11/26/2019 6:51 AM EST us Jay Harkins MD LAB BLOOD BKR ORDERABLES Final R esult [facility] [address] [place], [place] [id number] * (ABNORMAL) Comprehensive metabolic panel (11/26/2019 4:10 AM EST) SODIUM 141 133 - 146 mmol/L [facility] POTASSIUM 4.7 3.3 - 5.1 mmol/L [facility] CHLORIDE 108 96 - 108 mmol/L [facility] CO2 26 21 - 35 mmol/L [facility] BUN 13 6 - 19 mg/dL [facility] CREATININE 1.30 0.5 - 1.5 mg/dL [facility] GLUCOSE 96 70 - 99 mg/dL [facility] ALBUMIN 2.9(L) 3.9 - 4.8 g/dL [facility] TOTAL PROTEIN 4.7(L) 6.5 - 8.0 g/dL [facility] CALCIUM 8.1(L) 8.4 - 10.3 mg/dL [facility] ALKALINE PHOSPHATASE 61 39 - 117 U/L [facility] TOTAL BILIRUBIN 0.3 0.0 - 1.2 mg/dL [facility] AST 24 0 - 37 U/L [facility] ALT 16 0 - 40 U/L [facility] GLOBULIN 1.8 1 - 4.8 g/dL [facility] EGFR 53(L) >59 mL/min/1.7 3m2 [facility] Comment:If patient is black, multiply result by 1.159. Estimated glomerular filtration rate calculated using the CKD-EPI equation. ANION GAP 12 10 - 20 mmol/L [facility] Blood 11/26/2019 4:10 AM EST 11/26/2019 6:51 AM EST us Jay Harkins MD LAB BLOOD BKR ORDERABLES Final R esult [facility] [address] [place] [address] documented in this encounter Visit Diagnoses Diagnosis Anemia, unspecified type- Primary Syncope, unspecified syncope type Atrial fibrillation, unspecified type documented in this encounter Additional Health Concerns Infection Onset Date Last Indicated Resolved Time CoV-Risk 01/31/2020 01/31/2020 02/14/2020 1:23 AM EDT CoV-Exposed Comment:Recent close contact 08/31/2020 08/31/2020 09/14/2020 1:25 AM EST documented as of this encounter Care Teams Receiver Relationship Specialty Start Date End Date Francisca Juarez DO PCP - General Family Medicine 10/06/19 09/10/25 Francisca Juarez DO [address] [place] [address] [place] [address] PCP - General Family Medicine 09/11/25 Nehemias Ordoñez MD [address] [place] [id number] [email or web address] Axle Turner Cardiology 10/20/19 documented as of this encounter Additional Source Comments The information contained in this document represents components of the legal health record. It is not the complete legal health record.[facility]
== END 2025-09-15 10:33 | disposition home or self-care (01) ==
LOC: HO.HCS 10:10
PROVIDERS: PCP Family Medicine; Visit Provider Internal Medicine
DX: Z95.2 Presence of prosthetic heart valve (principal); I07.1 Rheumatic tricuspid insufficiency; I48.19 Other persistent atrial fibrillation; I77.810 Thoracic aortic ectasia; I10 Essential (primary) hypertension; G47.33 Obstructive sleep apnea (adult) (pediatric)
CPT/HCPCS: 99214; G2211

== ENCOUNTER → 2025-09-15 10:09 | Outpatient (BNVA) | payer MEDICARE, SELFPAY | PROVIDERS: PCP Family Medicine; Visit Provider Internal Medicine | DX: I10 Essential (primary) hypertension (principal); I48.19 Other persistent atrial fibrillation; I07.1 Rheumatic tricuspid insufficiency; Z87.891 Personal history of nicotine dependence; Z95.2 Presence of prosthetic heart valve; I77.810 Thoracic aortic ectasia; G47.33 Obstructive sleep apnea (adult) (pediatric); Z99.89 Dependence on other enabling machines and devices; Z79.82 Long term (current) use of aspirin; Z79.01 Long term (current) use of anticoagulants | CPT/HCPCS: 99212 ==